=== PATIENT | male | born 1960 | race Two or more races ===

== ENCOUNTER 2024-12-20 07:57 | Inpatient (IN) | payer MEDICAID, OTHER ==
[~2024-12-20] VITALS: Ht 177.8 cm; Wt 95.8 kg
[2024-12-20 05:00] VITALS: BP 124/74; PULSE 102; RESP 18; TEMP 98.8; O2SAT 97
--- NOTE | 2024-12-20 08:45 | ED.PDOC ---
History of Present Illness HPI Comments 64M presents to the ER w/ prior Hx of Liver Cirrhosis which may be associated to the c/c of ABD pain. Pt's reports that the pt is a poor Hx and that he has had his ABD drained 3x in total with the recent drainage of being this Wednesday of 12/16/24. Pt's ABD is swollen and states that he used to drink a lot of alcohol, but is sober now. PMHx of HTN. Denies chills, fever, N/V/D, SOB, CP or no other associated symptom's, modifiers, recent injuries or sick contact at this time. Chief Complaint: Abdominal Pain Time Seen by MD: 08:20 Reviewed Notes: Nurses Notes, Medications, Allergies Allergies: Coded Allergies: NO KNOWN ALLERGIES (Unverified , 12/20/24) Information Source: Patient, Spouse Mode of Arrival: Wheelchair Severity: Moderate Timing: Days Duration: Since onset, Days Prehospital treatment: None Past Medical History PAST MEDICAL HISTORY: HTN Past Medical History (Other): Liver cirrhosis-Drained on Wednesday of 12/16/24 Surgical History: Denies all surgeries Family History Family History: Reviewed,noncontributory to illness, Unknown Social History Smoker: Non-Smoker Alcohol: Denies ETOH Use, Sober Drugs: Denies Drug Use Lives In: Home Constitutional: denies: chills, diaphoresis, fatigue, fever, malaise, sweats, weakness, others EENTM: denies: blurred vision, double vision, ear bleeding, ear discharge, ear drainage, ear pain, ear ringing, eye pain, eye redness, hearing loss, mouth pain, mouth swelling, nasal discharge, nose bleeding, nose congestion, nose pain, photophobia, tearing, throat pain, throat swelling, voice changes, others Respiratory: denies: cough, hemoptysis, orthopnea, SOB at rest, shortness of breath, SOB with excertion, stridor, wheezing, others Cardiovascular: denies: chest pain, dizzy spells, diaphoresis, Dyspnea on exertion, edema, irregular heart beat, left arm pain, lightheadedness, palpitations, PND, syncope, others Gastrointestinal: reports: abdomen distended; denies: abdominal pain, blood streaked bowels, constipated, diarrhea, dysphagia, difficulty swallowing, hematemesis, melena, nausea, poor appetite, poor fluid intake, rectal bleeding, rectal pain, vomiting, others Genitourinary: denies: burning, dysuria, flank pain, frequency, hematuria, incontinence, penile discharge, penile sore, pain, testicle pain, testicle swelling, urgency, others Neurological: denies: dizziness, fainting, headache, left sided numbness, left sided weakness, numbness, paresthesia, pre-existing deficit, right sided numbness, right sided weakness, seizure, speech problems, tingling, tremors, weakness, others Musculoskeletal: denies: back pain, gout, joint pain, joint swelling, muscle pain, muscle stiffness, neck pain, others Integumetry: denies: bruises, change in color, change in hair/nails, dryness, laceration, lesions, lumps, rash, wounds, others Allergic/Immunocompromised: denies: Difficulty Healing, Frequent Infections, Hives, Itching, others Hematologic/Lymphatic: denies: anemia, blood clots, easy bleeding, easy bruising, swollen glands, others Endocrine: denies: excessive hunger, excessive sweating, excessive thirst, excessive urination, flushing, intolerance to cold, intolerance to heat, unexplained weight gain, unexplained weight loss, others Psychiatric: denies: anxiety, bipolar disorder, depression, hopeless, panic disorder, schizophrenia, sleepless, suicidal, others All Other Systems: Reviewed and Negative Physical Exam General Appearance: Moderate Distress, Normal HEENT: Normal ENT Inspection, Pharynx Normal, Scleral Icterus (L), Scleral Icterus (R), TMs Normal Neck: Full Range of Motion, Non-Tender, Normal, Normal Inspection Respiratory: Chest Non-Tender, Lungs Clear, No Accessory Muscle Use, No Respiratory Distress, Normal Breath Sounds Cardiovascular: No Edema, No JVD, No Murmur, No Gallop, Normal Peripheral Pulses, Regular Rate/Rhythm Breast Exam: Deferred Gastrointestinal: Distended, No Organomegaly, Non Tender, No Pulsatile Mass, Normal Bowel Sounds, Soft Genitalia: Deferred Pelvic: Deferred Rectal: Deferred Extremities: No calf tenderness, Normal capillary refill, Normal inspection, Normal range of motion, Non-tender, Pedal edema Musculoskeletal : Apperance: Normal Neurologic: Alert, saw tailer II-XII nml as Tested, No Motor Deficits, Normal Affect, Normal Mood, No Sensory Deficits Cerebellar Function: NOT DONE Reflexes: NOT DONE Skin: Dry, Normal Color, Warm Peripheral Pulses: 3+ Radial (R), 3+ Radial (L) Lymphatic: No Adenopathy Was a procedure done? Was a procedure done?: No Differential Dx Considerations may include: Liver cirrhosis Electrolyte imbalance X-Ray, Labs, Meds, VS Vital Signs Date Time Temp Pulse Resp B/P (MAP) Pulse Ox O2 Delivery O2 Flow Rate FiO2 12/20/24 09:52 100 18 97 Room Air 12/20/24 09:52 97.6 100 18 118/73 (88) 97 97.6 12/20/24 08:07 98.3 102 18 110/75 (87) 98 Lab Test 12/20/24 08:42 12/20/24 08:34 Range/Units White Blood Count 6.1 4.4-10.8 10^3/uL Red Blood Count 3.37 L 4.5-5.90 10^6/uL Hemoglobin 11.6 L 13.5-17.5 g/dL Hematocrit 33.1 L 41.0-53.0 % Mean Corpuscular Volume 98.4 80.0-100.0 fL Mean Corpuscular Hemoglobin 34.4 H 28.0-32.0 pg Mean Corpuscular Hemoglobin Concent 35.0 32.0-36.0 g/dL Red Cell Distribution Width 16.8 H 11.8-14.3 % Platelet Count 230 140-450 10^3/uL Mean Platelet Volume 6.9 6.9-10.8 fL Neutrophils (%) (Auto) 57.5 37.0-80.0 % Lymphocytes (%) (Auto) 19.0 10.0-50.0 % Monocytes (%) (Auto) 17.6 H 0.0-12.0 % Eosinophils (%) (Auto) 3.3 0.0-7.0 % Basophils (%) (Auto) 2.6 H 0.0-2.0 % Neutrophils # (Auto) 3.5 1.6-8.6 10 ^3/uL Lymphocytes # (Auto) 1.2 0.4-5.4 10 ^3/uL Monocytes # (Auto) 1.1 0-1.3 10 ^3/uL Eosinophils # (Auto) 0.2 0-0.8 10 ^3/uL Basophils # (Auto) 0.2 0-0.2 10 ^3/uL Nucleated Red Blood Cells 0.1 % Prothrombin Time 15.1 H 9.3-11.8 sec Prothrombin Time INR 1.48 H 0.9-1.15 Sodium Level 128 L 136-145 mmol/L Potassium Level 5.0 3.5-5.1 mmol/L Chloride Level 95 L 98-107 mmol/L Carbon Dioxide Level 26 20-31 mmol/L Anion Gap 7 5-15 Blood Urea Nitrogen 23 9-23 mg/dL Creatinine 1.48 H 0.700-1.30 mg/dL Glomerular Filtration Rate Calc 53 >90 mL/min BUN/Creatinine Ratio 15.5 10.0-20.0 Serum Glucose 82 74-106 mg/dL Calcium Level 8.7 8.7-10.4 mg/dL Urine Color Dark-yellow Yellow Urine Clarity Turbid H Clear Urine pH 5.5 5.0-9.0 Urine Specific [place] 1.030 1.001-1.035 Urine Protein 1+ H Negative Urine Ketones Trace Negative Urine Blood Negative Negative /uL Urine Nitrite Negative Negative Urine Bilirubin 1+ Negative Urine Urobilinogen 4 H Negative mg/dL Urine Leukocyte Esterase Trace Negative /uL Urine RBC 4 0 - 3 /hpf Urine Microscopic WBC 10 H 0-3 /HPF Urine Squamous Epithelial Cells Few <5 /hpf Urine Bacteria None seen None Seen /hpf Urine Hyaline Casts Many 0 - 2 /lpf Urine Granular Casts Few 0 /lpf Urine Mucus Few None Seen Urine Glucose Normal Normal mg/dL Patient alert. Complaining of abdominal distention. Liver cirrhosis with ascites. Vitals stable. Does not take care himself. Require paracentesis. Urinalysis shows UTI. WBC within normal limits. He is anemic. Reviewed his history. Explained to the patient. Continue monitoring. Time of 1ST Reevaluation: 08:50 Reevaluation 1ST: Unchanged Patient Education/Counseling: Diagnosis, Treatment, Prognosis Family Education/Counseling: No Family Present Departure 1 Departure Time of Disposition: 11:12 Impression: Primary Impression: Cirrhosis of liver with ascites Qualified Codes: K70.31 - Alcoholic cirrhosis of liver with ascites Disposition: ADMITTED INPATIENT Admit to: Med Surg Condition: Guarded Critical Care Note Critical Care Time?: Yes (45 min-critical care time only) Critical care comment: Abdominal distention require paracentesis continue monitoring Stability Stability form required: No Heart Score Heart Score: Heart Score Response (Comments) Value History N/A 0 EKG N/A 0 Age N/A 0 Risk Factors N/A 0 Troponin N/A 0 Total 0 I personally scribed for CHARISSA GRAFF MD ([email or web address]) on 12/20/24 at 08:45. Electronically submitted by Rainer Wilson ([email or web address]). CHARISSA GRAFF MD Dec 20, 2024 08:45
[2024-12-20 08:57] LABS: Eosinophils # (auto) 0.2 10 ^3/uL (0-0.8); Monocytes # (auto) 1.1 10 ^3/uL (0-1.3); Nucleated Red Blood Cells % 0.1 %
[2024-12-20 08:59] LABS: Basophils # (auto) 0.2 10 ^3/uL (0-0.2); Basophils % (auto) 2.6 % (0.0-2.0); Eosinophils % (auto) 3.3 % (0.0-7.0); Hematocrit 33.1 % (41.0-53.0); Hemoglobin 11.6 g/dL (13.5-17.5); Lymphocytes # (auto) 1.2 10 ^3/uL (0.4-5.4); Mean Corpuscular Hemoglobin 34.4 pg (28.0-32.0); Mean Corpuscular Volume 98.4 fL (80.0-100.0); Monocytes % (auto) 17.6 % (0.0-12.0); Neutrophils # (auto) 3.5 10 ^3/uL (1.6-8.6); Neutrophils % (auto) 57.5 % (37.0-80.0); Red Blood Cells 3.37 10^6/uL (4.5-5.90); Red Cell Distribution Width 16.8 % (11.8-14.3); White Blood Cell 6.1 10^3/uL (4.4-10.8)
[2024-12-20 09:06] LABS: Anion Gap 7 (5-15); Carbon Dioxide 26 mmol/L (20-31)
[2024-12-20 09:11] LABS: BUN/Creatinine Ratio 15.5 (10.0-20.0); Blood Urea Nitrogen 23 mg/dL (9-23)
[2024-12-20 09:12] LABS: Calcium 8.7 mg/dL (8.7-10.4); Chloride 95 mmol/L (98-107); Glucose 82 mg/dL (74-106); Sodium 128 mmol/L (136-145)
[2024-12-20 09:13] LABS: INR 1.48 (0.9-1.15); Prothrombin Time 15.1 sec (9.3-11.8)
[2024-12-20 09:22] LABS: Platelet Count (auto) 230 10^3/uL (140-450)
[2024-12-20 10:11] LABS: Urine Bacteria None Seen /hpf (None Seen)
[2024-12-20 10:27] LABS: Urine Blood Negative /uL (Negative); Urine Clarity Turbid (Clear); Urine Color Dark-Yellow (Yellow); Urine Hyaline Cast MANY /lpf (0 - 2); Urine Mucus FEW (None Seen); Urine Protein, UAD 1+ (Negative); Urine Squamous Epithelial Cell FEW /hpf (<5); Urine Urobilinogen 4 mg/dL (Negative); Urine WBC 10 /HPF (0-3); Urine pH 5.5 (5.0-9.0)
[2024-12-20] MEDS: cefTRIAXone 1GM/50ML D5W 50 ML IV ONE (12:14)
[2024-12-20] MEDS ORDERED: ONDANSETRON HCL 4 MG/2 ML VIAL IV PRN (14:00)
[2024-12-20] MEDS ORDERED: DOCUSATE SOD 100 MG CAP PO PRN (14:00)
[2024-12-20] MEDS ORDERED: MORPHINE SULFATE INJ 2 MG/ml SYRG IV PRN ×2 (14:00)
[2024-12-20] MEDS ORDERED: NITROGLYCERIN 0.4 MG SL TAB SL PRN (14:00)
[2024-12-20] MEDS: SODIUM CHLOR 0.9% PF (SALINE LOCK) 10ML VIAL/SYR IV SCH (14:00)
[2024-12-20] MEDS ORDERED: ACETAMINOPHEN 325 MG TAB PO PRN (14:00)
[2024-12-20] MEDS ORDERED: SPIR100T4 PO (14:08)
[2024-12-20] MEDS ORDERED: LISI20TA56 PO (14:08)
[2024-12-20] MEDS ORDERED: FOLI-119 PO (14:08)
[2024-12-20] MEDS ORDERED: FERR325T20 PO (14:08)
[2024-12-20] MEDS ORDERED: THIA100T10 PO (14:08)
[2024-12-20] MEDS ORDERED: FURO40TA4 PO (14:08)
[2024-12-20] MEDS ORDERED: POTA-211 PO (14:08)
[2024-12-20] MEDS ORDERED: MAGN400T40 PO (14:08)
--- NOTE | 2024-12-20 14:19 | DVHHP2 ---
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 Patient states the pain began a couple days ago. He went to see his primary care provider and was sent to the ER due to the abdominal distention. Patient is jaundice, his abdomen is distended, firm, and tender when palpitated. Patient states that he has had to get the fluid taken off his abdomen a few times, last time was 12/09/2024. Cardiovascular: HTN Hepatobiliary: Cirrhosis, Other (ascites) Past Surgical History: None Family History: None Smoke: No ALCOHOL: none (quite 1 year ago) Drugs: None Lives: Alone Domestic Violence: Neg Review of Systems Constitutional: No: Fever, Chills, Sweats, Weakness, Malaise, Other Eyes: No: Pain, Vision change, Conjunctivae inflammation, Eyelid inflammation, Other, Redness ENT: No: Ear pain, Ear discharge, Nose pain, Nose discharge, Nose congestion, Mouth pain, Mouth swelling, Throat pain, Throat swelling, Other Respiratory: No: Cough, Dry, Shortness of breath, SOB with excertion, Wheezing, Hemoptysis, Pleuritic Pain, Sputum, Wheezing, Other Cardiovascular: No: Chest Pain, Palpitations, Orthopnea, Paroxysmal Noc. Dyspnea, Edema, Lt Headedness, Other Gastrointestinal: Abdominal Pain; No: Nausea, Vomiting, Diarrhea, Constipation, Melena, Hematochezia, Other Genitourinary: No Dysuria, No Frequency, No Incontinence, No Hematuria, No Retention, No Other Musculoskeletal: No: other, neck pain, shoulder pain, arm pain, back pain, hand pain, leg pain, foot pain Skin: No: Rash, Lesions, Jaundice, Bruising, Other Neurological: No: Weakness, Numbness, Incoordination, Change in speech, Confusion, Seizures, Other Allergies: Coded Allergies: NO KNOWN ALLERGIES (Unverified , 12/20/24) Exam Vital Signs Vital Signs Date Time Temp Pulse Resp B/P (MAP) Pulse Ox O2 Delivery O2 Flow Rate FiO2 12/20/24 09:52 100 18 97 Room Air 12/20/24 09:52 97.6 118/73 (88) 97.6 General Appearance: Alert, Oriented X3, Cooperative, moderate distress HEENT: Atraumatic, PERRLA Respiratory: Clear to auscultation, Normal air movement Cardiovascular: Normal S1, Normal S2, Other (Tachycardia) Abdominal: Other (Distended and firm, tender when palpitated) Extremities: No clubbing, No cyanosis, Other Skin: No rashes, No breakdown (Jaundice) Neuro: Other (uses a walker at baseline, weak due to pain) Psych/Mental Status: Mood NL Labs/Xrays Labs Test 12/20/24 13:35 12/20/24 08:42 12/20/24 08:34 Range/Units White Blood Count 6.1 4.4-10.8 10^3/uL Red Blood Count 3.37 L 4.5-5.90 10^6/uL Hemoglobin 11.6 L 13.5-17.5 g/dL Hematocrit 33.1 L 41.0-53.0 % Mean Corpuscular Volume 98.4 80.0-100.0 fL Mean Corpuscular Hemoglobin 34.4 H 28.0-32.0 pg Mean Corpuscular Hemoglobin Concent 35.0 32.0-36.0 g/dL Red Cell Distribution Width 16.8 H 11.8-14.3 % Platelet Count 230 140-450 10^3/uL Mean Platelet Volume 6.9 6.9-10.8 fL Neutrophils (%) (Auto) 57.5 37.0-80.0 % Lymphocytes (%) (Auto) 19.0 10.0-50.0 % Monocytes (%) (Auto) 17.6 H 0.0-12.0 % Eosinophils (%) (Auto) 3.3 0.0-7.0 % Basophils (%) (Auto) 2.6 H 0.0-2.0 % Neutrophils # (Auto) 3.5 1.6-8.6 10 ^3/uL Lymphocytes # (Auto) 1.2 0.4-5.4 10 ^3/uL Monocytes # (Auto) 1.1 0-1.3 10 ^3/uL Eosinophils # (Auto) 0.2 0-0.8 10 ^3/uL Basophils # (Auto) 0.2 0-0.2 10 ^3/uL Nucleated Red Blood Cells 0.1 % Prothrombin Time 15.1 H 9.3-11.8 sec Prothrombin Time INR 1.48 H 0.9-1.15 Sodium Level 128 L 136-145 mmol/L Potassium Level 5.0 3.5-5.1 mmol/L Chloride Level 95 L 98-107 mmol/L Carbon Dioxide Level 26 20-31 mmol/L Anion Gap 7 5-15 Blood Urea Nitrogen 23 9-23 mg/dL Creatinine 1.48 H 0.700-1.30 mg/dL Glomerular Filtration Rate Calc 53 >90 mL/min BUN/Creatinine Ratio 15.5 10.0-20.0 Serum Glucose 82 74-106 mg/dL Calcium Level 8.7 8.7-10.4 mg/dL Urine Color Dark-yellow Yellow Urine Clarity Turbid H Clear Urine pH 5.5 5.0-9.0 Urine Specific [place] 1.030 1.001-1.035 Urine Protein 1+ H Negative Urine Ketones Trace Negative Urine Blood Negative Negative /uL Urine Nitrite Negative Negative Urine Bilirubin 1+ Negative Urine Urobilinogen 4 H Negative mg/dL Urine Leukocyte Esterase Trace Negative /uL Urine RBC 4 0 - 3 /hpf Urine Microscopic WBC 10 H 0-3 /HPF Urine Squamous Epithelial Cells Few <5 /hpf Urine Bacteria None seen None Seen /hpf Urine Hyaline Casts Many 0 - 2 /lpf Urine Granular Casts Few 0 /lpf Urine Mucus Few None Seen Urine Glucose Normal Normal mg/dL Assessment/Plan Assessment/Plan Assessment: Cirrhosis of liver with ascites, Hypertension, Plan: Admit to Tele, IR consult for paracentesis, Ammonia level, PT/PTT, CMP, Abdominal ultrasound, Home medications reconciled, Plan discussed with: Patient, Other (friend) My Orders Orders - ROXI CALLE Procedure Category Date Status Time Ammonia LAB 12/20/24 In Process 13:01 * Radiologist Consult CONS 12/20/24 Transmitted 13:45 Date of Service: Dec 20, 2024 Billing Provider: ROXI CALLE Common Visit Codes: [id number] INP/OBS CARE (HIGH) ROXI CALLE Dec 20, 2024 14:19
[2024-12-20 14:27] LABS: Alanine Aminotransferase 34 U/L (7-40); Anion Gap 6 (5-15); BUN/Creatinine Ratio 15.6 (10.0-20.0); Blood Urea Nitrogen 23 mg/dL (9-23); Calcium 8.8 mg/dL (8.7-10.4); Carbon Dioxide 26 mmol/L (20-31); Glucose 102 mg/dL (74-106); Total Protein 6.7 g/dL (5.7-8.2)
[2024-12-20 14:29] LABS: Albumin 2.7 g/dL (3.2-4.8); Alkaline Phosphatase 214 U/L (46-116); Aspartate Aminotransferase 98 U/L (13-40); Bilirubin, Total 5.1 mg/dL (0.2-1.0); Chloride 96 mmol/L (98-107); Sodium 128 mmol/L (136-145)
--- NOTE | 2024-12-20 18:41 | DVH ---
ULTRASOUND ABDOMEN limited, 4 QUADRANTS INDICATION: ascites Evaluate for ascites. TECHNIQUE: The four quadrants of the abdomen were scanned in mccain-scale to assess for the presence of ascites. N o solid organ assessment was performed. ( 9 images) FINDINGS/IMPRESSIONS: Large amount of ascites in all 4 quadrants.
[2024-12-20 19:56] VITALS: PULSE 122; RESP 22; O2SAT 94
[2024-12-20] MEDS: HYDROcodone-ACET 5/325MG TAB PO PRN (20:23)
[2024-12-20] MEDS: FUROSEMIDE 40 MG TAB PO SCH (21:43)
[2024-12-21] VITALS (7 sets, daily range): BP systolic 96–124; BP diastolic 43–89; PULSE 98–116; RESP 16–20; TEMP 98.1–98.7; O2SAT 96–98
[2024-12-21 06:47] LABS: Basophils # (auto) 0.1 10 ^3/uL (0-0.2); Basophils % (auto) 2.1 % (0.0-2.0); Eosinophils # (auto) 0.2 10 ^3/uL (0-0.8); Eosinophils % (auto) 2.9 % (0.0-7.0); Hemoglobin 11.7 g/dL (13.5-17.5); Lymphocytes # (auto) 1.2 10 ^3/uL (0.4-5.4); Lymphocytes % (auto) 21.1 % (10.0-50.0); Mean Corpuscular Hemoglobin 33.7 pg (28.0-32.0); Mean Corpuscular Hgb Conc. 34.4 g/dL (32.0-36.0); Mean Corpuscular Volume 97.9 fL (80.0-100.0); Monocytes # (auto) 0.9 10 ^3/uL (0-1.3); Monocytes % (auto) 16.7 % (0.0-12.0); Neutrophils # (auto) 3.1 10 ^3/uL (1.6-8.6); Neutrophils % (auto) 57.2 % (37.0-80.0); Nucleated Red Blood Cells % 0.1 %; Platelet Count (auto) 222 10^3/uL (140-450); Red Blood Cells 3.48 10^6/uL (4.5-5.90); Red Cell Distribution Width 16.6 % (11.8-14.3); White Blood Cell 5.5 10^3/uL (4.4-10.8)
[2024-12-21 06:58] LABS: Alanine Aminotransferase 33 U/L (7-40); Anion Gap 8 (5-15); BUN/Creatinine Ratio 16.7 (10.0-20.0); Calcium 8.8 mg/dL (8.7-10.4); Carbon Dioxide 25 mmol/L (20-31); Glucose 92 mg/dL (74-106); Potassium 4.5 mmol/L (3.5-5.1); Total Protein 6.5 g/dL (5.7-8.2)
[2024-12-21 07:02] LABS: Albumin 2.6 g/dL (3.2-4.8); Alkaline Phosphatase 151 U/L (46-116); Aspartate Aminotransferase 89 U/L (13-40); Blood Urea Nitrogen 24 mg/dL (9-23); Chloride 95 mmol/L (98-107); Sodium 128 mmol/L (136-145)
[2024-12-21] MEDS: FERROUS SULFATE 325mg EC TAB PO SCH (10:28)
[2024-12-21] MEDS: THIAMINE HCL 100 MG TAB PO SCH (10:28)
[2024-12-21] MEDS: FOLIC ACID 1 MG TAB PO SCH (10:28)
[2024-12-21] MEDS: MAGNESIUM OXIDE 400 MG TAB PO SCH (10:28)
[2024-12-21] MEDS: SPIRONOLACTONE 25 MG TAB PO SCH (10:28)
[2024-12-21] MEDS: LISINOPRIL 20 MG TAB PO SCH (10:30)
--- NOTE | 2024-12-21 10:44 | DVH ---
US PARACENTESIS, HISTORY: ASCITES PROCEDURE: Informed consent was obtained. The patient was placed in supine position. A limited locali zation ultrasound of the abdomen was obtained, and the skin site over the largest pocket of fluid was marked and entry site was prepped with chlorhexidine which was allowed to dry and draped in the usua l sterile fashion. Time out was performed. Following administration of 1% lidocaine local anesthetic, a 5 American centesis needle catheter was percutaneously inserted into the peritoneal collection until fluid was aspirated. The catheter was advanced into the fluid collection and the needle removed. Abo ut 8000 cc of fluid was aspirated and specimen sent for appropriate cultures/cytology/cultures and cy tology. The catheter was then removed and a sterile dressing applied. 12.5 gm of albumin colloid infu joo was given IV. No immediate complication was identified. FINDINGS: Limited ultrasound imaging demonstrates moderate to large ascites. Aspirated fluid was dania r and serous. IMPRESSION: US-guided paracentesis with 8L removed.
[2024-12-21] MEDS: ALBUMIN 25% 50 ML IV ONE (11:27)
--- NOTE | 2024-12-21 12:36 | DVHPN2 ---
Reviewed: Care Plan, H&P, Labs, Medications, Previous Orders, Radiology Changes from previous H/P or p: No Changes Eyes: No Pain, No Vision change, No Conjunctivae inflammation, No Eyelid inflammation, No Other, No Redness ENT: No Ear pain, No Ear discharge, No Nose pain, No Nose discharge, No Nose congestion, No Mouth pain, No Mouth swelling, No Throat pain, No Throat swelling, No Other Cardiovascular: No Chest Pain, No Palpitations, No Orthopnea, No Paroxysmal Noc. Dyspnea, No Edema, No Lt Headedness, No Other Respiratory: No Cough, No Dry, No Shortness of breath, No SOB with excertion, No Wheezing, No Hemoptysis, No Pleuritic Pain, No Sputum, No Other Gastrointestinal: No Nausea, No Vomiting; Abdominal Pain; No Diarrhea, No Constipation, No Melena, No Hematochezia, No Other Genitourinary: No Dysuria, No Frequency, No Incontinence, No Hematuria, No Retention, No Other Musculoskeletal: No other, No neck pain, No shoulder pain, No arm pain, No back pain, No hand pain, No leg pain, No foot pain Skin: No Rash, No Lesions, No Jaundice, No Bruising, No Other Objective Vitals Vital Signs Date Time Temp Pulse Resp B/P (MAP) Pulse Ox O2 Delivery O2 Flow Rate FiO2 12/21/24 10:30 112/64 12/21/24 09:00 98.1 116 16 96 98.1 12/21/24 07:30 Room Air* 0 21 Intake/Output Intake and Output 12/21/24 07:00 Output Total 200 ml Balance -200 ml Output Urine Total 200 ml # Bowel Movements 1 Medications Current Medications Medications Dose Ordered Sig/[place]aston Route Start Time Stop Time Status Last Admin Dose Admin Sodium Chloride 10 ml Q8HR IV 12/20/24 14:00 12/21/24 05:44 10 ML Acetaminophen/ Hydrocodone Bitart 1 tab Q4HP PRN PO 12/20/24 14:00 12/20/24 20:23 1 TAB Ondansetron HCl 4 mg Q4HP PRN IV 12/20/24 14:00 Docusate Sodium 100 mg BIDPRN PRN PO 12/20/24 14:00 Acetaminophen 650 mg Q6HP PRN PO 12/20/24 14:00 Morphine Sulfate 2 mg Q4HPRN PRN IV 12/20/24 14:00 Nitroglycerin 0.4 mg Q5MINP PRN SL 12/20/24 14:00 Morphine Sulfate 2 mg Q30M PRN IV 12/20/24 14:00 Furosemide 40 mg BID PO 12/20/24 22:00 12/21/24 10:29 40 MG Lisinopril 20 mg DAILY PO 12/21/24 10:00 12/21/24 10:30 20 MG Thiamine HCl 100 mg DAILY PO 12/21/24 10:00 12/21/24 10:28 100 MG Ferrous Sulfate 325 mg DAILY PO 12/21/24 10:00 12/21/24 10:28 325 MG Folic Acid 1 mg DAILY PO 12/21/24 10:00 12/21/24 10:28 1 MG Magnesium Oxide 400 mg DAILY PO 12/21/24 10:00 12/21/24 10:28 400 MG Spironolactone 100 mg DAILY PO 12/21/24 10:00 12/21/24 10:28 100 MG Laboratory Results Laboratory Tests 12/21/24 06:11 Chemistry Test 12/21/24 06:11 Albumin 2.6 g/dL (3.2-4.8) L Calcium Level 8.8 mg/dL (8.7-10.4) Total Protein 6.5 g/dL (5.7-8.2) LFT Test 12/21/24 06:11 Alanine Aminotransferase (ALT) 33 U/L (7-40) Alkaline Phosphatase 151 U/L (46-116) H Aspartate Amino Transferase (AST) 89 U/L (13-40) H Total Bilirubin 6.0 mg/dL (0.2-1.0) H Urinalysis Test 12/20/24 08:34 Urine Color Dark-yellow (Yellow) Urine Clarity Turbid (Clear) H Urine pH 5.5 (5.0-9.0) Urine Specific [place] 1.030 (1.001-1.035) Urine Protein 1+ (Negative) H Urine Ketones Trace (Negative) Urine Blood Negative /uL (Negative) Urine Nitrite Negative (Negative) Urine Bilirubin 1+ (Negative) Urine Urobilinogen 4 mg/dL (Negative) H Urine Leukocyte Esterase Trace /uL (Negative) Urine RBC 4 /hpf (0 - 3) Urine Microscopic WBC 10 /HPF (0-3) H Urine Squamous Epithelial Cells Few /hpf (<5) Urine Bacteria None seen /hpf (None Seen) Urine Hyaline Casts Many /lpf (0 - 2) Urine Granular Casts Few /lpf (0) Urine Mucus Few (None Seen) Urine Glucose Normal mg/dL (Normal) Labs and/or images reviewed: Labs reviewed by me, Image(s) reviewed by me Assessment/Plan Assessment/Plan Abdominal pain Ascites: Status post removal of 8 L of fluid by radiologist, Lasix spironolactone, consult for GI Dr. Emily Villafana Cirrhosis of liver Chronic current alcohol abuse: Counseling thiamine folic acid Hyperammonemia with ammonia 46: Lactulose Severe hypo Albuminemia with albumin 2.7: Albumin transfusion Chronic malnutrition Jaundice bilirubin 5.1 Hypertension: Lisinopril Time spent 45 minutes Plan discussed with: Patient My Orders Orders - SAMAN SONI MD Procedure Category Date Status Time * Gi D[facility] [employer]ingo Manager CONS 12/21/24 Transmitted 12:30 Date of Service: Dec 21, 2024 Billing Provider: SAMAN SONI MD Common Visit Codes: [id number] INP/OBS CARE(HIGH) SAMAN SONI MD Dec 21, 2024 12:36
[2024-12-21 13:02] LABS: Body Fluid Polymorphonuclear 20 % (0-25); Body Fluid Red Blood Cells 70 CUMM (0-2000); Body Fluid White Blood Cells 230 CUMM (0-200)
[2024-12-21] MEDS: ALBUMIN 25% 100 ML IV SCH (13:31)
--- NOTE | 2024-12-21 13:36 | ECG ---
[facility] Test Date: 2024-12-20 Test Time: 08:15:41 Pat Name: PASTOR MCNEILL Department: ER Room: [facility]6T B Gender: M Sports Editor: ADELINE : 1960 Requested By: CHARISSA GRAFF Order Number: [id number] Reading MD: Ghanshyam Addison Measurements Intervals [place] Rate: 105 P: 8 [place]: 131 QRS: -24 QRSD: 94 T: -11 QT: 348 QTc: 461 Interpretive Statements Sinus tachycardia Borderline left axis deviation Consider anterior infarct Borderline T abnormalities, inferior leads Electronically Signed On 12-23-2024 17:51:17 PST by Ghanshyam Addison Please click the below link to view image of tracing.
--- NOTE | 2024-12-21 13:55 | DVHINCON2 ---
GI Consult Consult Note GI consult note Date of Consultation: 12/21/2024 Chief Complaint: Jaundice and ascites Referring Physician: Dr. Gurmeet Soni H&P: 64-year-old male PMH liver cirrhosis, ascites, and hypertension, Presented to ER with abdominal pain Patient is SP paracentesis with 8 L removed No abdominal pain at this time. No nausea or vomiting. No hematemesis. No melena or red blood in stool Patient sees Dr. Javed on outpatient basis Unsure if he has had EGD in the past Patient admits to being sober for one year now Past Medical History: HTN, cirrhosis, ascites Past Surgical History: Denies Social History: NO smoking, drinking ETOH and use of illegal drugs. Family History: Noncontributory Review of Systems: Constitutional: no fever, chill, weight loss HEENT:+ scleral icterus Heart: no chest pain, no chest pressure Lung: no cough, no dyspnea with exertion Abdomen: see HPI Physical exam: General: NAD, AAOX3 Chest: lung shepherd clear to auscultation Heart: RRR, no murmur Abdomen: Mild-distended, no tenderness to palpation, +BS Skin: + jaundice Labs: Labs Test 12/21/24 10:10 12/21/24 06:11 12/20/24 13:35 12/20/24 08:42 Range/Units Body Fluid Source Peritoneal fluid Body Fluid pH 8.0 Body Fluid WBC (Manual) 230 H 0-200 CUMM Body Fluid RBC (Manual) 70 0-2000 CUMM Body Fluid Mononuclear Cells 80 % Body Fluid Polymorphonuclear Cells 20 0-25 % White Blood Count 5.5 4.4-10.8 10^3/uL Red Blood Count 3.48 L 4.5-5.90 10^6/uL Hemoglobin 11.7 L 13.5-17.5 g/dL Hematocrit 34.0 L 41.0-53.0 % Mean Corpuscular Volume 97.9 80.0-100.0 fL Mean Corpuscular Hemoglobin 33.7 H 28.0-32.0 pg Mean Corpuscular Hemoglobin Concent 34.4 32.0-36.0 g/dL Red Cell Distribution Width 16.6 H 11.8-14.3 % Platelet Count 222 140-450 10^3/uL Mean Platelet Volume 7.1 6.9-10.8 fL Neutrophils (%) (Auto) 57.2 37.0-80.0 % Lymphocytes (%) (Auto) 21.1 10.0-50.0 % Monocytes (%) (Auto) 16.7 H 0.0-12.0 % Eosinophils (%) (Auto) 2.9 0.0-7.0 % Basophils (%) (Auto) 2.1 H 0.0-2.0 % Neutrophils # (Auto) 3.1 1.6-8.6 10 ^3/uL Lymphocytes # (Auto) 1.2 0.4-5.4 10 ^3/uL Monocytes # (Auto) 0.9 0-1.3 10 ^3/uL Eosinophils # (Auto) 0.2 0-0.8 10 ^3/uL Basophils # (Auto) 0.1 0-0.2 10 ^3/uL Nucleated Red Blood Cells 0.1 % Sodium Level 128 L 136-145 mmol/L Potassium Level 4.5 3.5-5.1 mmol/L Chloride Level 95 L 98-107 mmol/L Carbon Dioxide Level 25 20-31 mmol/L Anion Gap 8 5-15 Blood Urea Nitrogen 24 H 9-23 mg/dL Creatinine 1.44 H 0.700-1.30 mg/dL Glomerular Filtration Rate Calc 55 >90 mL/min BUN/Creatinine Ratio 16.7 10.0-20.0 Serum Glucose 92 74-106 mg/dL Calcium Level 8.8 8.7-10.4 mg/dL Total Bilirubin 6.0 H 0.2-1.0 mg/dL Aspartate Amino Transferase (AST) 89 H 13-40 U/L Alanine Aminotransferase (ALT) 33 7-40 U/L Alkaline Phosphatase 151 H 46-116 U/L Total Protein 6.5 5.7-8.2 g/dL Albumin 2.6 L 3.2-4.8 g/dL Ammonia 46 H 11-32 umol/L Prothrombin Time 15.1 H 9.3-11.8 sec Prothrombin Time INR 1.48 H 0.9-1.15 Test 12/20/24 08:34 Range/Units Urine Color Dark-yellow Yellow Urine Clarity Turbid H Clear Urine pH 5.5 5.0-9.0 Urine Specific [place] 1.030 1.001-1.035 Urine Protein 1+ H Negative Urine Ketones Trace Negative Urine Blood Negative Negative /uL Urine Nitrite Negative Negative Urine Bilirubin 1+ Negative Urine Urobilinogen 4 H Negative mg/dL Urine Leukocyte Esterase Trace Negative /uL Urine RBC 4 0 - 3 /hpf Urine Microscopic WBC 10 H 0-3 /HPF Urine Squamous Epithelial Cells Few <5 /hpf Urine Bacteria None seen None Seen /hpf Urine Hyaline Casts Many 0 - 2 /lpf Urine Granular Casts Few 0 /lpf Urine Mucus Few None Seen Urine Glucose Normal Normal mg/dL Imaging: Abdominal ultrasound FINDINGS/IMPRESSIONS: Large amount of ascites in all 4 quadrants. Assessment: Abdominal pain improving Ascites improving Liver cirrhosis History of alcohol abuse Elevated ammonia Plan: Discussed with Dr. Villafana Monitor labs Lactulose Outpatient GI follow-up with Dr. Javed recommended Thank you for this consult Date of Service: Dec 21, 2024 Billing Provider: SHAY SONI Common Visit Codes: CONSULT ONLY Consultation Codes: [id number] CONSULT <45MIN SHAY SONI Dec 21, 2024 13:55
[2024-12-21] MEDS: LACTULOSE 20Gm/30ML SOLN PO SCH (17:19)
[2024-12-22] VITALS (7 sets, daily range): BP systolic 92–114; BP diastolic 57–69; PULSE 96–107; RESP 16–20; TEMP 97.5–98.6; O2SAT 96–99
--- NOTE | 2024-12-22 11:03 | DVHPN2 ---
Reviewed: Care Plan, H&P, Labs, Medications, Previous Orders, Radiology Changes from previous H/P or p: No Changes Eyes: No Pain, No Vision change, No Conjunctivae inflammation, No Eyelid inflammation, No Other, No Redness ENT: No Ear pain, No Ear discharge, No Nose pain, No Nose discharge, No Nose congestion, No Mouth pain, No Mouth swelling, No Throat pain, No Throat swelling, No Other Cardiovascular: No Chest Pain, No Palpitations, No Orthopnea, No Paroxysmal Noc. Dyspnea, No Edema, No Lt Headedness, No Other Respiratory: No Cough, No Dry, No Shortness of breath, No SOB with excertion, No Wheezing, No Hemoptysis, No Pleuritic Pain, No Sputum, No Other Gastrointestinal: No Nausea, No Vomiting; Abdominal Pain; No Diarrhea, No Constipation, No Melena, No Hematochezia, No Other Genitourinary: No Dysuria, No Frequency, No Incontinence, No Hematuria, No Retention, No Other Musculoskeletal: No other, No neck pain, No shoulder pain, No arm pain, No back pain, No hand pain, No leg pain, No foot pain Skin: No Rash, No Lesions, No Jaundice, No Bruising, No Other Objective Vitals Vital Signs Date Time Temp Pulse Resp B/P (MAP) Pulse Ox O2 Delivery O2 Flow Rate FiO2 12/22/24 10:16 106/62 12/22/24 09:00 98.1 100 20 97 98.1 12/22/24 08:00 Room Air* 0 21 Intake/Output Intake and Output 12/22/24 07:00 Intake Total 2200 ml Balance 2200 ml Intake Oral 2050 ml IV Total 150 ml # Voids 4 # Bowel Movements 2 Medications Current Medications Medications Dose Ordered Sig/[place] Route Start Time Stop Time Status Last Admin Dose Admin Sodium Chloride 10 ml Q8HR IV 12/20/24 14:00 12/22/24 05:53 10 ML Acetaminophen/ Hydrocodone Bitart 1 tab Q4HP PRN PO 12/20/24 14:00 12/21/24 21:56 1 TAB Ondansetron HCl 4 mg Q4HP PRN IV 12/20/24 14:00 Docusate Sodium 100 mg BIDPRN PRN PO 12/20/24 14:00 Acetaminophen 650 mg Q6HP PRN PO 12/20/24 14:00 Morphine Sulfate 2 mg Q4HPRN PRN IV 12/20/24 14:00 Nitroglycerin 0.4 mg Q5MINP PRN SL 12/20/24 14:00 Morphine Sulfate 2 mg Q30M PRN IV 12/20/24 14:00 Furosemide 40 mg BID PO 12/20/24 22:00 12/22/24 10:16 40 MG Lisinopril 20 mg DAILY PO 12/21/24 10:00 12/22/24 10:15 20 MG Thiamine HCl 100 mg DAILY PO 12/21/24 10:00 12/22/24 10:16 100 MG Ferrous Sulfate 325 mg DAILY PO 12/21/24 10:00 12/22/24 10:16 325 MG Folic Acid 1 mg DAILY PO 12/21/24 10:00 12/22/24 10:16 1 MG Magnesium Oxide 400 mg DAILY PO 12/21/24 10:00 12/22/24 10:15 400 MG Spironolactone 100 mg DAILY PO 12/21/24 10:00 12/22/24 10:15 100 MG Lactulose 30 ml Q6HR PO 12/21/24 18:00 12/22/24 05:53 30 ML Laboratory Results Laboratory Tests 12/21/24 06:11 Urinalysis Test 12/20/24 08:34 Urine Color Dark-yellow (Yellow) Urine Clarity Turbid (Clear) H Urine pH 5.5 (5.0-9.0) Urine Specific [place] 1.030 (1.001-1.035) Urine Protein 1+ (Negative) H Urine Ketones Trace (Negative) Urine Blood Negative /uL (Negative) Urine Nitrite Negative (Negative) Urine Bilirubin 1+ (Negative) Urine Urobilinogen 4 mg/dL (Negative) H Urine Leukocyte Esterase Trace /uL (Negative) Urine RBC 4 /hpf (0 - 3) Urine Microscopic WBC 10 /HPF (0-3) H Urine Squamous Epithelial Cells Few /hpf (<5) Urine Bacteria None seen /hpf (None Seen) Urine Hyaline Casts Many /lpf (0 - 2) Urine Granular Casts Few /lpf (0) Urine Mucus Few (None Seen) Urine Glucose Normal mg/dL (Normal) Microbiology Microbiology Date/Time Source Procedure Growth Status 12/21/24 10:10 Ascities Fluid Gram Stain - Final Resulted 12/21/24 10:10 Ascities Fluid Body Fluid Culture - Preliminary Resulted Labs and/or images reviewed: Labs reviewed by me, Image(s) reviewed by me Assessment/Plan Assessment/Plan Acute Abdominal pain Ascites: Status post removal of 8 L of fluid by radiologist, Elijah spironolactone, consult for GI Dr. Emily Villafana Cirrhosis of liver Chronic current alcohol abuse: Counseling thiamine folic acid Hyperammonemia with ammonia 46: Lactulose Severe hypo Albuminemia with albumin 2.7: Albumin transfusion Chronic malnutrition Jaundice bilirubin 5.1 Hypertension: Lisinopril Time spent 45 minutes Plan discussed with: Patient My Orders Orders - SAMAN SONI MD Procedure Category Date Status Time * [facility] [employer] CONS 12/21/24 Transmitted 12:30 Lactulose Oral PHA 12/21/24 In Process 18:00 SAMAN SONI MD Dec 22, 2024 11:03
--- NOTE | 2024-12-22 11:08 | DVHPN2 ---
Reviewed: Care Plan, H&P, Labs, Medications, Previous Orders, Radiology Changes from previous H/P or p: No Changes Eyes: No Pain, No Vision change, No Conjunctivae inflammation, No Eyelid inflammation, No Other, No Redness ENT: No Ear pain, No Ear discharge, No Nose pain, No Nose discharge, No Nose congestion, No Mouth pain, No Mouth swelling, No Throat pain, No Throat swelling, No Other Cardiovascular: No Chest Pain, No Palpitations, No Orthopnea, No Paroxysmal Noc. Dyspnea, No Edema, No Lt Headedness, No Other Respiratory: No Cough, No Dry, No Shortness of breath, No SOB with excertion, No Wheezing, No Hemoptysis, No Pleuritic Pain, No Sputum, No Other Gastrointestinal: No Nausea, No Vomiting; Abdominal Pain; No Diarrhea, No Constipation, No Melena, No Hematochezia, No Other Genitourinary: No Dysuria, No Frequency, No Incontinence, No Hematuria, No Retention, No Other Musculoskeletal: No other, No neck pain, No shoulder pain, No arm pain, No back pain, No hand pain, No leg pain, No foot pain Skin: No Rash, No Lesions, No Jaundice, No Bruising, No Other Objective Vitals Vital Signs Date Time Temp Pulse Resp B/P (MAP) Pulse Ox O2 Delivery O2 Flow Rate FiO2 12/22/24 10:16 106/62 12/22/24 09:00 98.1 100 20 97 98.1 12/22/24 08:00 Room Air* 0 21 Intake/Output Intake and Output 12/22/24 07:00 Intake Total 2200 ml Balance 2200 ml Intake Oral 2050 ml IV Total 150 ml # Voids 4 # Bowel Movements 2 Medications Current Medications Medications Dose Ordered Sig/[place] Route Start Time Stop Time Status Last Admin Dose Admin Sodium Chloride 10 ml Q8HR IV 12/20/24 14:00 12/22/24 05:53 10 ML Acetaminophen/ Hydrocodone Bitart 1 tab Q4HP PRN PO 12/20/24 14:00 12/21/24 21:56 1 TAB Ondansetron HCl 4 mg Q4HP PRN IV 12/20/24 14:00 Docusate Sodium 100 mg BIDPRN PRN PO 12/20/24 14:00 Acetaminophen 650 mg Q6HP PRN PO 12/20/24 14:00 Morphine Sulfate 2 mg Q4HPRN PRN IV 12/20/24 14:00 Nitroglycerin 0.4 mg Q5MINP PRN SL 12/20/24 14:00 Morphine Sulfate 2 mg Q30M PRN IV 12/20/24 14:00 Furosemide 40 mg BID PO 12/20/24 22:00 12/22/24 10:16 40 MG Lisinopril 20 mg DAILY PO 12/21/24 10:00 12/22/24 10:15 20 MG Thiamine HCl 100 mg DAILY PO 12/21/24 10:00 12/22/24 10:16 100 MG Ferrous Sulfate 325 mg DAILY PO 12/21/24 10:00 12/22/24 10:16 325 MG Folic Acid 1 mg DAILY PO 12/21/24 10:00 12/22/24 10:16 1 MG Magnesium Oxide 400 mg DAILY PO 12/21/24 10:00 12/22/24 10:15 400 MG Spironolactone 100 mg DAILY PO 12/21/24 10:00 12/22/24 10:15 100 MG Lactulose 30 ml Q6HR PO 12/21/24 18:00 12/22/24 05:53 30 ML Laboratory Results Laboratory Tests 12/21/24 06:11 Urinalysis Test 12/20/24 08:34 Urine Color Dark-yellow (Yellow) Urine Clarity Turbid (Clear) H Urine pH 5.5 (5.0-9.0) Urine Specific [place] 1.030 (1.001-1.035) Urine Protein 1+ (Negative) H Urine Ketones Trace (Negative) Urine Blood Negative /uL (Negative) Urine Nitrite Negative (Negative) Urine Bilirubin 1+ (Negative) Urine Urobilinogen 4 mg/dL (Negative) H Urine Leukocyte Esterase Trace /uL (Negative) Urine RBC 4 /hpf (0 - 3) Urine Microscopic WBC 10 /HPF (0-3) H Urine Squamous Epithelial Cells Few /hpf (<5) Urine Bacteria None seen /hpf (None Seen) Urine Hyaline Casts Many /lpf (0 - 2) Urine Granular Casts Few /lpf (0) Urine Mucus Few (None Seen) Urine Glucose Normal mg/dL (Normal) Microbiology Microbiology Date/Time Source Procedure Growth Status 12/21/24 10:10 Ascities Fluid Gram Stain - Final Resulted 12/21/24 10:10 Ascities Fluid Body Fluid Culture - Preliminary Resulted Labs and/or images reviewed: Labs reviewed by me, Image(s) reviewed by me Assessment/Plan Assessment/Plan Acute Abdominal pain Ascites: Status post removal of 8 L of fluid by radiologist, Elijah spironolactone, consult for GI Dr. 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
[2024-12-23 04:56] VITALS: BP 96/60; PULSE 108; RESP 18; TEMP 97.8; O2SAT 94
[2024-12-23 05:43] LABS: Hemoglobin 10.6 g/dL (13.5-17.5)
[2024-12-23 05:47] LABS: Hematocrit 30.3 % (41.0-53.0); Mean Corpuscular Hemoglobin 34.3 pg (28.0-32.0); Mean Corpuscular Hgb Conc. 34.9 g/dL (32.0-36.0); Mean Corpuscular Volume 98.3 fL (80.0-100.0); Platelet Count (auto) 189 10^3/uL (140-450); Red Blood Cells 3.09 10^6/uL (4.5-5.90); White Blood Cell 6.6 10^3/uL (4.4-10.8)
[2024-12-23 05:52] LABS: Basophils % (manual) 0 (0.0-2.0); Blast Cells 0; Metamyelocytes % 0; Myelocytes % 0; Promyelocytes % 0; Reactive Lymphocytes 0
[2024-12-23 06:33] LABS: Alanine Aminotransferase 25 U/L (7-40)
[2024-12-23 06:34] LABS: Albumin 2.5 g/dL (3.2-4.8); Alkaline Phosphatase 121 U/L (46-116); Anion Gap 7 (5-15); Aspartate Aminotransferase 73 U/L (13-40); BUN/Creatinine Ratio 17.6 (10.0-20.0); Bilirubin, Total 4.7 mg/dL (0.2-1.0); Blood Urea Nitrogen 16 mg/dL (9-23); Carbon Dioxide 23 mmol/L (20-31); Chloride 100 mmol/L (98-107); Glucose 102 mg/dL (74-106); Potassium 3.8 mmol/L (3.5-5.1); Sodium 130 mmol/L (136-145); Total Protein 5.6 g/dL (5.7-8.2)
[2024-12-23 06:49] LABS: Band Neutrophils % (manual) 1; Eosinophils % (manual) 3 (0-7); Lymphocytes % (manual) 16 (10.0-50.0); Monocytes % (manual) 8 (0-12)
[2024-12-23 06:50] LABS: Platelet Estimate Adequate
[2024-12-23 08:10] VITALS: PULSE 113; RESP 22; O2SAT 95
[2024-12-23 09:00] VITALS: BP 108/66; PULSE 113; RESP 22; TEMP 98.4; O2SAT 95
[2024-12-23] MEDS ORDERED: LACT10PA2 PO (11:03)
--- NOTE | 2024-12-23 11:09 | DVHDS2 ---
Discharge Summary Date of Admission Dec 20, 2024 at 13:46 Date of Discharge: Dec 23, 2024 Admitting Diagnosis Abdominal pain and distention Wounds: Paracentesis Labs/Diagnostic Data: Laboratory Results Test 12/23/24 05:03 12/21/24 10:10 12/21/24 06:11 12/20/24 08:42 White Blood Count 6.6 10^3/uL (4.4-10.8) Red Blood Count 3.09 10^6/uL (4.5-5.90) Hemoglobin 10.6 g/dL (13.5-17.5) Hematocrit 30.3 % (41.0-53.0) Mean Corpuscular Volume 98.3 fL (80.0-100.0) Mean Corpuscular Hemoglobin 34.3 pg (28.0-32.0) Mean Corpuscular Hemoglobin Concent 34.9 g/dL (32.0-36.0) Red Cell Distribution Width 16.0 % (11.8-14.3) Platelet Count 189 10^3/uL (140-450) Mean Platelet Volume 7.0 fL (6.9-10.8) Neutrophils (%) (Auto) % (37.0-80.0) Lymphocytes (%) (Auto) % (10.0-50.0) Monocytes (%) (Auto) % (0.0-12.0) Basophils (%) (Auto) % (0.0-2.0) Neutrophils # (Auto) 10 ^3/uL (1.6-8.6) Lymphocytes # (Auto) 10 ^3/uL (0.4-5.4) Monocytes # (Auto) 10 ^3/uL (0-1.3) Differential Total Cells Counted 100.0 (100) Neutrophils % (Manual) 72 (37.0-80.0) Band Neutrophils % (Manual) 1 Lymphocytes % (Manual) 16 (10.0-50.0) Monocytes % (Manual) 8 (0-12) Eosinophils % (Manual) 3 (0-7) Basophils % (Manual) 0 (0.0-2.0) Metamyelocytes % (manual) 0 Myelocytes % (Manual) 0 Promyelocytes % (Manual) 0 Blast Cells % (Manual) 0 Reactive Lymphocytes 0 Platelet Estimate Adequate Sodium Level 130 mmol/L (136-145) Potassium Level 3.8 mmol/L (3.5-5.1) Chloride Level 100 mmol/L (98-107) Carbon Dioxide Level 23 mmol/L (20-31) Anion Gap 7 (5-15) Blood Urea Nitrogen 16 mg/dL (9-23) Creatinine 0.91 mg/dL (0.700-1.30) Glomerular Filtration Rate Calc 95 mL/min (>90) BUN/Creatinine Ratio 17.6 (10.0-20.0) Serum Glucose 102 mg/dL (74-106) Calcium Level 8.0 mg/dL (8.7-10.4) Total Bilirubin 4.7 mg/dL (0.2-1.0) Aspartate Amino Transferase (AST) 73 U/L (13-40) Alanine Aminotransferase (ALT) 25 U/L (7-40) Alkaline Phosphatase 121 U/L (46-116) Ammonia 10 umol/L (11-32) Total Protein 5.6 g/dL (5.7-8.2) Albumin 2.5 g/dL (3.2-4.8) Body Fluid Source Peritoneal fluid Body Fluid pH 8.0 Body Fluid WBC (Manual) 230 CUMM (0-200) Body Fluid RBC (Manual) 70 CUMM (0-2000) Body Fluid Mononuclear Cells 80 % Body Fluid Polymorphonuclear Cells 20 % (0-25) Body Fluid Glucose 107 mg/dL (.) Body Fluid Total Protein 1.0 g/dL (.) Body Fluid Lactate Dehydrogenase 79 IU/L (.) Eosinophils (%) (Auto) 2.9 % (0.0-7.0) Eosinophils # (Auto) 0.2 10 ^3/uL (0-0.8) Basophils # (Auto) 0.1 10 ^3/uL (0-0.2) Nucleated Red Blood Cells 0.1 % Prothrombin Time 15.1 sec (9.3-11.8) Prothrombin Time INR 1.48 (0.9-1.15) Test 12/20/24 08:34 Urine Color Dark-yellow (Yellow) Urine Clarity Turbid (Clear) Urine pH 5.5 (5.0-9.0) Urine Specific [place] 1.030 (1.001-1.035) Urine Protein 1+ (Negative) Urine Ketones Trace (Negative) Urine Blood Negative /uL (Negative) Urine Nitrite Negative (Negative) Urine Bilirubin 1+ (Negative) Urine Urobilinogen 4 mg/dL (Negative) Urine Leukocyte Esterase Trace /uL (Negative) Urine RBC 4 /hpf (0 - 3) Urine Microscopic WBC 10 /HPF (0-3) Urine Squamous Epithelial Cells Few /hpf (<5) Urine Bacteria None seen /hpf (None Seen) Urine Hyaline Casts Many /lpf (0 - 2) Urine Granular Casts Few /lpf (0) Urine Mucus Few (None Seen) Urine Glucose Normal mg/dL (Normal) Other Laboratory Tests 12/23/24 05:03 Brief Hx & Hospital Course: 64-year-old male with a alcoholic cirrhosis and ascites came in from [place] admitted for abdominal pain and distention removed 8 L of fluid by radiologist started on Lasix spironolactone consult by GI Dr. Emily Vlilafana. Given lactulose for hyperammonemia. Jaundice bilirubin 5.1 Follow [place] low 2.7 given albumin transfusion being discharged home. Transmitted prescription for lactulose reviewed all other home medications. General condition very poor but stable.He will Follow up with his primary Dr Dr. Dean in [place] Consults/Reason for consult GI Radiologist Operations or Procedures Paracentesis Condition at Discharge: Fair Final Diagnosis/Problems List Acute Abdominal pain Ascites: Status post removal of 8 L of fluid by radiologist, Lasix spironolactone, consult for GI Dr. Emily Villafana Cirrhosis of liver Chronic current alcohol abuse: Counseling thiamine folic acid Hyperammonemia with ammonia 46: Lactulose Severe hypo Albuminemia with albumin 2.7: Albumin transfusion Chronic malnutrition Jaundice bilirubin 5.1 Hypertension: Lisinopril Discharge Disposition: Home Discharge Instruct/Medications Diet: Cardiac 2g Na,low cholest Activity: Light activity Follow Up/Referral: Resume all previous home medications Follow up with your primary Dr Dr. Dean in [place] Medications: Lactulose transmitted to pharmacy Reviewed all previous home meds 39 (Time Taken for discharge summary 39 minutes) Discharge Statement: "Patient was advised to return to the ER or call 911 if any headaches, dizziness, shortness of breath, chest pain, abdominal pain, bleeding, fevers, or worsening of medical condition. Patient was counseled about treatment plan, medications, possible side effects, patientverbalized understanding. All questions were answered to the best of my ability. This discharge took greater then 30 minutes in planning, reviewing documentation, counseling the patient, and discussing with other team members." ASSESSMENT ASSESSMENT Hospital Course Improved Assessment Acute Abdominal pain Ascites: Status post removal of 8 L of fluid by radiologist, Elijah spironolactone, consult for GI Dr. Emily Villafana Cirrhosis of liver Chronic current alcohol abuse: Counseling thiamine folic acid Hyperammonemia with ammonia 46: Lactulose Severe hypo Albuminemia with albumin 2.7: Albumin transfusion Chronic malnutrition Jaundice bilirubin 5.1 Hypertension: Lisinopril Date of Service: Dec 23, 2024 Billing Provider: SAMAN SONI MD Common Visit Codes: [id number] DISCH DAY >30min SAMAN SONI MD Dec 23, 2024 11:09
[2024-12-23 11:25] VITALS: BP 108/66; PULSE 113; RESP 22; TEMP 98.4; O2SAT 95
== END 2024-12-23 12:02 | disposition home or self-care (01) ==
LOC: ER 07:57 → OVERFLOW 13:46 → TELE-WESTW 12-21 04:15
PROVIDERS: ADMIT Family Medicine; ATTEND Family Medicine
PROC: 0W9G3ZX Drainage of Peritoneal Cavity, Percutaneous Approach, Diagnostic (ICD-10-PCS; principal; 2024-12-21)
DX: K74.60 Unspecified cirrhosis of liver (principal); E43 Unspecified severe protein-calorie malnutrition; N17.9 Acute kidney failure, unspecified; R18.8 Other ascites; E88.09 Other disorders of plasma-protein metabolism, not elsewhere classified; I10 Essential (primary) hypertension; F10.10 Alcohol abuse, uncomplicated; Z68.32 Body mass index [BMI] 32.0-32.9, adult; Z79.899 Other long term (current) drug therapy; Y90.9 Presence of alcohol in blood, level not specified
CPT/HCPCS: 36415; 49083; 76705; 76942; 80048; 80053; 81001; 82140; 83986; 85007; 85025; 85027; 85610; 87205; 89051; 93005; 96365; 99291; G0378; P9047

== ENCOUNTER → 2024-12-29 | Outpatient (CLI) | payer MEDICAID ==
[~2024-12-29] MED LIST: FERR325T20 PO; FOLI-119 PO; FURO40TA4 PO; LACT10PA2 PO; LISI20TA56 PO; MAGN400T40 PO; POTA-211 PO; SPIR100T4 PO; THIA100T10 PO
[2024-12-29] MEDS: ALBUMIN 25% 100 ML IV ONE (12:52)
--- NOTE | 2024-12-29 14:00 | DVH ---
US PARACENTESIS, HISTORY: ASCITES PROCEDURE: Informed consent was obtained. The patient was placed in supine position. A limited locali zation ultrasound of the abdomen was obtained, and the skin site over the largest pocket of fluid was marked and entry site was prepped with chlorhexidine which was allowed to dry and draped in the usua l sterile fashion. Time out was performed. Following administration of 1% lidocaine local anesthetic, a 5 [place] centesis needle catheter was percutaneously inserted into the peritoneal collection until fluid was aspirated. The catheter was advanced into the fluid collection and the needle removed. Abo ut 9800 cc of fluid was aspirated and specimen sent for appropriate cultures/cytology/cultures and cy tology. The catheter was then removed and a sterile dressing applied. 25 gm of albumin colloid infusi on was given IV. No immediate complication was identified. FINDINGS: Limited ultrasound imaging demonstrates moderate ascites. Aspirated fluid was clear and ser ous. IMPRESSION: US-guided paracentesis with 9.8L removed.
[2024-12-29 21:11] LABS: Body Fluid Red Blood Cells 40 CUMM (0-2000); Body Fluid White Blood Cells 110 CUMM (0-200)
[2024-12-29 21:12] LABS: Body Fluid Polymorphonuclear 9 % (0-25)
== END | disposition home or self-care (01) ==
LOC: XYW 12:35
PROVIDERS: ATTEND Internal Medicine Gastroenterology
DX: R18.8 Other ascites (principal); K74.60 Unspecified cirrhosis of liver; I10 Essential (primary) hypertension; Z79.899 Other long term (current) drug therapy; Z98.890 Other specified postprocedural states
CPT/HCPCS: 49083; 76705; 83986; 87205; 89051; C1729; P9047; 76942

== ENCOUNTER 2025-01-05 08:03 | Emergency (ER) | payer MEDICAID ==
[~2025-01-05] VITALS: Ht 177.8 cm; Wt 96.6 kg
--- NOTE | 2025-01-05 08:22 | ED.PDOC ---
GI ASSESSMENT HPI Comments 64Y M with PMHx HTN, liver cirrhosis, and ascites presents to ED for chief complaint abd distension. Pt was discharged from [facility] on 12/23/2024 for dx liver cirrhosis and had 8L of fluid removed from abdomen. Pt states he is compliant with meds that were prescribed after the discharge. Pt states he was formerly a heavy drinker and quit drinking approximately one year ago. No other symptoms reported. Time Seen by MD: 08:10 Primary Care Provider: JERSEY Reviewed Notes: Nurses Notes, Medications, Allergies Allergies: Coded Allergies: NO KNOWN ALLERGIES (Unverified , 12/20/24) Home Meds Active Scripts Lactulose (Lactulose) 10 Gm Julian, 10 GM PO BID, #120 PACK Prov:SAMAN SONI MD 12/23/24 Reported Medications Thiamine Hcl (VITAMIN B-1) 100 Mg Tb, 1 TAB PO DAILY 12/20/24 Folic Acid (Folic Acid) 1 Mg Tab, 1 TAB PO DAILY 12/20/24 Magnesium Oxide (MAGNESIUM OXIDE) 400 Mg Tab, 1 TAB PO DAILY 12/20/24 Potassium Chloride (Klor-Con 10) 10 Meq Tab, 1 TAB PO BID 12/20/24 Lisinopril (Lisinopril) 20 Mg Tab, 1 TAB PO DAILY 12/20/24 Spironolactone (Spironolactone) 100 Mg Tab, 1 TAB PO DAILY 12/20/24 Ferrous Sulfate (Ferosul) 325 Mg Tab, 1 TAB PO DAILY 12/20/24 Furosemide (Furosemide) 40 Mg Tab, 1 TAB PO BID 12/20/24 Information Source: Patient Mode of Arrival: Wheelchair Timing: Days Duration: Since onset Prehospital treatment: None Quality: None Vomitus: None Stool: Normal Severity: Moderate Recent: None Recent Hx of: Liver Disease Pain Location: None Modifying Factors: Nothing Associated sign and symptoms: Other Past Medical History PAST MEDICAL HISTORY: HTN, Liver Surgical History: Denies all surgeries Family History Family History: Reviewed,noncontributory to illness, Unknown Social History Smoker: Non-Smoker Alcohol: Denies ETOH Use, Sober Drugs: Denies Drug Use Lives In: Home Constitutional: denies: chills, diaphoresis, fatigue, fever, malaise, sweats, weakness, others EENTM: denies: blurred vision, double vision, ear bleeding, ear discharge, ear drainage, ear pain, ear ringing, eye pain, eye redness, hearing loss, mouth pain, mouth swelling, nasal discharge, nose bleeding, nose congestion, nose pain, photophobia, tearing, throat pain, throat swelling, voice changes, others Respiratory: denies: cough, hemoptysis, orthopnea, SOB at rest, shortness of breath, SOB with excertion, stridor, wheezing, others Cardiovascular: denies: chest pain, dizzy spells, diaphoresis, Dyspnea on exertion, edema, irregular heart beat, left arm pain, lightheadedness, palpitations, PND, syncope, others Gastrointestinal: reports: abdomen distended; denies: abdominal pain, blood streaked bowels, constipated, diarrhea, dysphagia, difficulty swallowing, hematemesis, melena, nausea, poor appetite, poor fluid intake, rectal bleeding, rectal pain, vomiting, others Genitourinary: denies: burning, dysuria, flank pain, frequency, hematuria, incontinence, penile discharge, penile sore, pain, testicle pain, testicle swelling, urgency, others Neurological: denies: dizziness, fainting, headache, left sided numbness, left sided weakness, numbness, paresthesia, pre-existing deficit, right sided numbness, right sided weakness, seizure, speech problems, tingling, tremors, weakness, others Musculoskeletal: denies: back pain, gout, joint pain, joint swelling, muscle pain, muscle stiffness, neck pain, others Integumetry: reports: change in color; denies: bruises, change in hair/nails, dryness, laceration, lesions, lumps, rash, wounds, others Allergic/Immunocompromised: denies: Difficulty Healing, Frequent Infections, Hives, Itching, others Hematologic/Lymphatic: denies: anemia, blood clots, easy bleeding, easy bruising, swollen glands, others Endocrine: denies: excessive hunger, excessive sweating, excessive thirst, excessive urination, flushing, intolerance to cold, intolerance to heat, unexplained weight gain, unexplained weight loss, others Psychiatric: denies: anxiety, bipolar disorder, depression, hopeless, panic disorder, schizophrenia, sleepless, suicidal, others All Other Systems: Reviewed and Negative Physical Exam General Appearance: No Apparent Distress, Normal HEENT: Normal ENT Inspection, Pharynx Normal, TMs Normal, Other (no scleral icterus) Neck: Full Range of Motion, Non-Tender, Normal, Normal Inspection Respiratory: Chest Non-Tender, Lungs Clear, No Accessory Muscle Use, No Respiratory Distress, Normal Breath Sounds Cardiovascular: No Edema, No JVD, No Murmur, No Gallop, Normal Peripheral Pulses, Regular Rate/Rhythm Breast Exam: Deferred Gastrointestinal: Distended, Non Tender, No Pulsatile Mass Genitalia: Deferred Pelvic: Deferred Rectal: Deferred Extremities: No calf tenderness, Normal capillary refill, Normal inspection, Normal range of motion, Non-tender, No pedal edema, Other (no asterixis) Musculoskeletal : Apperance: Normal Neurologic: Alert, spot facer II-XII nml as Tested, No Motor Deficits, Normal Affect, Normal Mood, No Sensory Deficits Cerebellar Function: Normal Reflexes: Normal Skin: Dry, Warm, Other (ashen color) Lymphatic: No Adenopathy Was a procedure done? Was a procedure done?: No GI differential Dx Differential Diagnosis: Other (liver cirrhosis, ascites, peritonitis) X-Ray, Labs, Meds, VS Vital Signs Date Time Temp Pulse Resp B/P (MAP) Pulse Ox O2 Delivery O2 Flow Rate FiO2 01/05/25 13:00 101 18 113/74 (87) 99 01/05/25 12:00 97.6 92 20 115/71 (86) 98 97.6 01/05/25 11:00 94 19 117/77 (90) 98 01/05/25 10:00 87 18 116/76 (89) 98 01/05/25 09:00 92 19 114/77 (89) 97 01/05/25 08:30 89 22 98 Room Air* 0 21 01/05/25 08:30 97.8 89 22 122/73 (89) 98 97.8 01/05/25 08:15 97.6 102 16 107/68 (81) 99 97.6 Lab Test 01/05/25 08:21 Range/Units White Blood Count 7.3 4.4-10.8 10^3/uL Red Blood Count 3.71 L 4.5-5.90 10^6/uL Hemoglobin 12.1 L 13.5-17.5 g/dL Hematocrit 35.7 L 41.0-53.0 % Mean Corpuscular Volume 96.1 80.0-100.0 fL Mean Corpuscular Hemoglobin 32.6 H 28.0-32.0 pg Mean Corpuscular Hemoglobin Concent 33.9 32.0-36.0 g/dL Red Cell Distribution Width 15.1 H 11.8-14.3 % Platelet Count 267 140-450 10^3/uL Mean Platelet Volume 6.9 6.9-10.8 fL Neutrophils (%) (Auto) 62.0 37.0-80.0 % Lymphocytes (%) (Auto) 18.4 10.0-50.0 % Monocytes (%) (Auto) 16.9 H 0.0-12.0 % Eosinophils (%) (Auto) 1.7 0.0-7.0 % Basophils (%) (Auto) 1.0 0.0-2.0 % Neutrophils # (Auto) 4.5 1.6-8.6 10 ^3/uL Lymphocytes # (Auto) 1.3 0.4-5.4 10 ^3/uL Monocytes # (Auto) 1.2 0-1.3 10 ^3/uL Eosinophils # (Auto) 0.1 0-0.8 10 ^3/uL Basophils # (Auto) 0.1 0-0.2 10 ^3/uL Nucleated Red Blood Cells 0.2 % Prothrombin Time 13.9 H 9.3-11.8 sec Prothrombin Time INR 1.35 H 0.9-1.15 Activated Partial Thromboplast Time 33.1 24.5-34.5 SEC Sodium Level 125 L 136-145 mmol/L Potassium Level 5.5 H 3.5-5.1 mmol/L Chloride Level 98 98-107 mmol/L Carbon Dioxide Level 21 20-31 mmol/L Anion Gap 6 5-15 Blood Urea Nitrogen 34 H 9-23 mg/dL Creatinine 1.54 H 0.700-1.30 mg/dL Glomerular Filtration Rate Calc 50 >90 mL/min BUN/Creatinine Ratio 22.1 H 10.0-20.0 Serum Glucose 95 74-106 mg/dL Calcium Level 8.4 L 8.7-10.4 mg/dL Total Bilirubin 4.1 H 0.2-1.0 mg/dL Aspartate Amino Transferase (AST) 77 H 13-40 U/L Alanine Aminotransferase (ALT) 31 7-40 U/L Alkaline Phosphatase 123 H 46-116 U/L Ammonia 11 11-32 umol/L Total Protein 6.7 5.7-8.2 g/dL Albumin 2.6 L 3.2-4.8 g/dL [place] [id number] Ph: [phone] DIAGNOSTIC IMAGING Diagnostic Imaging Report : [id number] Signed PATIENT: PASTOR Teja MCNEILL ACCT: [id number] UNIT: [id number] : 1960 LOC: ER ROOM / BED: / AGE / SEX: 64 / M ADM STATUS: REG ER SERVICE 0000 ORDERING PHYSICIAN: JESSICA PUTNAM MD PROCEDURE(s): ABDL - ABDOMEN LIMITED REASON: FLUID CHECK ORDER NUMBER(s): [id number], ACCESSION NUMBER(s): [id number] ULTRASOUND ABDOMEN limited, 4 QUADRANTS INDICATION: FLUID CHECK Evaluate for ascites. TECHNIQUE: The four quadrants of the abdomen were scanned in mccain-scale to assess for the presence of ascites. No solid organ assessment was performed. FINDINGS/IMPRESSIONS: Moderate ascites noted in all 4 quadrants of the abdomen. HS:Y ATED BY: NATIVIDAD ALFORD MD DICTATED DATE/TIME: 01/05/251122 SIGNED BY: NATIVIDAD ALFORD MD SIGNED DATE/TIME: 01/05/25 112 CC: Time of 1ST Reevaluation: 08:40 Reevaluation 1ST: Unchanged Time of 2ND Reevaluation: 14:26 Reevaluation 2ND: Improved Patient Education/Counseling: Diagnosis, Treatment Family Education/Counseling: No Family Present Additional Information Previous visit documents reviewed: [facility] discharge 12/23/2024 The following tests were ordered, and results were reviewed by me: CBC, CMP, Ammonia, PTPTT, abd limited u/s Additional Information was gathered from interviewing the following independent historians: None I reviewed and agreed with the following test results read by other providers: abd limited u/s I discussed treatment and results with medical personnel and: Patient pt is still waiting for paracentesis. i checked with US. he is next. pt was just admitted and worked up. he does not have any new symptoms and just needs paracentesis. once this is done, he will be stable for discharge IR RN knows pt well and reports that pt usually gets 9+ L removed. this time he removed 10L without problems. pt's BP tolerated the volume removal. pt feels much better and wants to go home Departure 1 Departure Time of Disposition: 14:27 Impression: Primary Impression: Cirrhosis of liver with ascites Qualified Codes: K70.31 - Alcoholic cirrhosis of liver with ascites Disposition: 01 HOME / SELF CARE / HOMELESS Condition: Good Discharged With: Self Critical Care Note Critical Care Time?: No Stability Stability form required: No Heart Score Heart Score: Heart Score Response (Comments) Value History N/A 0 EKG N/A 0 Age N/A 0 Risk Factors N/A 0 Troponin N/A 0 Total 0 I personally scribed for JESSICA PUTNAM MD ([employer]) on 01/05/25 at 08:21. Electronically submitted by Elin Kimble ([email or web address]). I personally scribed for JESSICA PUTNAM MD ([email or web address]) on 01/05/25 at 11:49. Electronically submitted by Elin Kimble ([email or web address]). JESSICA PUTNAM MD Jan 05, 2025 08:21
[2025-01-05 08:30] VITALS: PULSE 89; RESP 22; O2SAT 98
[2025-01-05 08:36] LABS: Basophils # (auto) 0.1 10 ^3/uL (0-0.2); Eosinophils # (auto) 0.1 10 ^3/uL (0-0.8); Eosinophils % (auto) 1.7 % (0.0-7.0); Hematocrit 35.7 % (41.0-53.0); Hemoglobin 12.1 g/dL (13.5-17.5); Lymphocytes # (auto) 1.3 10 ^3/uL (0.4-5.4); Lymphocytes % (auto) 18.4 % (10.0-50.0); Mean Corpuscular Hemoglobin 32.6 pg (28.0-32.0); Mean Corpuscular Hgb Conc. 33.9 g/dL (32.0-36.0); Mean Corpuscular Volume 96.1 fL (80.0-100.0); Monocytes # (auto) 1.2 10 ^3/uL (0-1.3); Monocytes % (auto) 16.9 % (0.0-12.0); Neutrophils # (auto) 4.5 10 ^3/uL (1.6-8.6); Nucleated Red Blood Cells % 0.2 %; Platelet Count (auto) 267 10^3/uL (140-450); Red Blood Cells 3.71 10^6/uL (4.5-5.90); Red Cell Distribution Width 15.1 % (11.8-14.3); White Blood Cell 7.3 10^3/uL (4.4-10.8)
[2025-01-05 08:50] LABS: INR 1.35 (0.9-1.15); Partial Thromboplastin Time 33.1 SEC (24.5-34.5); Prothrombin Time 13.9 sec (9.3-11.8)
[2025-01-05 08:53] LABS: Alanine Aminotransferase 31 U/L (7-40); Anion Gap 6 (5-15); BUN/Creatinine Ratio 22.1 (10.0-20.0); Carbon Dioxide 21 mmol/L (20-31); Glucose 95 mg/dL (74-106); Sodium 125 mmol/L (136-145); Total Protein 6.7 g/dL (5.7-8.2)
[2025-01-05 08:54] LABS: Albumin 2.6 g/dL (3.2-4.8); Alkaline Phosphatase 123 U/L (46-116); Aspartate Aminotransferase 77 U/L (13-40); Bilirubin, Total 4.1 mg/dL (0.2-1.0); Blood Urea Nitrogen 34 mg/dL (9-23); Calcium 8.4 mg/dL (8.7-10.4); Chloride 98 mmol/L (98-107); Potassium 5.5 mmol/L (3.5-5.1)
--- NOTE | 2025-01-05 11:25 | DVH ---
ULTRASOUND ABDOMEN limited, 4 QUADRANTS INDICATION: FLUID CHECK Evaluate for ascites. TECHNIQUE: The four quadrants of the abdomen were scanned in mccain-scale to assess for the presence of ascites. N o solid organ assessment was performed. FINDINGS/IMPRESSIONS: Moderate ascites noted in all 4 quadrants of the abdomen. HS:Y
[2025-01-05 12:00] VITALS: TEMP 97.6
[2025-01-05 15:00] VITALS: BP 109/58; PULSE 94; RESP 17; O2SAT 98
--- NOTE | 2025-01-05 15:03 | DVH ---
US PARACENTESIS, HISTORY: ASCITES PROCEDURE: Informed consent was obtained. The patient was placed in supine position. A limited locali zation ultrasound of the abdomen was obtained, and the skin site over the largest pocket of fluid was marked and entry site was prepped with chlorhexidine which was allowed to dry and draped in the usua l sterile fashion. Time out was performed. Following administration of 1% lidocaine local anesthetic, a 5 Trinidadian centesis needle catheter was percutaneously inserted into the peritoneal collection until fluid was aspirated. The catheter was advanced into the fluid collection [place] [address] cc of fluid was aspirated . The catheter was then removed and a sterile dressing applied. N o immediate complication was identified. FINDINGS: Limited ultrasound imaging demonstrates moderate to large ascites. Aspirated fluid was dania r and serous. IMPRESSION: US-guided paracentesis with 10L removed.
== END 2025-01-05 15:18 | disposition home or self-care (01) ==
LOC: ER 08:03
DX: K74.60 Unspecified cirrhosis of liver (principal); R18.8 Other ascites; I10 Essential (primary) hypertension; Z79.899 Other long term (current) drug therapy
CPT/HCPCS: 36415; 49083; 76705; 76942; 80053; 82140; 85025; 85610; 85730

== ENCOUNTER 2025-01-11 08:08 | Inpatient (IN) | payer MEDICAID ==
[~2025-01-11] VITALS: Ht 177.8 cm; Wt 98.0 kg
--- NOTE | 2025-01-11 08:30 | ECG ---
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
--- NOTE | 2025-01-11 08:32 | ED.PDOC ---
GI ASSESSMENT HPI Comments 64 y/o M, with PMHX of HTN and liver disease presents to the ED for CC of abdominal pain. Patient states, that he has been experiencing chronic abdominal pain and distension x days. Patient was last seen, at [facility] on 01/05/25 for cirrhosis of liver, with ascites. Patient denies nausea, vomiting, diarrhea, constipation, faintness, or weakness. No other symptoms or modifying factors at this time. Chief Complaint: Abdominal Pain Time Seen by MD: 08:28 Primary Care Provider: unknown Reviewed Notes: Nurses Notes, Medications, Allergies Allergies: Coded Allergies: NO KNOWN ALLERGIES (Unverified , 12/20/24) Home Meds Active Scripts Lactulose (Lactulose) 10 Gm Julian, 10 GM PO BID, #120 PACK Prov:SAMAN SONI MD 12/23/24 Reported Medications Nifedipine (Nifedipine Er) 30 Mg Tab, 1 TAB PO DAILY 01/11/25 Thiamine Hcl (VITAMIN B-1) 100 Mg Tb, 1 TAB PO DAILY 12/20/24 Folic Acid (Folic Acid) 1 Mg Tab, 1 TAB PO DAILY 12/20/24 Magnesium Oxide (MAGNESIUM OXIDE) 400 Mg Tab, 1 TAB PO DAILY 12/20/24 Potassium Chloride (Klor-Con 10) 10 Meq Tab, 1 TAB PO BID 12/20/24 Lisinopril (Lisinopril) 20 Mg Tab, 1 TAB PO DAILY 12/20/24 Spironolactone (Spironolactone) 100 Mg Tab, 1 TAB PO DAILY 12/20/24 Ferrous Sulfate (Ferosul) 325 Mg Tab, 1 TAB PO DAILY 12/20/24 Furosemide (Furosemide) 40 Mg Tab, 1 TAB PO BID 12/20/24 Information Source: Patient, Relative Mode of Arrival: Wheelchair Timing: Days Duration: Since onset Prehospital treatment: None Quality: None Vomitus: None Stool: Normal Severity: Moderate Recent: None Recent Hx of: None Pain Location: Diffuse Modifying Factors: Nothing Associated sign and symptoms: Abdominal Pain Past Medical History PAST MEDICAL HISTORY: HTN, Liver Surgical History: Denies all surgeries Family History Family History: Reviewed,noncontributory to illness, Unknown Social History Smoker: Non-Smoker Alcohol: Denies ETOH Use, Sober Drugs: Denies Drug Use Lives In: Home Constitutional: denies: chills, diaphoresis, fatigue, fever, malaise, sweats, weakness, others EENTM: denies: blurred vision, double vision, ear bleeding, ear discharge, ear drainage, ear pain, ear ringing, eye pain, eye redness, hearing loss, mouth pain, mouth swelling, nasal discharge, nose bleeding, nose congestion, nose pain, photophobia, tearing, throat pain, throat swelling, voice changes, others Respiratory: denies: cough, hemoptysis, orthopnea, SOB at rest, shortness of breath, SOB with excertion, stridor, wheezing, others Cardiovascular: denies: chest pain, dizzy spells, diaphoresis, Dyspnea on exert ion, edema, irregular heart beat, left arm pain, lightheadedness, palpitations, PND, syncope, others Gastrointestinal: reports: abdomen distended, abdominal pain; denies: blood streaked bowels, constipated, diarrhea, dysphagia, difficulty swallowing, hematemesis, melena, nausea, poor appetite, poor fluid intake, rectal bleeding, rectal pain, vomiting, others Genitourinary: denies: burning, dysuria, flank pain, frequency, hematuria, incontinence, penile discharge, penile sore, pain, testicle pain, testicle swelling, urgency, others Neurological: denies: dizziness, fainting, headache, left sided numbness, left sided weakness, numbness, paresthesia, pre-existing deficit, right sided numbness, right sided weakness, seizure, speech problems, tingling, tremors, weakness, others Musculoskeletal: denies: back pain, gout, joint pain, joint swelling, muscle pain, muscle stiffness, neck pain, others Integumetry: denies: bruises, change in color, change in hair/nails, dryness, laceration, lesions, lumps, rash, wounds, others Allergic/Immunocompromised: denies: Difficulty Healing, Frequent Infections, Hives, Itching, others Hematologic/Lymphatic: denies: anemia, blood clots, easy bleeding, easy bruising, swollen glands, others Endocrine: denies: excessive hunger, excessive sweating, excessive thirst, excessive urination, flushing, intolerance to cold, intolerance to heat, unexplained weight gain, unexplained weight loss, others Psychiatric: denies: anxiety, bipolar disorder, depression, hopeless, panic disorder, schizophrenia, sleepless, suicidal, others All Other Systems: Reviewed and Negative Physical Exam General Appearance: No Apparent Distress, Normal HEENT: Normal ENT Inspection, Pharynx Normal Neck: Full Range of Motion, Non-Tender, Normal, Normal Inspection Respiratory: Chest Non-Tender, Lungs Clear, No Accessory Muscle Use, No Respiratory Distress, Normal Breath Sounds Cardiovascular: No Edema, No Murmur, No Gallop, Normal Peripheral Pulses, Regular Rate/Rhythm Breast Exam: Deferred Gastrointestinal: Distended, No Organomegaly, No Pulsatile Mass, Normal Bowel Sounds, Soft, Tenderness (MILD) Genitalia: Deferred Pelvic: Deferred Rectal: Deferred Musculoskeletal : Apperance: Normal Neurologic: Alert, No Motor Deficits, Normal Affect, Normal Mood, No Sensory Deficits Cerebellar Function: Normal Skin: Dry, Normal Color, Warm Lymphatic: No Adenopathy EKG EKG : Pulse Rate (adult): 95 [place]: Normal Cardiac Rhythm: NSR Block: None Hypertrophy: None ST: Normal Was a procedure done? Was a procedure done?: No GI differential Dx Differential Diagnosis: Gastritis/PUD, Gastroenteritis, Urinary Obstruction, Electrolyte Imbalance, Food Poisoning, Bacterial, Viral X-Ray, Labs, Meds, VS Vital Signs Date Time Temp Pulse Resp B/P (MAP) Pulse Ox O2 Delivery O2 Flow Rate FiO2 01/11/25 12:00 97.7 92 16 117/52 (73) 98 97.7 01/11/25 10:00 96 16 117/68 (84) 98 01/11/25 08:40 96 20 95 Room Air* 0 21 01/11/25 08:40 97.6 96 20 108/64 (79) 95 97.6 01/11/25 08:32 95 01/11/25 08:23 95 01/11/25 08:12 98.4 97 18 114/70 (85) 100 98.4 Lab Test 01/11/25 09:06 Range/Units White Blood Count 5.1 # 4.4-10.8 10^3/uL Red Blood Count 3.51 L 4.5-5.90 10^6/uL Hemoglobin 11.6 L 13.5-17.5 g/dL Hematocrit 33.1 L 41.0-53.0 % Mean Corpuscular Volume 94.2 80.0-100.0 fL Mean Corpuscular Hemoglobin 33.2 H 28.0-32.0 pg Mean Corpuscular Hemoglobin Concent 35.2 32.0-36.0 g/dL Red Cell Distribution Width 15.0 H 11.8-14.3 % Platelet Count 259 140-450 10^3/uL Mean Platelet Volume 7.1 6.9-10.8 fL Neutrophils (%) (Auto) 62.5 37.0-80.0 % Lymphocytes (%) (Auto) 21.9 10.0-50.0 % Monocytes (%) (Auto) 13.8 H 0.0-12.0 % Eosinophils (%) (Auto) 1.3 0.0-7.0 % Basophils (%) (Auto) 0.5 0.0-2.0 % Neutrophils # (Auto) 3.2 1.6-8.6 10 ^3/uL Lymphocytes # (Auto) 1.1 0.4-5.4 10 ^3/uL Monocytes # (Auto) 0.7 0-1.3 10 ^3/uL Eosinophils # (Auto) 0.1 0-0.8 10 ^3/uL Basophils # (Auto) 0 0-0.2 10 ^3/uL Nucleated Red Blood Cells 0.1 % Prothrombin Time 14.3 H 9.3-11.8 sec Prothrombin Time INR 1.39 H 0.9-1.15 Activated Partial Thromboplast Time 35.9 H 24.5-34.5 SEC Sodium Level 119 #*L 136-145 mmol/L Potassium Level 4.7 3.5-5.1 mmol/L Chloride Level 89 L 98-107 mmol/L Carbon Dioxide Level 23 20-31 mmol/L Anion Gap 7 5-15 Blood Urea Nitrogen 34 H 9-23 mg/dL Creatinine 1.82 H 0.700-1.30 mg/dL Glomerular Filtration Rate Calc 41 >90 mL/min BUN/Creatinine Ratio 18.7 10.0-20.0 Serum Glucose 102 74-106 mg/dL Calcium Level 7.8 L 8.7-10.4 mg/dL Total Bilirubin 2.8 H 0.2-1.0 mg/dL Aspartate Amino Transferase (AST) 105 H 13-40 U/L Alanine Aminotransferase (ALT) 46 H 7-40 U/L Alkaline Phosphatase 216 H 46-116 U/L Total Protein 6.1 5.7-8.2 g/dL Albumin 2.4 L 3.2-4.8 g/dL [place] [address] Ph: [phone] DIAGNOSTIC IMAGING Diagnostic Imaging Report : [id number] Signed PATIENT: PASTOR Teja MCNEILL ACCT: [id number] UNIT: [id number] : 1960 LOC: ER ROOM / BED: / AGE / SEX: 64 / M ADM STATUS: REG ER SERVICE 0845 ORDERING PHYSICIAN: NANCY ROCHA MD PROCEDURE(s): ABDL - ABDOMEN LIMITED REASON: fing site for para ORDER NUMBER(s): [id number], ACCESSION NUMBER(s): [id number] ULTRASOUND ABDOMEN LIMITED INDICATION: [facility] site for para TECHNIQUE: Ultrasound of the 4 quadrants of the abdominal cavity. COMPARISON: US ABDOMEN LIMITED on DOS: 01/05/25, US ABDOMEN LIMITED on DOS: 12/20/24 FINDINGS: There is moderate amount of ascites seen in all 4 quadrants of the abdomen. IMPRESSION: 1. Moderate amount of ascites. 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 DICTATED BY: DON PEÑA MD DICTATED DATE/TIME: 01/11/25 1137 SIGNED BY: DON PEÑA MD SIGNED DATE/TIME: 01/11/25 1112 CC: [place] [address] Ph: [phone] DIAGNOSTIC IMAGING Diagnostic Imaging Report : [id number] Signed PATIENT: PASTOR Teja MCNEILL ACCT: [id number] UNIT: [id number] : 1960 LOC: ER ROOM / BED: / AGE / SEX: 64 / M ADM STATUS: REG ER SERVICE 0912 ORDERING PHYSICIAN: NANCY ROCHA MD PROCEDURE(s): PARAC - PARACENTESIS REASON: ASCITES ORDER NUMBER(s): [id number], ACCESSION NUMBER(s): [id number] PROCEDURE: ULTRASOUND GUIDED PARACENTESIS HISTORY: 64 Male requiring paracentesis. PERFORMING DOCTOR: DR. ROCHA TECHNIQUE: Ultrasound images were obtained for paracentesis performed by Dr. Rocha. Approximately [address] of straw-colored fluid was removed from the right lower quadrant. ATED BY: JENNIFER ACKERMAN MD DICTATED DATE/TIME: 01/11/25 1138 SIGNED BY: JENNIFER ACKERMAN MD SIGNED DATE/TIME: 01/11/25 1138 CC: Time of 1ST Reevaluation: 08:58 Reevaluation 1ST: Unchanged Patient Education/Counseling: Diagnosis, Treatment Family Education/Counseling: Diagnosis, Treatment Critical Care Note Critical Care Time?: No Stability Stability form required: No Heart Score Heart Score: Heart Score Response (Comments) Value History N/A 0 EKG N/A 0 Age N/A 0 Risk Factors N/A 0 Troponin N/A 0 Total 0 I personally scribed for NANCY ROCHA MD ([email or web address]) on 01/11/25 at 08:32. Electronically submitted by Lindsey Bhatia ([email or web address]). I personally scribed for NANCY ROCHA MD ([email or web address]) on 01/11/25 at 08:35. Electronically submitted by Lindsey Bhatia ([email or web address]). I personally scribed for NANCY ROCHA MD ([email or web address]) on 01/11/25 at 08:42. Electronically submitted by Lindsey Bhatia ([email or web address]). I personally scribed for NANCY ROCHA MD ([email or web address]) on 01/11/25 at 08:46. Electronically submitted by Lindsey Bhatia ([email or web address]). I personally scribed for NANCY ROCHA MD ([email or web address]) on 01/11/25 at 12:36. Electronically submitted by Lindsey Bhatia ([email or web address]). I personally scribed for NANCY ROCHA MD ([email or web address]) on 01/11/25 at 12:37. Electronically submitted by Lidnsey Bhatia ([email or web address]). NANCY ROCHA MD Jan 11, 2025 08:32
[2025-01-11 08:40] VITALS: PULSE 96; RESP 20; O2SAT 95
[2025-01-11 09:34] LABS: Basophils # (auto) 0 10 ^3/uL (0-0.2); Basophils % (auto) 0.5 % (0.0-2.0); Eosinophils # (auto) 0.1 10 ^3/uL (0-0.8); Eosinophils % (auto) 1.3 % (0.0-7.0); Hematocrit 33.1 % (41.0-53.0); Hemoglobin 11.6 g/dL (13.5-17.5); Lymphocytes # (auto) 1.1 10 ^3/uL (0.4-5.4); Lymphocytes % (auto) 21.9 % (10.0-50.0); Mean Corpuscular Hemoglobin 33.2 pg (28.0-32.0); Mean Corpuscular Hgb Conc. 35.2 g/dL (32.0-36.0); Mean Corpuscular Volume 94.2 fL (80.0-100.0); Monocytes # (auto) 0.7 10 ^3/uL (0-1.3); Monocytes % (auto) 13.8 % (0.0-12.0); Neutrophils # (auto) 3.2 10 ^3/uL (1.6-8.6); Neutrophils % (auto) 62.5 % (37.0-80.0); Nucleated Red Blood Cells % 0.1 %; Platelet Count (auto) 259 10^3/uL (140-450); Red Blood Cells 3.51 10^6/uL (4.5-5.90); White Blood Cell 5.1 10^3/uL (4.4-10.8)
[2025-01-11 09:43] LABS: Anion Gap 7 (5-15); BUN/Creatinine Ratio 18.7 (10.0-20.0); Carbon Dioxide 23 mmol/L (20-31); Glucose 102 mg/dL (74-106); Potassium 4.7 mmol/L (3.5-5.1); Total Protein 6.1 g/dL (5.7-8.2)
[2025-01-11 10:10] LABS: Alanine Aminotransferase 46 U/L (7-40); Albumin 2.4 g/dL (3.2-4.8); Alkaline Phosphatase 216 U/L (46-116); Aspartate Aminotransferase 105 U/L (13-40); Bilirubin, Total 2.8 mg/dL (0.2-1.0); Blood Urea Nitrogen 34 mg/dL (9-23); Calcium 7.8 mg/dL (8.7-10.4); Chloride 89 mmol/L (98-107); Sodium 119 mmol/L (136-145)
[2025-01-11 10:19] LABS: INR 1.39 (0.9-1.15); Partial Thromboplastin Time 35.9 SEC (24.5-34.5); Prothrombin Time 14.3 sec (9.3-11.8)
--- NOTE | 2025-01-11 11:12 | DVH ---
ULTRASOUND ABDOMEN LIMITED INDICATION: fing site for para TECHNIQUE: Ultrasound of the 4 quadrants of the abdominal cavity. COMPARISON: US ABDOMEN LIMITED on DOS: 01/05/25, US ABDOMEN LIMITED on DOS: 12/20/24 FINDINGS: There is moderate amount of ascites seen in all 4 quadrants of the abdomen. IMPRESSION: 1. Moderate amount of ascites. HS:Y L ALLEN
--- NOTE | 2025-01-11 11:40 | DVH ---
PROCEDURE: ULTRASOUND GUIDED PARACENTESIS HISTORY: 64 Male requiring paracentesis. PERFORMING DOCTOR: DR. ROCHA TECHNIQUE: Ultrasound images were obtained for paracentesis performed by Dr. Rocha. Approximately [address] of str aw-colored fluid was removed from the right lower quadrant.
[2025-01-11] MEDS ORDERED: NIFE1TAB31 PO (12:26)
[2025-01-11] MEDS ORDERED: ONDANSETRON HCL 4 MG/2 ML VIAL IV PRN (12:30)
[2025-01-11] MEDS ORDERED: ACETAMINOPHEN 325 MG TAB PO PRN (12:30)
--- NOTE | 2025-01-11 12:37 | DVHHP2 ---
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 Patient was here last week on January 05 and had about 10 L drained. Patient reports that he quit drinking, does not smoke, and does not use illicit drugs. Patient denies chest pain, shortness of breath, fever, chills, recent trauma or injury, nausea, tingling, numbness, paresthesia, vomiting, or diarrhea. Cardiovascular: HTN Hepatobiliary: Cirrhosis, Other (Ascites) Past Surgical History: Other (Paracentesis) Smoke: No ALCOHOL: none Drugs: None (i) Lives: Alone Domestic Violence: Neg Review of Systems Gastrointestinal: Abdominal Pain, Other (Distention) Allergies: Coded Allergies: NO KNOWN ALLERGIES (Unverified , 12/20/24) Medications Current Medications Medications Dose Ordered Sig/Gaston Route Start Time Stop Time Status Last Admin Dose Admin Acetaminophen/ Hydrocodone Bitart 1 tab Q4HP PRN PO 01/11/25 12:30 UNV Ondansetron HCl 4 mg Q4HP PRN IV 01/11/25 12:30 UNV Acetaminophen 650 mg Q6HP PRN PO 01/11/25 12:30 UNV Furosemide 40 mg BIDD IV 01/11/25 18:00 UNV Exam Vital Signs Vital Signs Date Time Temp Pulse Resp B/P (MAP) Pulse Ox O2 Delivery O2 Flow Rate FiO2 01/11/25 12:00 97.7 92 16 117/52 (73) 98 97.7 01/11/25 08:40 Room Air* 0 21 General Appearance: Alert, Oriented X3, Cooperative, No acute distress HEENT: Atraumatic, PERRLA, EOMI, Mucous membr. moist/pink Respiratory: Clear to auscultation, Normal air movement Cardiovascular: Normal S1, Normal S2, No murmurs Abdominal: Other (Distended) Extremities: No tenderness/swelling Skin: No significant lesion Neuro: Normal speech, Normal tone, Sensation intact Psych/Mental Status: Mental status NL, Mood NL Labs/Xrays Labs Test 01/11/25 09:06 Range/Units White Blood Count 5.1 # 4.4-10.8 10^3/uL Red Blood Count 3.51 L 4.5-5.90 10^6/uL Hemoglobin 11.6 L 13.5-17.5 g/dL Hematocrit 33.1 L 41.0-53.0 % Mean Corpuscular Volume 94.2 80.0-100.0 fL Mean Corpuscular Hemoglobin 33.2 H 28.0-32.0 pg Mean Corpuscular Hemoglobin Concent 35.2 32.0-36.0 g/dL Red Cell Distribution Width 15.0 H 11.8-14.3 % Platelet Count 259 140-450 10^3/uL Mean Platelet Volume 7.1 6.9-10.8 fL Neutrophils (%) (Auto) 62.5 37.0-80.0 % Lymphocytes (%) (Auto) 21.9 10.0-50.0 % Monocytes (%) (Auto) 13.8 H 0.0-12.0 % Eosinophils (%) (Auto) 1.3 0.0-7.0 % Basophils (%) (Auto) 0.5 0.0-2.0 % Neutrophils # (Auto) 3.2 1.6-8.6 10 ^3/uL Lymphocytes # (Auto) 1.1 0.4-5.4 10 ^3/uL Monocytes # (Auto) 0.7 0-1.3 10 ^3/uL Eosinophils # (Auto) 0.1 0-0.8 10 ^3/uL Basophils # (Auto) 0 0-0.2 10 ^3/uL Nucleated Red Blood Cells 0.1 % Prothrombin Time 14.3 H 9.3-11.8 sec Prothrombin Time INR 1.39 H 0.9-1.15 Activated Partial Thromboplast Time 35.9 H 24.5-34.5 SEC Sodium Level 119 #*L 136-145 mmol/L Potassium Level 4.7 3.5-5.1 mmol/L Chloride Level 89 L 98-107 mmol/L Carbon Dioxide Level 23 20-31 mmol/L Anion Gap 7 5-15 Blood Urea Nitrogen 34 H 9-23 mg/dL Creatinine 1.82 H 0.700-1.30 mg/dL Glomerular Filtration Rate Calc 41 >90 mL/min BUN/Creatinine Ratio 18.7 10.0-20.0 Serum Glucose 102 74-106 mg/dL Calcium Level 7.8 L 8.7-10.4 mg/dL Total Bilirubin 2.8 H 0.2-1.0 mg/dL Aspartate Amino Transferase (AST) 105 H 13-40 U/L Alanine Aminotransferase (ALT) 46 H 7-40 U/L Alkaline Phosphatase 216 H 46-116 U/L Total Protein 6.1 5.7-8.2 g/dL Albumin 2.4 L 3.2-4.8 g/dL PROCEDURE: ULTRASOUND GUIDED PARACENTESIS HISTORY: 64 Male requiring paracentesis. PERFORMING DOCTOR: DR. ROCHA TECHNIQUE: Ultrasound images were obtained for paracentesis performed by Dr. Rocha. Approximately [address] of straw-colored fluid was removed from the right lower quadrant. ULTRASOUND ABDOMEN LIMITED INDICATION: fing site for para TECHNIQUE: Ultrasound of the 4 quadrants of the abdominal cavity. COMPARISON: US ABDOMEN LIMITED on DOS: 01/05/25, US ABDOMEN LIMITED on DOS: 12/20/24 FINDINGS: There is moderate amount of ascites seen in all 4 quadrants of the abdomen. IMPRESSION: 1. Moderate amount of ascites. Assessment/Plan Assessment/Plan Assessment Abdominal distention secondary to ascites Azotemia Hyperbilirubinemia Transaminitis Mild anemia Severe Hyponatremia History of hypertension History of liver cirrhosis Plan Admit to med surge Antiemetics Pain Management Paracentesis Empiric IV antibiotics-ceftriaxone Diuretics Home medications reconciled Discussed plan of care with patient and nurse DVT prophylaxis-SCDs PUD prophylaxis-Protonix Plan discussed with: Patient My Orders Orders - MAURICIO TEJEDA [employer] DIRECT[employer] Procedure Category Date Status Time Admit ADMIT 01/11/25 Transmitted 12:20 Allergies SUKHDEV 01/11/25 In Process 12:20 Code Status CODE 01/11/25 Transmitted 12:20 Hydrocodone-Acet PHA 01/11/25 Logged 5/325mg Tab (Fonda 12:30 Ondansetron Hcl PHA 01/11/25 Logged (Zofran) 12:30 Complete Blood Count LAB 01/12/25 Verified 04:00 Comprehensive LAB 01/12/25 Verified Metabolic Panel 04:00 Cardiac DIET 01/11/25 Transmitted Diet-2gna,Lofat,Lochol Lunch Acetaminophen Tablet PHA 01/11/25 Logged (Tylenol Tablet) 12:30 Sequential SUKHDEV 01/11/25 In Process Compression Device Furosemide Injection PHA 01/11/25 Logged (Lasix Injection) 18:00 Potassium Er Tablet PHA 01/11/25 Verified (Klor-Con Tablet) 22:00 Thiamine Tab PHA 01/12/25 Verified 10:00 (Nf) Ferrous Sulfate PHA 01/12/25 Verified (Ferosul) 10:00 (Nf) Folic Acid PHA 01/12/25 Verified 10:00 (Nf) Magnesium Oxide PHA 01/12/25 Verified 10:00 (Nf) Spironolactone PHA 01/12/25 Verified 10:00 Date of Service: Jan 11, 2025 Billing Provider: MAURICIO TEJEDA Common Visit Codes: [id number] INP/OBS CARE (HIGH) MAURICIO TEJEDA Jan 11, 2025 12:37
[2025-01-11] MEDS: ALBUMIN 25% 50 ML IV ONE (12:59)
[2025-01-11] MEDS: cefTRIAXone 1GM/50ML D5W 50 ML IV SCH (13:30)
[2025-01-11 16:06] VITALS: BP 104/60; PULSE 103; RESP 17; TEMP 97.8; O2SAT 97
[2025-01-11] MEDS: FUROSEMIDE 40 MG/4 ML VIAL IV SCH (17:21)
[2025-01-11 21:00] VITALS: BP 104/61; PULSE 102; RESP 17; TEMP 97.9; O2SAT 98
[2025-01-11] MEDS: POTASSIUM CHL 10 Meq TABLET PO SCH (21:33)
[2025-01-12] VITALS (7 sets, daily range): BP systolic 103–119; BP diastolic 54–73; PULSE 82–101; RESP 16–17; TEMP 97.5–98; O2SAT 93–99
[2025-01-12] MEDS: HYDROcodone-ACET 5/325MG TAB PO PRN (03:09)
[2025-01-12 06:28] LABS: Basophils # (auto) 0 10 ^3/uL (0-0.2); Basophils % (auto) 0.7 % (0.0-2.0); Eosinophils # (auto) 0.1 10 ^3/uL (0-0.8); Eosinophils % (auto) 1.7 % (0.0-7.0); Hematocrit 29.3 % (41.0-53.0); Hemoglobin 10.4 g/dL (13.5-17.5); Lymphocytes # (auto) 1.4 10 ^3/uL (0.4-5.4); Lymphocytes % (auto) 20.5 % (10.0-50.0); Mean Corpuscular Hemoglobin 33.1 pg (28.0-32.0); Mean Corpuscular Hgb Conc. 35.4 g/dL (32.0-36.0); Mean Corpuscular Volume 93.3 fL (80.0-100.0); Monocytes # (auto) 1.1 10 ^3/uL (0-1.3); Monocytes % (auto) 16.7 % (0.0-12.0); Neutrophils % (auto) 60.4 % (37.0-80.0); Nucleated Red Blood Cells % 0.1 %; Platelet Count (auto) 191 10^3/uL (140-450); Red Blood Cells 3.14 10^6/uL (4.5-5.90); Red Cell Distribution Width 14.6 % (11.8-14.3); White Blood Cell 6.6 10^3/uL (4.4-10.8)
[2025-01-12 06:41] LABS: Anion Gap 7 (5-15); BUN/Creatinine Ratio 24.2 (10.0-20.0); Carbon Dioxide 25 mmol/L (20-31); Potassium 4.4 mmol/L (3.5-5.1)
[2025-01-12 06:46] LABS: Alanine Aminotransferase 44 U/L (7-40); Albumin 2.2 g/dL (3.2-4.8); Alkaline Phosphatase 178 U/L (46-116); Aspartate Aminotransferase 87 U/L (13-40); Bilirubin, Total 2.2 mg/dL (0.2-1.0); Blood Urea Nitrogen 40 mg/dL (9-23); Calcium 7.8 mg/dL (8.7-10.4); Chloride 91 mmol/L (98-107); Glucose 117 mg/dL (74-106); Sodium 123 mmol/L (136-145); Total Protein 5.5 g/dL (5.7-8.2)
[2025-01-12] MEDS: FERROUS SULFATE 325mg EC TAB PO SCH (08:48)
[2025-01-12] MEDS: THIAMINE HCL 100 MG TAB PO SCH (08:48)
[2025-01-12] MEDS: FOLIC ACID 1 MG TAB PO SCH (08:48)
[2025-01-12] MEDS: MAGNESIUM OXIDE 400 MG TAB PO SCH (08:48)
[2025-01-12] MEDS: PANTOPRAZOLE 40 MG/10 ML VIAL INJ IV SCH (08:48)
[2025-01-12] MEDS ORDERED: PATIENTS OWN MEDICATION (Magnesium Oxide 1 TAB) PO SCH (10:00)
[2025-01-12] MEDS ORDERED: PATIENTS OWN MEDICATION (Spironolactone 1 TAB) PO SCH (10:00)
[2025-01-12] MEDS ORDERED: SPIRONOLACTONE 25 MG TAB PO SCH (10:00)
[2025-01-12] MEDS ORDERED: PATIENTS OWN MEDICATION (Folic Acid 1 TAB) PO SCH (10:00)
[2025-01-12] MEDS ORDERED: PATIENTS OWN MEDICATION (Ferrous Sulfate (Ferosul) 1 TAB) PO SCH (10:00)
--- NOTE | 2025-01-12 10:04 | DVHPN2 ---
Subjective 01/12-patient admitted for symptomatic ascites. Paracentesis done yesterday 01/11. Albumin was given has 9 L was removed. Patient feels significantly improved after procedure. This a.m. labs concerning for worsening RODOLFO. Concern for HR S we will have to evaluate further. Reviewed: H&P Changes from previous H/P or p: No Changes General: Per HPI Gastrointestinal: Abdominal Pain, Other (Distention) Objective Vitals Vital Signs Date Time Temp Pulse Resp B/P (MAP) Pulse Ox O2 Delivery O2 Flow Rate FiO2 01/12/25 09:00 97.8 96 17 113/60 (77) 96 97.8 01/11/25 20:00 Room Air* 0 21 Intake/Output Intake and Output 01/12/25 07:00 Intake Total 850 ml Balance 850 ml Intake Oral 750 ml IV Total 100 ml # Voids 3 Exam GEN: Healthy appearing, well-developed, NAD. HEENT: NC/AT; MMM. CV: RRR, no m/r/g. LUNGS: CTAB, no w/r/c. ABD: Abdomen distended with fluid thrill positive, bowel sounds distant hypoactive. EXT: Trace to +1 bilateral pitting edema., skin is jaundiced. NEURO: Ambulating with no limitations. No focal deficits. Medications Current Medications Medications Dose Ordered Sig/Gaston Route Start Time Stop Time Status Last Admin Dose Admin Acetaminophen/ Hydrocodone Bitart 1 tab Q4HP PRN PO 01/11/25 12:30 01/12/25 03:09 1 TAB Ondansetron HCl 4 mg Q4HP PRN IV 01/11/25 12:30 Acetaminophen 650 mg Q6HP PRN PO 01/11/25 12:30 Potassium Chloride 10 meq BID PO 01/11/25 22:00 01/12/25 08:47 10 MEQ Thiamine HCl 100 mg DAILY PO 01/12/25 10:00 01/12/25 08:48 100 MG Patient Own Medication 1 tab DAILY PO 01/12/25 10:00 UNV Patient Own Medication 1 tab DAILY PO 01/12/25 10:00 UNV Patient Own Medication 1 tab DAILY PO 01/12/25 10:00 UNV Ceftriaxone Sodium 50 ml @ 100 mls/hr DAILY@09 IV 01/11/25 12:30 01/12/25 08:47 100 MLS/HR Pantoprazole Sodium 40 mg DAILY IV 01/12/25 10:00 01/12/25 08:48 40 MG Folic Acid 1 mg DAILY PO 01/12/25 10:00 01/12/25 08:48 1 MG Ferrous Sulfate 325 mg DAILY PO 01/12/25 10:00 01/12/25 08:48 325 MG Magnesium Oxide 400 mg DAILY PO 01/12/25 10:00 01/12/25 08:48 400 MG Spironolactone 100 mg DAILY PO 01/12/25 10:00 Hold Albumin Human 100 ml @ 100 mls/hr DAILY IV 01/12/25 10:00 01/13/25 12:00 UNV Laboratory Results Laboratory Tests 01/12/25 05:56 Chemistry Test 01/12/25 05:56 Albumin 2.2 g/dL (3.2-4.8) L Calcium Level 7.8 mg/dL (8.7-10.4) L Total Protein 5.5 g/dL (5.7-8.2) L LFT Test 01/12/25 05:56 Alanine Aminotransferase (ALT) 44 U/L (7-40) H Alkaline Phosphatase 178 U/L (46-116) H Aspartate Amino Transferase (AST) 87 U/L (13-40) H Total Bilirubin 2.2 mg/dL (0.2-1.0) H Labs and/or images reviewed: Labs reviewed by me, Image(s) reviewed by me Assessment/Plan Assessment/Plan 01/12-patient admitted for symptomatic ascites. Paracentesis done yesterday 01/11. Albumin was given has 9 L was removed. Patient feels significantly improved after procedure. This a.m. labs concerning for worsening RODOLFO. Concern for HR S we will have to evaluate further. paracentesis sone ~9.8L removed, this am still looks distended but asymptomatic. however Cr worsening from prior known baseline. need to ruleout HRS and likely VMN will give albumin w/o fluids (po fluids <2L, Na<2g), hold diuretics aldactone and lasix. hyponatremia is acute on chronic, likely cirrhosis volume overload state. - stable currently. low salt diet dvt ppx - lovenox gi ppx - pepcid medsurg full code Plan discussed with: Patient My Orders Orders - CHRISTINE BUTTERFIELD MD Procedure Category Date Status Time Albumin 25% (Albutein) PHA 01/12/25 Logged 10:00 Date of Service: Jan 12, 2025 Billing Provider: CHRISTINE BUTTERFIELD MD Common Visit Codes: [id number] INP/OBS CARE(HIGH) CHRISTINE BUTTERFIELD MD Jan 12, 2025 10:04
[2025-01-12] MEDS: ALBUMIN 25% 100 ML IV SCH (10:47)
[2025-01-13 01:00] VITALS: BP 107/62; PULSE 97; RESP 15; TEMP 98; O2SAT 96
[2025-01-13 04:59] VITALS: BP 117/63; PULSE 81; RESP 15; TEMP 98.2; O2SAT 97
[2025-01-13 07:59] LABS: Hematocrit 28.5 % (41.0-53.0); Mean Corpuscular Hemoglobin 32.9 pg (28.0-32.0); Mean Corpuscular Hgb Conc. 35.1 g/dL (32.0-36.0); Mean Corpuscular Volume 93.7 fL (80.0-100.0); Platelet Count (auto) 159 10^3/uL (140-450); Red Blood Cells 3.04 10^6/uL (4.5-5.90); Red Cell Distribution Width 14.6 % (11.8-14.3)
[2025-01-13 08:10] VITALS: PULSE 91; RESP 16; O2SAT 99
[2025-01-13 08:21] LABS: Band Neutrophils % (manual) 0; Basophils % (manual) 0 (0.0-2.0); Blast Cells 0; Metamyelocytes % 0; Myelocytes % 0; Promyelocytes % 0; Reactive Lymphocytes 0
[2025-01-13 08:23] LABS: Potassium 4.4 mmol/L (3.5-5.1)
[2025-01-13 08:24] LABS: Anion Gap 7 (5-15); Carbon Dioxide 23 mmol/L (20-31)
[2025-01-13 08:25] LABS: Calcium 7.9 mg/dL (8.7-10.4); Chloride 91 mmol/L (98-107); Sodium 121 mmol/L (136-145)
[2025-01-13 08:29] LABS: Glucose 96 mg/dL (74-106)
[2025-01-13 08:34] LABS: Blood Urea Nitrogen 38 mg/dL (9-23)
[2025-01-13 09:00] VITALS: BP 105/57; PULSE 91; RESP 16; TEMP 98.1; O2SAT 99
[2025-01-13] MEDS ORDERED: FURO40TA4 PO (09:13)
[2025-01-13] MEDS ORDERED: FERR325T20 PO (09:13)
[2025-01-13 09:14] LABS: Eosinophils % (manual) 2 (0-7); Lymphocytes % (manual) 36 (10.0-50.0); Monocytes % (manual) 14 (0-12); Platelet Estimate Adequate
--- NOTE | 2025-01-13 09:22 | DVHDS2 ---
Discharge Summary Date of Admission Jan 11, 2025 at 12:20 Date of Discharge: Jan 13, 2025 Labs/Diagnostic Data: Laboratory Results Test 01/13/25 07:07 01/12/25 05:56 01/11/25 09:06 White Blood Count 5.0 10^3/uL (4.4-10.8) Red Blood Count 3.04 10^6/uL (4.5-5.90) Hemoglobin 10.0 g/dL (13.5-17.5) Hematocrit 28.5 % (41.0-53.0) Mean Corpuscular Volume 93.7 fL (80.0-100.0) Mean Corpuscular Hemoglobin 32.9 pg (28.0-32.0) Mean Corpuscular Hemoglobin Concent 35.1 g/dL (32.0-36.0) Red Cell Distribution Width 14.6 % (11.8-14.3) Platelet Count 159 10^3/uL (140-450) Mean Platelet Volume 7.2 fL (6.9-10.8) Neutrophils (%) (Auto) % (37.0-80.0) Lymphocytes (%) (Auto) % (10.0-50.0) Monocytes (%) (Auto) % (0.0-12.0) Basophils (%) (Auto) % (0.0-2.0) Neutrophils # (Auto) 10 ^3/uL (1.6-8.6) Lymphocytes # (Auto) 10 ^3/uL (0.4-5.4) Monocytes # (Auto) 10 ^3/uL (0-1.3) Differential Total Cells Counted 100.0 (100) Neutrophils % (Manual) 48 (37.0-80.0) Band Neutrophils % (Manual) 0 Lymphocytes % (Manual) 36 (10.0-50.0) Monocytes % (Manual) 14 (0-12) Eosinophils % (Manual) 2 (0-7) Basophils % (Manual) 0 (0.0-2.0) Metamyelocytes % (manual) 0 Myelocytes % (Manual) 0 Promyelocytes % (Manual) 0 Blast Cells % (Manual) 0 Reactive Lymphocytes 0 Platelet Estimate Adequate Sodium Level 121 mmol/L (136-145) Potassium Level 4.4 mmol/L (3.5-5.1) Chloride Level 91 mmol/L (98-107) Carbon Dioxide Level 23 mmol/L (20-31) Anion Gap 7 (5-15) Blood Urea Nitrogen 38 mg/dL (9-23) Creatinine 1.46 mg/dL (0.700-1.30) Glomerular Filtration Rate Calc 54 mL/min (>90) BUN/Creatinine Ratio 26.0 (10.0-20.0) Serum Glucose 96 mg/dL (74-106) Calcium Level 7.9 mg/dL (8.7-10.4) Eosinophils (%) (Auto) 1.7 % (0.0-7.0) Eosinophils # (Auto) 0.1 10 ^3/uL (0-0.8) Basophils # (Auto) 0 10 ^3/uL (0-0.2) Nucleated Red Blood Cells 0.1 % Total Bilirubin 2.2 mg/dL (0.2-1.0) Aspartate Amino Transferase (AST) 87 U/L (13-40) Alanine Aminotransferase (ALT) 44 U/L (7-40) Alkaline Phosphatase 178 U/L (46-116) Total Protein 5.5 g/dL (5.7-8.2) Albumin 2.2 g/dL (3.2-4.8) Prothrombin Time 14.3 sec (9.3-11.8) Prothrombin Time INR 1.39 (0.9-1.15) Activated Partial Thromboplast Time 35.9 SEC (24.5-34.5) Other Laboratory Tests 01/13/25 07:07 Brief Hx & Hospital Course: HPI:64-year-old male with past medical history of hypertension, liver cirrhosis, ascites, frequent paracentesis who presents to the ED with abdominal pain and distention. Patient was here last week on January 05 and had about 10 L drained. Patient reports that he quit drinking, does not smoke, and does not use illicit drugs. Patient denies chest pain, shortness of breath, fever, chills, recent trauma or injury, nausea, tingling, numbness, paresthesia, vomiting, or diarrhea. Summary: Patient presented with long distention, on physical exam noted to have significant abdominal distention due to recurrent ascites. Abdominal ultrasound done showing moderate amount of ascites. Patient admitted for symptomatic ascites, paracentesis done 01/11. Removed approximately 9 L during paracentesis and albumin is given. Patient was admitted thereafter for close observation but later noted to have RODOLFO. Given patient had history health alcohol cirrhosis and rising creatinine concern is 4 HR OS. Patient was given further albumin which improves renal function and HR is ruled out. Patient's other home medicine continued, patient remains stable thereafter and diuresis resumed. Patient vital signs stable, abdominal distention and pain resolved, creatinine improving, patient is stable for discharge as per plan below. Diagnosis: Intractable abdominal pain due to symptomatic ascites, Resolved status post paracentesis Large amount ascites removal requiring albumin infusion RODOLFO due to VMN, on CKD of unknown etiology HRS is ruled out Chronic hyponatremia due to cirrhosis volume overload state Alcohol cirrhosis Chronic alcohol abuse Hyperammonemia Hypoalbuminemia due to cirrhosis Chronic malnutrition Jaundice chronic Hypertension resolving Discharge plan: Lasix decreased to 40 mg once daily only continue Spironolactone 100 mg daily Stop lisinopril and stop nifedipine/Procardia Change iron to 1 pill every other day ( not daily) Continue other medications as prescribed Condition at Discharge: Fair Final Diagnosis/Problems List Intractable abdominal pain due to symptomatic ascites, Resolved status post paracentesis Large amount ascites removal requiring albumin infusion RODOLFO due to VMN, on CKD of unknown etiology HRS is ruled out Chronic hyponatremia due to cirrhosis volume overload state Alcohol cirrhosis Chronic alcohol abuse Hyperammonemia Hypoalbuminemia due to cirrhosis Chronic malnutrition Jaundice chronic Hypertension resolving Discharge Disposition: Home Discharge Instruct/Medications Diet: See Comment Diet comment: low salt Activity: No Restrictions, As Tolerated Follow Up/Referral: pcp Medications: below Discharge Statement: "Patient was advised to return to the ER or call 911 if any headaches, dizziness, shortness of breath, chest pain, abdominal pain, bleeding, fevers, or worsening of medical condition. Patient was counseled about treatment plan, medications, possible side effects, patientverbalized understanding. All questions were answered to the best of my ability. This discharge took greater then 30 minutes in planning, reviewing documentation, counseling the patient, and discussing with other team members." Date of Service: Jan 13, 2025 Billing Provider: CHRISTINE BUTTERFIELD MD Common Visit Codes: [id number] DISCH DAY >30min CHRISTINE BUTTERFIELD MD Jan 13, 2025 09:21
[2025-01-13] MEDS: SPIRONOLACTONE 25 MG TAB PO SCH (10:28)
[2025-01-13] MEDS: FUROSEMIDE 20 MG TAB PO SCH (10:28)
[2025-01-13 11:36] VITALS: BP 115/70; PULSE 91; RESP 16; TEMP 98.1; O2SAT 99
[2025-01-13 12:07] VITALS: BP 103/70; PULSE 91; RESP 18; TEMP 98.8; O2SAT 97
== END 2025-01-13 14:10 | disposition home or self-care (01) | DRG 280 ==
LOC: ER 08:08 → OVERFLOW 12:20 → CENTRAL 15:40
PROVIDERS: ADMIT Student in an Organized Health Care Education/Training Program; ATTEND Student in an Organized Health Care Education/Training Program
PROC: 0W9G3ZZ Drainage of Peritoneal Cavity, Percutaneous Approach (ICD-10-PCS; principal; 2025-01-11)
DX: K70.31 Alcoholic cirrhosis of liver with ascites (principal); N17.0 Acute kidney failure with tubular necrosis; E46 Unspecified protein-calorie malnutrition; E87.1 Hypo-osmolality and hyponatremia; D64.9 Anemia, unspecified; E88.09 Other disorders of plasma-protein metabolism, not elsewhere classified; F10.10 Alcohol abuse, uncomplicated; E87.70 Fluid overload, unspecified; N18.9 Chronic kidney disease, unspecified; I12.9 Hypertensive chronic kidney disease with stage 1 through stage 4 chronic kidney disease, or unspecified chronic kidney disease; Z79.899 Other long term (current) drug therapy; Z68.27 Body mass index [BMI] 27.0-27.9, adult; Y90.9 Presence of alcohol in blood, level not specified
CPT/HCPCS: 36415; 49083; 76705; 76942; 80048; 80053; 85007; 85025; 85027; 85610; 85730; 87081; 93005; 96365; 96367; G0378; J2470; P9047

== ENCOUNTER 2025-01-15 23:50 | Inpatient (IN) | payer MEDICAID ==
[~2025-01-15] VITALS: Ht 177.8 cm; Wt 88.5 kg
[~2025-01-15 23:50] MED LIST changes: -LISI20TA56 PO
[2025-01-16] VITALS (33 sets, daily range): BP systolic 92–127; BP diastolic 35–60; PULSE 53–109; RESP 12–23; TEMP 98.5–98.6; O2SAT 92–100
[2025-01-16 01:16] LABS: Basophils # (auto) 0.1 10 ^3/uL (0-0.2); Basophils % (auto) 1.3 % (0.0-2.0); Eosinophils # (auto) 0.1 10 ^3/uL (0-0.8); Hematocrit 26.5 % (41.0-53.0); Hemoglobin 9.3 g/dL (13.5-17.5); Lymphocytes % (auto) 16.2 % (10.0-50.0); Mean Corpuscular Hemoglobin 33.1 pg (28.0-32.0); Mean Corpuscular Hgb Conc. 35.2 g/dL (32.0-36.0); Mean Corpuscular Volume 94.1 fL (80.0-100.0); Monocytes # (auto) 1.1 10 ^3/uL (0-1.3); Monocytes % (auto) 18.6 % (0.0-12.0); Neutrophils # (auto) 3.7 10 ^3/uL (1.6-8.6); Neutrophils % (auto) 61.9 % (37.0-80.0); Nucleated Red Blood Cells % 0.1 %; Platelet Count (auto) 201 10^3/uL (140-450); Red Blood Cells 2.82 10^6/uL (4.5-5.90); Red Cell Distribution Width 14.6 % (11.8-14.3)
[2025-01-16 01:35] LABS: Carbon Dioxide 23 mmol/L (20-31); Chloride 100 mmol/L (98-107)
[2025-01-16 01:36] LABS: Anion Gap 3 (5-15); BUN/Creatinine Ratio 17.5 (10.0-20.0); INR 1.52 (0.9-1.15); Partial Thromboplastin Time 36.2 SEC (24.5-34.5); Prothrombin Time 15.5 sec (9.3-11.8)
[2025-01-16 01:37] LABS: Alanine Aminotransferase 52 U/L (7-40); Albumin 2.4 g/dL (3.2-4.8); Alkaline Phosphatase 147 U/L (46-116); Aspartate Aminotransferase 112 U/L (13-40); Bilirubin, Total 1.8 mg/dL (0.2-1.0); Blood Urea Nitrogen 33 mg/dL (9-23); Calcium 8.3 mg/dL (8.7-10.4); Glucose 111 mg/dL (74-106); Potassium 5.5 mmol/L (3.5-5.1); Sodium 126 mmol/L (136-145); Total Protein 5.5 g/dL (5.7-8.2)
--- NOTE | 2025-01-16 02:14 | ED.PDOC ---
History of Present Illness HPI Comments 64 y/o M, with a Hx of RODOLFO, HTN, alcohol-induced liver cirrhosis, freqent paracentesis, and former alcohol abuse (quite ~1 year), is BIB spouse for c/o non-radiating, diffused abdominal pain and distension for the past 2x days, today. Per spouse, patient receives paracentesis at [facility] for ascites secondary to liver cirrhosis weekly and is brought, today, due to worsening symptoms following gradual onset. He has no reported nausea, vomiting, diarrhea, fever, chills, or other associated symptoms or modifiers at this time. Chief Complaint: Abdominal Pain Time Seen by MD: 00:40 Primary Care Provider: GABRIEL Alfaro Notes: Nurses Notes, Medications, Allergies Allergies: Coded Allergies: NO KNOWN ALLERGIES (Unverified , 12/20/24) Home Meds Active Scripts Ferrous Sulfate (Ferosul) 325 Mg Tab, 1 TAB PO EOD for 30 Days, #30 TAB 0 Refills Prov:CHRISTINE BUTTERFIELD MD 01/13/25 Furosemide (Furosemide) 40 Mg Tab, 1 TAB PO DAILY for 30 Days, #30 TAB 0 Refills Prov:CHRISTINE BUTTERFIELD MD 01/13/25 Lactulose (Lactulose) 10 Gm Julian, 10 GM PO BID, #120 PACK Prov:SAMAN SONI MD 12/23/24 Reported Medications Thiamine Hcl (VITAMIN B-1) 100 Mg Tb, 1 TAB PO DAILY 12/20/24 Folic Acid (Folic Acid) 1 Mg Tab, 1 TAB PO DAILY 12/20/24 Magnesium Oxide (MAGNESIUM OXIDE) 400 Mg Tab, 1 TAB PO DAILY 12/20/24 Potassium Chloride (Klor-Con 10) 10 Meq Tab, 1 TAB PO BID 12/20/24 Spironolactone (Spironolactone) 100 Mg Tab, 1 TAB PO DAILY 12/20/24 Discontinued Reported Medications Nifedipine (Nifedipine Er) 30 Mg Tab, 1 TAB PO DAILY 01/11/25 Lisinopril (Lisinopril) 20 Mg Tab, 1 TAB PO DAILY 12/20/24 Information Source: Spouse Mode of Arrival: Wheelchair Past Medical History PAST MEDICAL HISTORY: HTN, Liver (liver cirrhosis, alcohol ) Past Medical History (Other): frequent paracentesis RODOLFO Surgical History: Denies all surgeries Family History Family History: Reviewed,noncontributory to illness, Unknown Social History Smoker: Non-Smoker Alcohol: Sober (quite a year ago ) Drugs: Denies Drug Use Lives In: Home All Other Systems: Reviewed and Negative (Comprehensive systems review obtained and negative except for what is stated in the HPI.) Physical Exam General Appearance: No Apparent Distress, Normal, Other (slow to respond) HEENT: Pharynx Normal, TMs Normal, Other (scleral icterus, otherwise normal HEENT exam) Neck: Full Range of Motion, Non-Tender, Normal, Normal Inspection Respiratory: Chest Non-Tender, Lungs Clear, No Accessory Muscle Use, No Respiratory Distress, Normal Breath Sounds Cardiovascular: No Edema, No JVD, No Murmur, No Gallop, Normal Peripheral Pulses, Regular Rate/Rhythm Breast Exam: Deferred Gastrointestinal: Distended, No Organomegaly, Non Tender, No Pulsatile Mass, Normal Bowel Sounds, Soft, Other (tense ascites) Genitalia: Deferred Pelvic: Deferred Rectal: Deferred Extremities: No calf tenderness, Normal capillary refill, Normal inspection, Normal range of motion, Non-tender, No pedal edema Musculoskeletal : Apperance: Normal Neurologic: Alert, client experience specialist II-XII nml as Tested, No Motor Deficits, Normal Affect, Normal Mood, No Sensory Deficits Cerebellar Function: Normal Reflexes: Normal Skin: Dry, Jaundice, Warm Lymphatic: No Adenopathy Was a procedure done? Was a procedure done?: No Differential Dx Considerations may include: ascites, liver cirrhosis, liver failure, peritonitis, hepatic encephalopathy X-Ray, Labs, Meds, VS Vital Signs Date Time Temp Pulse Resp B/P (MAP) Pulse Ox O2 Delivery O2 Flow Rate FiO2 01/16/25 00:10 97.5 74 12 115/91 (99) 99 97.5 Lab Test 01/16/25 01:04 Range/Units White Blood Count 6.0 4.4-10.8 10^3/uL Red Blood Count 2.82 L 4.5-5.90 10^6/uL Hemoglobin 9.3 L 13.5-17.5 g/dL Hematocrit 26.5 L 41.0-53.0 % Mean Corpuscular Volume 94.1 80.0-100.0 fL Mean Corpuscular Hemoglobin 33.1 H 28.0-32.0 pg Mean Corpuscular Hemoglobin Concent 35.2 32.0-36.0 g/dL Red Cell Distribution Width 14.6 H 11.8-14.3 % Platelet Count 201 140-450 10^3/uL Mean Platelet Volume 7.0 6.9-10.8 fL Neutrophils (%) (Auto) 61.9 37.0-80.0 % Lymphocytes (%) (Auto) 16.2 10.0-50.0 % Monocytes (%) (Auto) 18.6 H 0.0-12.0 % Eosinophils (%) (Auto) 2.0 0.0-7.0 % Basophils (%) (Auto) 1.3 0.0-2.0 % Neutrophils # (Auto) 3.7 1.6-8.6 10 ^3/uL Lymphocytes # (Auto) 1.0 0.4-5.4 10 ^3/uL Monocytes # (Auto) 1.1 0-1.3 10 ^3/uL Eosinophils # (Auto) 0.1 0-0.8 10 ^3/uL Basophils # (Auto) 0.1 0-0.2 10 ^3/uL Nucleated Red Blood Cells 0.1 % Prothrombin Time 15.5 H 9.3-11.8 sec Prothrombin Time INR 1.52 H 0.9-1.15 Activated Partial Thromboplast Time 36.2 H 24.5-34.5 SEC Sodium Level 126 #L 136-145 mmol/L Potassium Level 5.5 H 3.5-5.1 mmol/L Chloride Level 100 98-107 mmol/L Carbon Dioxide Level 23 20-31 mmol/L Anion Gap 3 L 5-15 Blood Urea Nitrogen 33 H 9-23 mg/dL Creatinine 1.89 H 0.700-1.30 mg/dL Glomerular Filtration Rate Calc 39 >90 mL/min BUN/Creatinine Ratio 17.5 10.0-20.0 Serum Glucose 111 H 74-106 mg/dL Calcium Level 8.3 L 8.7-10.4 mg/dL Total Bilirubin 1.8 H 0.2-1.0 mg/dL Aspartate Amino Transferase (AST) 112 H 13-40 U/L Alanine Aminotransferase (ALT) 52 H 7-40 U/L Alkaline Phosphatase 147 H 46-116 U/L Ammonia 19 11-32 umol/L Total Protein 5.5 L 5.7-8.2 g/dL Albumin 2.4 L 3.2-4.8 g/dL Time of 1ST Reevaluation: 01:20 Reevaluation 1ST: Unchanged Time of 2ND Reevaluation: 02:30 Reevaluation 2ND: Unchanged Patient Education/Counseling: Diagnosis, Treatment, Prognosis, Need For Follow Up Family Education/Counseling: Diagnosis, Treatment, Prognosis, Need For Follow Up Additional Information Previous medical encounters reviewed: January 11, 2025 encounter for abdominal distention due to ascites The following tests were ordered, and results were reviewed by me: US paracentesis, ammonia, PTPTT, CMP, CBC Additional Information was gathered from interviewing the following independent historians: spouse I reviewed and agreed with the following test results read by other providers: n/a I discussed treatment and results with medical personnel and: Patient, pt is stable, he has no abdominal tenderness and is not confused. he has recurrent ascites. he will need US guided paracentesis in AM, then he would be stable for discharge from ER. i will sign out to Dr Lainez at shift change Departure 1 Departure Time of Disposition: 06:00 Impression: Primary Impression: Cirrhosis of liver with ascites Qualified Codes: K70.31 - Alcoholic cirrhosis of liver with ascites Disposition: 01 HOME / SELF CARE / HOMELESS Condition: Good Discharged With: Self, Spouse Critical Care Note Critical Care Time?: No Stability Stability form required: No Heart Score Heart Score: Heart Score Response (Comments) Value History N/A 0 EKG N/A 0 Age N/A 0 Risk Factors N/A 0 Troponin N/A 0 Total 0 I personally scribed for JESSICA PUTNAM MD ([email or web address]) on 01/16/25 at 02:14. Electron ically submitted by Jose Huertas ([email or web address]). JESSICA PUTNAM MD Jan 16, 2025 02:14
[2025-01-16] MEDS: NOREPINEPHRINE 8 MG/250ML KIT 250 ML IV SCH (06:17)
[2025-01-16] MEDS: ALBUMIN 25% 100 ML IV ONE (06:29)
[2025-01-16] MEDS: VANCOMYCIN 1GM/200ML PM 200 ML IV ONE (06:30)
--- NOTE | 2025-01-16 07:00 | ECG ---
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
[2025-01-16 07:48] LABS: Chloride 99 mmol/L (98-107)
[2025-01-16 07:49] LABS: Anion Gap 8 (5-15); Calcium 8.7 mg/dL (8.7-10.4)
[2025-01-16 07:54] LABS: BUN/Creatinine Ratio 14.3 (10.0-20.0); Blood Urea Nitrogen 30 mg/dL (9-23); Carbon Dioxide 17 mmol/L (20-31); Glucose 106 mg/dL (74-106); Sodium 124 mmol/L (136-145)
[2025-01-16 07:58] LABS: Potassium 6.2 mmol/L (3.5-5.1)
--- NOTE | 2025-01-16 08:17 | DVH ---
US PARACENTESIS, HISTORY: ASCITES TECHNICAL DATA: Transverse and longitudinal sonographic images were obtained of the abdomen. COMPARISON: US PARACENTESIS on DOS: 01/11/25, US PARACENTESIS on DOS: 01/05/25, US PARACENTESIS on DOS: 12/29/24 FINDINGS: IMPRESSION: Ultrasound guidance was used to perform a paracentesis by the physician. Please see procedure report for additional details by Dr. Lainez.
[2025-01-16] MEDS: PIPERACILLIN-TAZOB 3.375GM 100 ML IV ONE (09:17)
[2025-01-16] MEDS: KETAMINE 50mg/ML 10ml Vial (500mg/10ml) IV ONE (11:33)
[2025-01-16] MEDS ORDERED: ACETAMINOPHEN 325 MG TAB PO PRN (14:30)
[2025-01-16] MEDS ORDERED: ONDANSETRON HCL 4 MG/2 ML VIAL IV PRN (14:30)
[2025-01-16] MEDS ORDERED: MORPHINE SULFATE INJ 2 MG/ml SYRG IV PRN (14:30)
[2025-01-16] MEDS ORDERED: NITROGLYCERIN 0.4 MG SL TAB SL PRN (14:30)
[2025-01-16] MEDS: HYDROcodone-ACET 5/325MG TAB PO PRN (14:42)
[2025-01-16] MEDS: PHENYLEPHRINE IV 250 ML IV SCH (14:43)
--- NOTE | 2025-01-16 15:08 | DVHHP2 ---
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 Patient states that he has had to have a paracentesis about every week. He has been working with his primary care provider and his liver specialist to try and get the paracentesis scheduled as an outpatient. Cardiovascular: HTN Hepatobiliary: Cirrhosis Review of Systems Constitutional: No: Fever, Chills, Sweats, Weakness, Malaise, Other Eyes: No: Pain, Vision change, Conjunctivae inflammation, Eyelid inflammation, Other, Redness ENT: No: Ear pain, Ear discharge, Nose pain, Nose discharge, Nose congestion, Mouth pain, Mouth swelling, Throat pain, Throat swelling, Other Respiratory: Shortness of breath; No: Cough, Dry, SOB with excertion, Wheezing, Hemoptysis, Pleuritic Pain, Sputum, Wheezing, Other Cardiovascular: No: Chest Pain, Palpitations, Orthopnea, Paroxysmal Noc. Dyspnea, Edema, Lt Headedness, Other Gastrointestinal: Abdominal Pain; No: Nausea, Vomiting, Diarrhea, Constipation, Melena, Hematochezia, Other Genitourinary: No Dysuria, No Frequency, No Incontinence, No Hematuria, No Retention, No Other Musculoskeletal: No: other, neck pain, shoulder pain, arm pain, back pain, hand pain, leg pain, foot pain Skin: No: Rash, Lesions, Jaundice, Bruising, Other Neurological: No: Weakness, Numbness, Incoordination, Change in speech, Confusion, Seizures, Other Allergies: Coded Allergies: NO KNOWN ALLERGIES (Unverified , 12/20/24) Medications Current Medications Medications Dose Ordered Sig/Gaston Route Start Time Stop Time Status Last Admin Dose Admin Norepinephrine Bitartrate 250 ml @ 3.75 mls/hr Q24H IV 01/16/25 06:15 01/16/25 13:23 56.25 MLS/HR Acetaminophen/ Hydrocodone Bitart 1 tab Q4HP PRN PO 01/16/25 14:30 Ondansetron HCl 4 mg Q4HP PRN IV 01/16/25 14:30 Docusate Sodium 100 mg BIDPRN PRN PO 01/16/25 14:30 Acetaminophen 650 mg Q6HP PRN PO 01/16/25 14:30 Nitroglycerin 0.4 mg Q5MINP PRN SL 01/16/25 14:30 Morphine Sulfate 2 mg Q30M PRN IV 01/16/25 14:30 Phenylephrine HCl 250 ml @ 30 mls/hr Q8H20M IV 01/16/25 14:30 Furosemide 20 mg BIDD IV 01/17/25 06:00 Exam Vital Signs Vital Signs Date Time Temp Pulse Resp B/P (MAP) Pulse Ox O2 Delivery O2 Flow Rate FiO2 01/16/25 13:23 61/24 01/16/25 10:45 62 13 100 01/16/25 10:00 97.9 97.9 01/16/25 07:30 Non-Rebreather 15 N/A General Appearance: Alert, Oriented X3, Cooperative, mild distress HEENT: Atraumatic, PERRLA, EOMI Respiratory: Clear to auscultation, Normal air movement Cardiovascular: Regular rate, Normal S1, Normal S2, No murmurs, Other (Hypotensive, on vasopressors) Abdominal: Normal bowel sounds, Soft, No tenderness, No hepatospenomegaly Extremities: No clubbing, No cyanosis, No edema, Normal pulses, No te nderness/swelling Skin: No rashes, No breakdown, No significant lesion Neuro: Normal gait, Normal speech, Strength at 5/5 X4 ext, Normal tone Psych/Mental Status: Mental status NL, Mood NL Labs/Xrays Labs Test 01/16/25 09:35 01/16/25 08:30 01/16/25 06:37 01/16/25 01:04 Range/Units Troponin I High Sensitivity 22 </=54 ng/L Lactic Acid Level 3.3 *H 0.4-2.0 mmol/L Sodium Level 124 L 136-145 mmol/L Potassium Level 6.2 *H 3.5-5.1 mmol/L Chloride Level 99 98-107 mmol/L Carbon Dioxide Level 17 L 20-31 mmol/L Anion Gap 8 5-15 Blood Urea Nitrogen 30 H 9-23 mg/dL Creatinine 2.10 H 0.700-1.30 mg/dL Glomerular Filtration Rate Calc 35 >90 mL/min BUN/Creatinine Ratio 14.3 10.0-20.0 Serum Glucose 106 74-106 mg/dL Calcium Level 8.7 8.7-10.4 mg/dL White Blood Count 6.0 4.4-10.8 10^3/uL Red Blood Count 2.82 L 4.5-5.90 10^6/uL Hemoglobin 9.3 L 13.5-17.5 g/dL Hematocrit 26.5 L 41.0-53.0 % Mean Corpuscular Volume 94.1 80.0-100.0 fL Mean Corpuscular Hemoglobin 33.1 H 28.0-32.0 pg Mean Corpuscular Hemoglobin Concent 35.2 32.0-36.0 g/dL Red Cell Distribution Width 14.6 H 11.8-14.3 % Platelet Count 201 140-450 10^3/uL Mean Platelet Volume 7.0 6.9-10.8 fL Neutrophils (%) (Auto) 61.9 37.0-80.0 % Lymphocytes (%) (Auto) 16.2 10.0-50.0 % Monocytes (%) (Auto) 18.6 H 0.0-12.0 % Eosinophils (%) (Auto) 2.0 0.0-7.0 % Basophils (%) (Auto) 1.3 0.0-2.0 % Neutrophils # (Auto) 3.7 1.6-8.6 10 ^3/uL Lymphocytes # (Auto) 1.0 0.4-5.4 10 ^3/uL Monocytes # (Auto) 1.1 0-1.3 10 ^3/uL Eosinophils # (Auto) 0.1 0-0.8 10 ^3/uL Basophils # (Auto) 0.1 0-0.2 10 ^3/uL Nucleated Red Blood Cells 0.1 % Prothrombin Time 15.5 H 9.3-11.8 sec Prothrombin Time INR 1.52 H 0.9-1.15 Activated Partial Thromboplast Time 36.2 H 24.5-34.5 SEC Total Bilirubin 1.8 H 0.2-1.0 mg/dL Aspartate Amino Transferase (AST) 112 H 13-40 U/L Alanine Aminotransferase (ALT) 52 H 7-40 U/L Alkaline Phosphatase 147 H 46-116 U/L Ammonia 19 11-32 umol/L Total Protein 5.5 L 5.7-8.2 g/dL Albumin 2.4 L 3.2-4.8 g/dL US PARACENTESIS, FINDINGS: IMPRESSION: Ultrasound guidance was used to perform a paracentesis by the physician. Please see procedure report for additional details by Dr. Lainez. Assessment/Plan Assessment/Plan Assessment: Cirrhosis of liver with ascites, Hypotension, Hyperkalemia, Lactic acidosis, Hyperbilirubinemia, Transaminitis, Anemia, Hyponatremia, Plan Admit to ICU, Paracentesis completed with 8.6L off, Vasopressors as needed to maintain blood pressure, Antiemetics, Pain Management, Empiric IV antibiotics-ceftriaxone, Diuretics, Ammonia, Home medications reconciled, Plan discussed with: Patient My Orders Orders - ROXI CALLE HEART SURGEON Procedure Category Date Status Time Admit ADMIT 01/16/25 Transmitted 14:26 Code Status CODE 01/16/25 Transmitted 14:26 2 Gm Sodium Diet DIET 01/16/25 Transmitted Dinner Hydrocodone-Acet PHA 01/16/25 In Process 5/325mg Tab (Meade 14:30 Ondansetron Hcl PHA 01/16/25 In Process (Zofran) 14:30 Docusate Sodium PHA 01/16/25 In Process Capsule (Colace 14:30 Complete Blood Count LAB 01/17/25 Verified 04:00 Comprehensive LAB 01/17/25 Verified Metabolic Panel 04:00 Condition: Critical SUKHDEV 01/16/25 In Process 14:26 Acetaminophen Tablet PHA 01/16/25 In Process (Tylenol Tablet) 14:30 Nitroglycerin PHA 01/16/25 In Process Sublingual (Ntrostat 14:30 Morphine Sulfate PHA 01/16/25 In Process Injection 14:30 Stat Ekg For Chest SUKHDEV 01/16/25 In Process Pain 14:26 Notify Md Of Changes SUKHDEV 01/16/25 In Process From Base 14:26 Retouching Operator For SUKHDEV 01/16/25 In Process 24 Hours 14:26 Emergency Dysrhythmia SUKHDEV 01/16/25 In Process Protocol 14:26 Rhythm Strips Once SUKHDEV 01/16/25 In Process Every Shift 14:26 Oxygen By Nasal RT 01/16/25 Transmitted Cannula 14:26 Phenylephrine Iv PHA 01/16/25 In Process (Phenylephrine/Ns) 14:30 Albumin 5% (Albutein) PHA 01/16/25 In Process 14:30 Furosemide Injection PHA 01/16/25 In Process (Lasix Injection) 14:45 Furosemide Injection PHA 01/17/25 In Process (Lasix Injection) 06:00 Date of Service: Jan 16, 2025 Billing Provider: ROXI CALLE Common Visit Codes: [id number] INP/OBS CARE (HIGH) ROXI CALLE Jan 16, 2025 15:08
[2025-01-16] MEDS: ALBUMIN 5% 250 ML IV ONE (15:14)
--- NOTE | 2025-01-16 15:24 | ED.PDOC ---
Was a procedure done? 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: Attending Physician Indication: Hypotension Room prepared for procedure: Yes Mineral Resources Inspector performed hand hygien: Yes Maximal sterile barrier precau: Mask/Eye shield, Sterlie gloves, Large sterlie drape Skin Preparation: Chlorhexidine gluconate Skin preparation completely dr: Yes Insertion site: Right, Femoral Central line catheter type: [id number] dialysis Number of lumens: 3 Central line exchanged over a: Yes Antiseptic ointment applied to: Yes Post Assessment: Proper placement Informed consent obtained: Yes Risks/benefits/alt described: Yes Other Procedure Procedure Paracentesis Indication ascites Anesthetic 1% lidocaine Prep Chlorhexadine Success Yes Informed consent obtained: Yes Risks, benefits, and alternati: Yes RACHEL RODRIGUEZ MD Jan 16, 2025 15:24
[2025-01-16] MEDS: FUROSEMIDE 40 MG/4 ML VIAL IV ONE (16:16)
[2025-01-16 19:35] LABS: Lactic Acid w/Reflex 4.3 mmol/L (0.4-2.0); Potassium 6.7 mmol/L (3.5-5.1)
[2025-01-16] MEDS: ALBUTEROL SULF 2.5 MG/0.5ML(0.5%) NEB SOLN NEB ONE (20:00)
[2025-01-16] MEDS: ALBUTEROL SULF 2.5 MG/0.5ML(0.5%) NEB SOLN ONE (20:27)
[2025-01-16] MEDS: CALCIUM GLUC 1,000mg/50ml-NS 50 ML IV ONE (20:50)
[2025-01-16] MEDS: DEXTROSE (50%) 50ML SYRG IV ONE (20:52)
[2025-01-16] MEDS: InsuLIN REG 1unit/0.01ml Soln (100units/ml) IV ONE (20:52)
[2025-01-16] MEDS ORDERED: SODIUM BICARB 8.4% 50Meq/50ml SYR Vial IV ONE (21:15)
[2025-01-16] MEDS: SODIUM BICARB 8.4% 50Meq/50ml SYR INJ IV ONE (21:34)
[2025-01-16] MEDS: SODIUM BICARB 50mEq/50ml Vial 150 ML in D5W 5% 1,000 ML IV ONE (21:40)
[2025-01-17] VITALS (94 sets, daily range): BP systolic 84–127; BP diastolic 35–68; PULSE 69–110; RESP 12–25; TEMP 98–98.9; O2SAT 92–99
[2025-01-17 00:42] LABS: Potassium 5.1 mmol/L (3.5-5.1)
[2025-01-17 00:49] LABS: Magnesium 1.7 mg/dL (1.6-2.6)
[2025-01-17 04:30] LABS: Basophils # (auto) 0.1 10 ^3/uL (0-0.2); Basophils % (auto) 0.6 % (0.0-2.0); Eosinophils # (auto) 0.1 10 ^3/uL (0-0.8); Eosinophils % (auto) 0.9 % (0.0-7.0); Hematocrit 28.1 % (41.0-53.0); Lymphocytes # (auto) 1.2 10 ^3/uL (0.4-5.4); Lymphocytes % (auto) 8.8 % (10.0-50.0); Mean Corpuscular Hemoglobin 33.2 pg (28.0-32.0); Mean Corpuscular Hgb Conc. 35.6 g/dL (32.0-36.0); Mean Corpuscular Volume 93.2 fL (80.0-100.0); Monocytes # (auto) 2.5 10 ^3/uL (0-1.3); Neutrophils % (auto) 71.7 % (37.0-80.0); Nucleated Red Blood Cells % 0.1 %; Platelet Count (auto) 175 10^3/uL (140-450); Red Blood Cells 3.01 10^6/uL (4.5-5.90); Red Cell Distribution Width 14.9 % (11.8-14.3); White Blood Cell 13.9 10^3/uL (4.4-10.8)
[2025-01-17 04:45] LABS: Anion Gap 6 (5-15); BUN/Creatinine Ratio 21.9 (10.0-20.0); Carbon Dioxide 25 mmol/L (20-31)
[2025-01-17 04:47] LABS: Alanine Aminotransferase 47 U/L (7-40); Albumin 2.5 g/dL (3.2-4.8); Alkaline Phosphatase 123 U/L (46-116); Aspartate Aminotransferase 111 U/L (13-40); Bilirubin, Total 2.4 mg/dL (0.2-1.0); Blood Urea Nitrogen 33 mg/dL (9-23); Calcium 8.5 mg/dL (8.7-10.4); Chloride 98 mmol/L (98-107); Glucose 151 mg/dL (74-106); Potassium 5.1 mmol/L (3.5-5.1); Sodium 129 mmol/L (136-145); Total Protein 5.3 g/dL (5.7-8.2)
[2025-01-17 05:34] LABS: Platelet Estimate Adequate
[2025-01-17] MEDS: FUROSEMIDE 20 MG/2 ML VIAL IV SCH (05:43)
[2025-01-17] MEDS: DOCUSATE SOD 100 MG CAP PO PRN (08:00)
[2025-01-17] MEDS: cefTRIAXone 1GM/50ML D5W 50 ML IV ONE (09:51)
[2025-01-17] MEDS: THIAMINE HCL 100 MG TAB PO SCH (09:51)
[2025-01-17] MEDS: PHENYLEPHRINE INJ 80 MG in SODIUM CHL 0.9% 242 ML IV SCH (14:30)
--- NOTE | 2025-01-17 15:09 | DVHPN2 ---
Reviewed: Care Plan, H&P, Labs, Medications, Previous Orders, Radiology Changes from previous H/P or p: No Changes General: Per HPI Eyes: No Pain, No Vision change, No Conjunctivae inflammation, No Eyelid inflammation, No Other, No Redness ENT: No Ear pain, No Ear discharge, No Nose pain, No Nose discharge, No Nose congestion, No Mouth pain, No Mouth swelling, No Throat pain, No Throat swelling, No Other Cardiovascular: No Chest Pain, No Palpitations, No Orthopnea, No Paroxysmal Noc. Dyspnea, No Edema, No Lt Headedness, No Other Respiratory: No Cough, No Dry; Shortness of breath; No SOB with excertion, No Wheezing, No Hemoptysis, No Pleuritic Pain, No Sputum, No Other Gastrointestinal: No Nausea, No Vomiting; Abdominal Pain; No Diarrhea, No Constipation, No Melena, No Hematochezia, No Other Genitourinary: No Dysuria, No Frequency, No Incontinence, No Hematuria, No Retention, No Other Musculoskeletal: No other, No neck pain, No shoulder pain, No arm pain, No back pain, No hand pain, No leg pain, No foot pain Skin: No Rash, No Lesions, No Jaundice, No Bruising, No Other Objective Vitals Vital Signs Date Time Temp Pulse Resp B/P (MAP) Pulse Ox O2 Delivery O2 Flow Rate FiO2 01/17/25 13:30 95 24 93/60 (71) 98 01/17/25 12:00 98.1 98.1 01/17/25 12:00 Nasal Cannula* 2 28 Intake/Output Intake and Output 01/17/25 07:00 Intake Total 3255.310 ml Output Total 53967 ml Balance -6894.690 ml Intake Oral 400 ml IV Total 2855.310 ml Output Urine Total 1550 ml Drainage Total 8600 ml General Appearance: Alert, Oriented X3, Cooperative HEENT: Atraumatic Cardiovascular: Regular rate, Normal S1, Normal S2 Abdomen: Normal bowel sounds, Soft Medications Current Medications Medications Dose Ordered Sig/Gaston Route Start Time Stop Time Status Last Admin Dose Admin Acetaminophen/ Hydrocodone Bitart 1 tab Q4HP PRN PO 01/16/25 14:30 01/17/25 05:44 1 TAB Ondansetron HCl 4 mg Q4HP PRN IV 01/16/25 14:30 Docusate Sodium 100 mg BIDPRN PRN PO 01/16/25 14:30 01/17/25 08:00 100 MG Acetaminophen 650 mg Q6HP PRN PO 01/16/25 14:30 Nitroglycerin 0.4 mg Q5MINP PRN SL 01/16/25 14:30 Morphine Sulfate 2 mg Q30M PRN IV 01/16/25 14:30 Furosemide 20 mg BIDD IV 01/17/25 06:00 01/17/25 05:43 20 MG Thiamine HCl 100 mg DAILY PO 01/17/25 10:00 01/17/25 09:51 100 MG Ceftriaxone Sodium 50 ml @ 100 mls/hr DAILY@09 IV 01/18/25 09:00 Magnesium Oxide 400 mg DAILY PO 01/17/25 13:45 Phenylephrine HCl 80 mg/Sodium Chloride 250 ml @ 7.5 mls/hr Q24H IV 01/17/25 14:30 Norepinephrine Bitartrate 32 mg/ Sodium Chloride 250 ml @ 0.938 mls/ hr Q24H IV 01/17/25 14:30 Laboratory Results Laboratory Tests 01/17/25 03:27 Chemistry Test 01/16/25 18:29 01/17/25 00:19 01/17/25 03:27 Magnesium Level 2.0 mg/dL (1.6-2.6) 1.7 mg/dL (1.6-2.6) Albumin 2.5 g/dL (3.2-4.8) L Calcium Level 8.5 mg/dL (8.7-10.4) L Total Protein 5.3 g/dL (5.7-8.2) L LFT Test 01/17/25 03:27 Alanine Aminotransferase (ALT) 47 U/L (7-40) H Alkaline Phosphatase 123 U/L (46-116) H Aspartate Amino Transferase (AST) 111 U/L (13-40) H Total Bilirubin 2.4 mg/dL (0.2-1.0) H Urinalysis Test 01/17/25 01:25 Urine Sodium 26 mmol/L (40-220) L Microbiology Microbiology Date/Time Source Procedure Growth Status 01/16/25 17:00 Nose MRSA Screen - Final Complete 01/16/25 06:36 Blood Blood Culture - Preliminary NO GROWTH AFTER 24 HOURS OF INCUBATION. Resulted Labs and/or images reviewed: Labs reviewed by me, Image(s) reviewed by me Assessment/Plan Assessment/Plan Cirrhosis of liver with ascites, Hypotension, Hyperkalemia, Lactic acidosis, Hyperbilirubinemia, Transaminitis, Anemia, Hyponatremia ascites, s/p paracentesis in ER (about 7 liters) suspected colitis ammonemia 12/17/2024: pt complains of some abd tenderness. CT indicates colitis, moderate to large ascites, which may need paracentesis again. however, pt is hypotensive and on vasopressors at this time started on Protonix 40mg BID started on Lactulose for hyperammonemia nephrology on board Plan discussed with: Patient, Spouse My Orders Orders - EVGENY ROBIN DO Procedure Category Date Status Time Ct Ab Pel Wo Con-No CT 01/17/25 Verified Oral Or Iv 15:07 Lactulose Oral PHA 01/17/25 Verified 18:00 Urinalysis LAB 01/17/25 Verified 15:07 Midodrine Tablet PHA 01/17/25 Verified (Proamatine Tablet) 18:00 Date of Service: Jan 17, 2025 Billing Provider: EVGENY ROBIN DO Common Visit Codes: [id number] INP/OBS CARE(HIGH) EVGENY ROBIN DO Jan 17, 2025 15:09
[2025-01-17] MEDS ORDERED: PANTOPRAZOLE 40mg/50ML NS AE 50 ML IV SCH (15:15)
[2025-01-17] MEDS: MAGNESIUM OXIDE 400 MG TAB PO SCH (15:23)
[2025-01-17] MEDS: NOREPINEPHRINE BITARTRATE 32 MG in SODIUM CHL 0.9% 218 ML IV SCH (15:51)
[2025-01-17] MEDS: FUROSEMIDE 40 MG/4 ML VIAL IV SCH (16:02)
[2025-01-17 16:25] LABS: Urine Bacteria FEW /hpf (None Seen); Urine Blood Negative /uL (Negative); Urine Clarity Clear (Clear); Urine Color Yellow (Yellow); Urine Hyaline Cast FEW /lpf (0 - 2); Urine Protein, UAD Negative (Negative); Urine Specific Gravity 1.012 (1.001-1.035); Urine Squamous Epithelial Cell FEW /hpf (<5); Urine Urobilinogen Normal (Negative); Urine WBC 1 /HPF (0-3)
--- NOTE | 2025-01-17 17:45 | DVHINCON2 ---
Date of service: Jan 17, 2025 Reason for Consultation ag History of Present Illness 64 years old male with past medical history of liver cirrhosis pulmonary alcoholism, ascites, hypertension, Chronic kidney disease who presents with chief complaints of abdominal pain,, nephrology consulted for Acute kidney injury /hyperkalemia his friend is bedside Patient received overnight bicarb IV and potassium has improved since then Past Medical History per hpi Past Surgical History per hpi Allergies: Coded Allergies: NO KNOWN ALLERGIES (Unverified , 12/20/24) Home Meds Active Scripts Ferrous Sulfate (Ferosul) 325 Mg Tab, 1 TAB PO EOD for 30 Days, #30 TAB 0 Refills Prov:CHRISTINE BUTTERFIELD MD 01/13/25 Furosemide (Furosemide) 40 Mg Tab, 1 TAB PO DAILY for 30 Days, #30 TAB 0 Refills Prov:CHRISTINE BUTTERFIELD MD 01/13/25 Lactulose (Lactulose) 10 Gm Julian, 10 GM PO BID, #120 PACK Prov:SAMAN SONI MD 12/23/24 Reported Medications Thiamine Hcl (VITAMIN B-1) 100 Mg Tb, 1 TAB PO DAILY 12/20/24 Folic Acid (Folic Acid) 1 Mg Tab, 1 TAB PO DAILY 12/20/24 Magnesium Oxide (MAGNESIUM OXIDE) 400 Mg Tab, 1 TAB PO DAILY 12/20/24 Potassium Chloride (Klor-Con 10) 10 Meq Tab, 1 TAB PO BID 12/20/24 Spironolactone (Spironolactone) 100 Mg Tab, 1 TAB PO DAILY 12/20/24 Discontinued Reported Medications Nifedipine (Nifedipine Er) 30 Mg Tab, 1 TAB PO DAILY 01/11/25 Lisinopril (Lisinopril) 20 Mg Tab, 1 TAB PO DAILY 12/20/24 Current Medications Current Medications Medications (Trade) Dose Ordered Sig/Gaston Route PRN Reason Start Time Stop Time Status Last Admin Furosemide (Lasix Injection) 20 mg BIDD IV 01/17/25 06:00 01/17/25 15:10 DC 01/17/25 05:43 Thiamine HCl 100 mg DAILY PO 01/17/25 10:00 01/17/25 09:51 Ceftriaxone Sodium 50 ml @ 100 mls/hr DAILY@09 IV 01/18/25 09:00 Magnesium Oxide (Mag-Ox Tablet) 400 mg DAILY PO 01/17/25 13:45 01/17/25 15:23 Phenylephrine HCl 80 mg/Sodium Chloride 250 ml @ 7.5 mls/hr Q24H IV 01/17/25 14:30 Norepinephrine Bitartrate 32 mg/ Sodium Chloride 250 ml @ 0.938 mls/ hr Q24H IV 01/17/25 14:30 01/17/25 15:51 Lactulose 30 ml Q6HR PO 01/17/25 18:00 Midodrine (Proamatine Tablet) 5 mg TID@0600,1200,1800 PO 01/17/25 18:00 Furosemide (Lasix Injection) 40 mg BIDD IV 01/17/25 15:16 01/17/25 16:02 Pantoprazole Sodium 50 ml @ 10 mls/hr Q5H IV 01/17/25 15:15 01/17/25 15:26 DC Pantoprazole Sodium (Protonix) 40 mg BID IV 01/17/25 22:00 Zirconium Oxide (Lokelma) 5 gm DAILY PO 01/17/25 22:00 Family History: Patient reports no known family medical history. Review of Systems per hpi H&P Exam Vital Signs/I&O Vital Sign Date Time Temp Pulse Resp B/P (MAP) Pulse Ox O2 Delivery O2 Flow Rate FiO2 01/17/25 16:30 92 19 110/62 (78) 96 01/17/25 16:00 Room Air* 0 21 01/17/25 16:00 98.0 98.0 Intake and Output 01/16/25 01/17/25 19:00 07:00 Intake Total 838.310 ml 2417.00 ml Output Total 9000 ml 1150 ml Balance -8161.690 ml 1267.00 ml Intake Oral 0 ml 400 ml IV Total 838.310 ml 2017.00 ml Output Urine Total 400 ml 1150 ml Drainage Total 8600 ml Physical Exam General-not in any distress HEENT-normocephalic, Respiratory-fair air entry bilateral, [id number] heard, no murmurs appreciated Abdominal-distended + Musculoskeletal-+ pedal edema, no calf tenderness Genitourinary-deferred Neuro-awake alert oriented x3, Psychiatric-not agitated, cooperative, Labs/Diagnostic Data Labs/Diagnostic Data Laboratory Tests Test 01/17/25 03:27 01/17/25 01:25 01/17/25 00:19 01/16/25 18:29 Range/Units White Blood Count 13.9 #H 4.4-10.8 10^3/uL Red Blood Count 3.01 L 4.5-5.90 10^6/uL Hemoglobin 10.0 L 13.5-17.5 g/dL Hematocrit 28.1 L 41.0-53.0 % Mean Corpuscular Volume 93.2 80.0-100.0 fL Mean Corpuscular Hemoglobin 33.2 H 28.0-32.0 pg Mean Corpuscular Hemoglobin Concent 35.6 32.0-36.0 g/dL Red Cell Distribution Width 14.9 H 11.8-14.3 % Platelet Count 175 140-450 10^3/uL Mean Platelet Volume 7.3 6.9-10.8 fL Neutrophils (%) (Auto) 71.7 37.0-80.0 % Lymphocytes (%) (Auto) 8.8 L 10.0-50.0 % Monocytes (%) (Auto) 18.0 H 0.0-12.0 % Eosinophils (%) (Auto) 0.9 0.0-7.0 % Basophils (%) (Auto) 0.6 0.0-2.0 % Neutrophils # (Auto) 10.0 H 1.6-8.6 10 ^3/uL Lymphocytes # (Auto) 1.2 0.4-5.4 10 ^3/uL Monocytes # (Auto) 2.5 H 0-1.3 10 ^3/uL Eosinophils # (Auto) 0.1 0-0.8 10 ^3/uL Basophils # (Auto) 0.1 0-0.2 10 ^3/uL Nucleated Red Blood Cells 0.1 % Platelet Estimate Adequate Sodium Level 129 #L 136-145 mmol/L Potassium Level 5.1 5.1 6.7 *H 3.5-5.1 mmol/L Chloride Level 98 98-107 mmol/L Carbon Dioxide Level 25 20-31 mmol/L Anion Gap 6 5-15 Blood Urea Nitrogen 33 H 9-23 mg/dL Creatinine 1.51 H 0.700-1.30 mg/dL Glomerular Filtration Rate Calc 52 >90 mL/min BUN/Creatinine Ratio 21.9 H 10.0-20.0 Serum Glucose 151 H 74-106 mg/dL Calcium Level 8.5 L 8.7-10.4 mg/dL Total Bilirubin 2.4 H 0.2-1.0 mg/dL Aspartate Amino Transferase (AST) 111 H 13-40 U/L Alanine Aminotransferase (ALT) 47 H 7-40 U/L Alkaline Phosphatase 123 H 46-116 U/L Total Protein 5.3 L 5.7-8.2 g/dL Albumin 2.5 L 3.2-4.8 g/dL Urine Color Yellow Yellow Urine Clarity Clear Clear Urine pH 5.0 5.0-9.0 Urine Specific [place] 1.012 1.001-1.035 Urine Protein Negative Negative Urine Ketones Negative Negative Urine Blood Negative Negative /uL Urine Nitrite Negative Negative Urine Bilirubin Negative Negative Urine Urobilinogen Normal Negative mg/dL Urine Leukocyte Esterase Negative Negative /uL Urine RBC 1 0 - 3 /hpf Urine Microscopic WBC 1 0-3 /HPF Urine Squamous Epithelial Cells Few <5 /hpf Urine Bacteria Few H None Seen /hpf Urine Hyaline Casts Few 0 - 2 /lpf Urine Sodium 26 L 40-220 mmol/L Urine Glucose Normal Normal mg/dL Magnesium Level 1.7 2.0 1.6-2.6 mg/dL Lactic Acid Level 4.3 *H 0.4-2.0 mmol/L Ammonia 56 H 11-32 umol/L Test 01/16/25 09:35 01/16/25 08:30 01/16/25 07:55 01/16/25 06:37 Range/Units Troponin I High Sensitivity 22 21 23 </=54 ng/L Lactic Acid Level 3.3 *H 3.0 *H 0.4-2.0 mmol/L Sodium Level 124 L 136-145 mmol/L Potassium Level 6.2 *H 3.5-5.1 mmol/L Chloride Level 99 98-107 mmol/L Carbon Dioxide Level 17 L 20-31 mmol/L Anion Gap 8 5-15 Blood Urea Nitrogen 30 H 9-23 mg/dL Creatinine 2.10 H 0.700-1.30 mg/dL Glomerular Filtration Rate Calc 35 >90 mL/min BUN/Creatinine Ratio 14.3 10.0-20.0 Serum Glucose 106 74-106 mg/dL Calcium Level 8.7 8.7-10.4 mg/dL Test 01/16/25 01:04 Range/Units White Blood Count 6.0 4.4-10.8 10^3/uL Red Blood Count 2.82 L 4.5-5.90 10^6/uL Hemoglobin 9.3 L 13.5-17.5 g/dL Hematocrit 26.5 L 41.0-53.0 % Mean Corpuscular Volume 94.1 80.0-100.0 fL Mean Corpuscular Hemoglobin 33.1 H 28.0-32.0 pg Mean Corpuscular Hemoglobin Concent 35.2 32.0-36.0 g/dL Red Cell Distribution Width 14.6 H 11.8-14.3 % Platelet Count 201 140-450 10^3/uL Mean Platelet Volume 7.0 6.9-10.8 fL Neutrophils (%) (Auto) 61.9 37.0-80.0 % Lymphocytes (%) (Auto) 16.2 10.0-50.0 % Monocytes (%) (Auto) 18.6 H 0.0-12.0 % Eosinophils (%) (Auto) 2.0 0.0-7.0 % Basophils (%) (Auto) 1.3 0.0-2.0 % Neutrophils # (Auto) 3.7 1.6-8.6 10 ^3/uL Lymphocytes # (Auto) 1.0 0.4-5.4 10 ^3/uL Monocytes # (Auto) 1.1 0-1.3 10 ^3/uL Eosinophils # (Auto) 0.1 0-0.8 10 ^3/uL Basophils # (Auto) 0.1 0-0.2 10 ^3/uL Nucleated Red Blood Cells 0.1 % Prothrombin Time 15.5 H 9.3-11.8 sec Prothrombin Time INR 1.52 H 0.9-1.15 Activated Partial Thromboplast Time 36.2 H 24.5-34.5 SEC Sodium Level 126 #L 136-145 mmol/L Potassium Level 5.5 H 3.5-5.1 mmol/L Chloride Level 100 98-107 mmol/L Carbon Dioxide Level 23 20-31 mmol/L Anion Gap 3 L 5-15 Blood Urea Nitrogen 33 H 9-23 mg/dL Creatinine 1.89 H 0.700-1.30 mg/dL Glomerular Filtration Rate Calc 39 >90 mL/min BUN/Creatinine Ratio 17.5 10.0-20.0 Serum Glucose 111 H 74-106 mg/dL Calcium Level 8.3 L 8.7-10.4 mg/dL Total Bilirubin 1.8 H 0.2-1.0 mg/dL Aspartate Amino Transferase (AST) 112 H 13-40 U/L Alanine Aminotransferase (ALT) 52 H 7-40 U/L Alkaline Phosphatase 147 H 46-116 U/L Ammonia 19 11-32 umol/L Total Protein 5.5 L 5.7-8.2 g/dL Albumin 2.4 L 3.2-4.8 g/dL Microbiology Date/Time Source Procedure Growth Status 01/16/25 17:00 Nose MRSA Screen - Final Complete Assessment Acute kidney injury secondary to hypotension Hyperkalemia slightly secondary to spironolactone and Acute kidney injury Decompensated liver cirrhosis Anemia Recommendations Medical management of hyperkalemia Potassium better Continue diuretics Renal function better Avoid hypotension If patient goes back to taking spironolactone as outpatient he should be on potassium binder Plan discussed with: Patient VAL BENÍTEZ MD Jan 17, 2025 17:44
--- NOTE | 2025-01-17 18:04 | DVH ---
Exam: CT CT AB PEL WO CON-NO ORAL OR IV History: abd pain Comparison Study: 11/28/2024 TECHNIQUE: Multidetector CT of the abdomen and pelvis without IV contrast. Axial, coronal and sagitta l multiplanar reformats were obtained from the axial data set by the technologist. Radiation Dose Information: CT Dose: CTDI volume is 20.28 mGy. Dose-length product is 1410.5 mGy*cm FINDINGS: Trace bilateral pleural effusions with bibasilar atelectasis and right basilar patchy consolidation. Mild cardiomegaly with trace pericardial effusion. Moderate to large volume ascites. No evidence of intraperitoneal free air. Cirrhotic appearing liver. Recanalization of the umbilical vein with upper abdominal varices. Spleen, and adrenal glands unremarkable. Limited evaluation for pancreas acute pancreatitis ascites. No evid ence of cholelithiasis. Limited evaluation for acute cholecystitis given ascites. Kidneys, ureters and urinary bladder unremarkable. Prostate is unremarkable. Mild gastric wall thickening. Mild wall thickening of proximal small bowel loops which may be due to inadequate distention. The remainder of the small bowel loops unremarkable. Appendix is not well-vis ualized. Wall thickening of the ascending colon and proximal transverse colon. Moderate amount of fec al material within the colon total wall thickening. No evidence of aortic aneurysm. [id number] atherosclerotic calcification of the aorta and bila teral iliacs. No significant lymphadenopathy. Tiny fat containing umbilical hernia. Mild body wall edema. Small right with moderate left-sided ingu inal hernias with large amount of free fluid within the left inguinal hernia no destructive osseous l esions noted. Right femoral approach central venous catheter terminating over the right external homar c artery. IMPRESSION: Trace bilateral pleural effusion with bibasilar atelectasis right basilar pneumonia. Moderate to large volume ascites. Liver cirrhosis. Wall thickening of the ascending colon, proximal transverse colon and rectum which may be due to coli tis versus portal hypertensive colopathy or may be from the surrounding ascites. Moderate amount of fecal material within the colon. Mild wall thickening of the stomach and proximal small bowel loops which may be due to inadequate dis tention with gastroenteritis not excluded. Body wall edema. Additional findings as above.
[2025-01-17] MEDS: LACTULOSE 20Gm/30ML SOLN PO SCH (18:30)
[2025-01-17] MEDS: MIDODRINE HCL 10 MG TAB PO SCH (18:31)
[2025-01-17] MEDS: SODIUM ZIRCONIUM CYCL 10 GM PAK PO SCH (22:38)
[2025-01-17] MEDS: metroNIDAZOLE 500MG/100ML 100 ML IV SCH (22:38)
[2025-01-17] MEDS: PANTOPRAZOLE 40 MG/10 ML VIAL INJ IV SCH (22:42)
[2025-01-18] VITALS (99 sets, daily range): BP systolic 75–126; BP diastolic 43–76; PULSE 65–122; RESP 11–42; TEMP 97.6–98.9; O2SAT 92–98
[2025-01-18 03:57] LABS: Basophils # (auto) 0.2 10 ^3/uL (0-0.2); Basophils % (auto) 1.5 % (0.0-2.0); Eosinophils # (auto) 0.2 10 ^3/uL (0-0.8); Eosinophils % (auto) 1.8 % (0.0-7.0); Hematocrit 29.1 % (41.0-53.0); Hemoglobin 10.1 g/dL (13.5-17.5); Lymphocytes # (auto) 1.1 10 ^3/uL (0.4-5.4); Lymphocytes % (auto) 11.2 % (10.0-50.0); Mean Corpuscular Hemoglobin 32.4 pg (28.0-32.0); Mean Corpuscular Hgb Conc. 34.8 g/dL (32.0-36.0); Mean Corpuscular Volume 93.2 fL (80.0-100.0); Monocytes # (auto) 1.4 10 ^3/uL (0-1.3); Neutrophils % (auto) 71.5 % (37.0-80.0); Platelet Count (auto) 166 10^3/uL (140-450); Red Blood Cells 3.12 10^6/uL (4.5-5.90); Red Cell Distribution Width 15.1 % (11.8-14.3); White Blood Cell 9.7 10^3/uL (4.4-10.8)
[2025-01-18 04:51] LABS: Anion Gap 4 (5-15); BUN/Creatinine Ratio 26.4 (10.0-20.0); Carbon Dioxide 26 mmol/L (20-31); Potassium 4.1 mmol/L (3.5-5.1)
[2025-01-18 04:54] LABS: Chloride 98 mmol/L (98-107); Sodium 128 mmol/L (136-145)
[2025-01-18 04:55] LABS: Alanine Aminotransferase 46 U/L (7-40); Albumin 2.4 g/dL (3.2-4.8); Alkaline Phosphatase 129 U/L (46-116); Aspartate Aminotransferase 104 U/L (13-40); Bilirubin, Total 2.7 mg/dL (0.2-1.0); Blood Urea Nitrogen 29 mg/dL (9-23); Calcium 8.1 mg/dL (8.7-10.4); Glucose 171 mg/dL (74-106); Total Protein 5.2 g/dL (5.7-8.2)
[2025-01-18] MEDS: cefTRIAXone 1GM/50ML D5W 50 ML IV SCH (08:54)
[2025-01-18] MEDS ORDERED: SODIUM ZIRCONIUM CYCL 10 GM PAK PO ONE (10:00)
--- NOTE | 2025-01-18 11:03 | DVHPN2 ---
Progress Note Date Seen: Jan 18, 2025 Medical Necessity Reason Pt with a Central, PICC or Fol: Yes Subjective Patient reports: No new complaints Review of Systems: Deferred Objective vital signs Vital Sign Date Time Temp Pulse Resp B/P (MAP) Pulse Ox O2 Delivery O2 Flow Rate FiO2 01/18/25 08:00 13 96 Room Air* 0 21 01/18/25 06:45 90 114/71 (85) 01/18/25 04:00 98.9 98.9 Total Intake and Output 01/17/25 01/17/25 01/18/25 15:00 23:00 07:00 Intake Total 808.75 ml 597.504 ml 653.127 ml Output Total 1000 ml 800 ml Balance 808.75 ml -402.496 ml -146.873 ml medications Current Medications Medications Dose Ordered Sig/Gaston Route Start Time Stop Time Status Last Admin Dose Admin Acetaminophen/ Hydrocodone Bitart 1 tab Q4HP PRN PO 01/16/25 14:30 01/17/25 20:31 1 TAB Ondansetron HCl 4 mg Q4HP PRN IV 01/16/25 14:30 Docusate Sodium 100 mg BIDPRN PRN PO 01/16/25 14:30 01/17/25 08:00 100 MG Acetaminophen 650 mg Q6HP PRN PO 01/16/25 14:30 Nitroglycerin 0.4 mg Q5MINP PRN SL 01/16/25 14:30 Morphine Sulfate 2 mg Q30M PRN IV 01/16/25 14:30 Thiamine HCl 100 mg DAILY PO 01/17/25 10:00 01/18/25 10:22 100 MG Ceftriaxone Sodium 50 ml @ 100 mls/hr DAILY@09 IV 01/18/25 09:00 01/18/25 08:54 100 MLS/HR Magnesium Oxide 400 mg DAILY PO 01/17/25 13:45 01/18/25 10:22 400 MG Phenylephrine HCl 80 mg/Sodium Chloride 250 ml @ 7.5 mls/hr Q24H IV 01/17/25 14:30 Norepinephrine Bitartrate 32 mg/ Sodium Chloride 250 ml @ 0.938 mls/ hr Q24H IV 01/17/25 14:30 01/18/25 08:00 7.5 MLS/HR Lactulose 30 ml Q6HR PO 01/17/25 18:00 01/18/25 06:06 30 ML Midodrine 5 mg TID@0600,1200,1800 PO 01/17/25 18:00 01/18/25 06:06 5 MG Furosemide 40 mg BIDD IV 01/17/25 15:16 01/18/25 06:11 40 MG Pantoprazole Sodium 40 mg BID IV 01/17/25 22:00 01/18/25 10:22 40 MG Zirconium Oxide 5 gm DAILY PO 01/17/25 22:00 01/17/25 22:38 5 GM Metronidazole 100 ml @ 100 mls/hr Q8HR IV 01/17/25 22:00 01/18/25 06:10 100 MLS/HR laboratory and microbiology Laboratory Tests 01/18/25 03:30 Test 01/18/25 03:30 Range/Units Serum Glucose 171 H 74-106 mg/dL Microbiology Date/Time Source Procedure Growth Status 01/16/25 17:00 Nose MRSA Screen - Final Complete 01/16/25 06:36 Blood Blood Culture - Preliminary NO GROWTH AFTER 48 HOURS OF INCUBATION. Resulted Problem List/Assessment/Plan Problem List/Assessment/Plan Acute kidney injury secondary to hypotension Hyperkalemia slightly secondary to spironolactone and Acute kidney injury Decompensated liver cirrhosis Hyponatremia secondary to liver cirrhosis Anemia recs Renal function improved, hyperkalemia improved Maintain fluid restriction Defer cirrhosis management to primary team I will sign off this case please reconsult if needed Plan discussed with: Patient My Orders My Orders Orders - VAL BENÍTEZ MD Procedure Category Date Status Time Magnesium Oxide PHA 01/17/25 In Process Tablet (Mag-Ox Tablet) 13:45 Sodium Chl 0.9% PHA 01/17/25 In Process (Ns... 14:30 Sodium Chl 0.9% PHA 01/17/25 In Process (Ns... 14:30 VAL BENÍTEZ MD Jan 18, 2025 11:03
--- NOTE | 2025-01-18 18:11 | DVHINCON2 ---
Date of service: Jan 18, 2025 Referring Physician Scooby Medina Reason for Consultation Cirrhosis and ascites History of Present Illness 64 years old male with past medical history of liver cirrhosis ; alcoholism, ascites, hypertension, chronic kidney disease who presents with chief complaints of abdominal pain,, nephrology consulted for Acute kidney injury /hyperkalemia resolving. Mild persistent elevation in liver enzymes Past Medical History Cirrhosis Alcohol abuse quit one year ago Family History: Patient reports no known family medical history. Allergies: Coded Allergies: NO KNOWN ALLERGIES (Unverified , 12/20/24) Home Meds Active Scripts Ferrous Sulfate (Ferosul) 325 Mg Tab, 1 TAB PO EOD for 30 Days, #30 TAB 0 Refills Prov:CHRISTINE BUTTERFIELD MD 01/13/25 Furosemide (Furosemide) 40 Mg Tab, 1 TAB PO DAILY for 30 Days, #30 TAB 0 Refills Prov:CHRISTINE BUTTERFIELD MD 01/13/25 Lactulose (Lactulose) 10 Gm Julian, 10 GM PO BID, #120 PACK Prov:SAMAN SONI MD 12/23/24 Reported Medications Thiamine Hcl (VITAMIN B-1) 100 Mg Tb, 1 TAB PO DAILY 12/20/24 Folic Acid (Folic Acid) 1 Mg Tab, 1 TAB PO DAILY 12/20/24 Magnesium Oxide (MAGNESIUM OXIDE) 400 Mg Tab, 1 TAB PO DAILY 12/20/24 Potassium Chloride (Klor-Con 10) 10 Meq Tab, 1 TAB PO BID 12/20/24 Spironolactone (Spironolactone) 100 Mg Tab, 1 TAB PO DAILY 12/20/24 Discontinued Reported Medications Nifedipine (Nifedipine Er) 30 Mg Tab, 1 TAB PO DAILY 01/11/25 Lisinopril (Lisinopril) 20 Mg Tab, 1 TAB PO DAILY 12/20/24 Current Medications Current Medications Medications (Trade) Dose Ordered Sig/Gaston Route PRN Reason Start Time Stop Time Status Last Admin Ceftriaxone Sodium 50 ml @ 100 mls/hr DAILY@09 IV 01/18/25 09:00 01/18/25 08:54 Lactulose 30 ml Q6HR PO 01/17/25 18:00 01/18/25 13:33 DC 01/18/25 06:06 Midodrine (Proamatine Tablet) 5 mg TID@0600,1200,1800 PO 01/17/25 18:00 01/18/25 17:51 Pantoprazole Sodium (Protonix) 40 mg BID IV 01/17/25 22:00 01/18/25 10:22 Zirconium Oxide (Lokelma) 5 gm DAILY PO 01/17/25 22:00 01/17/25 22:38 Metronidazole 100 ml @ 100 mls/hr Q8HR IV 01/17/25 22:00 01/18/25 14:53 Lactulose 30 ml BIDPRN PRN PO FOR CONSTIPATION 01/18/25 13:45 Vital Signs Vital Signs Date Time Temp Pulse Resp B/P (MAP) Pulse Ox O2 Delivery O2 Flow Rate FiO2 01/18/25 17:50 101/62 01/18/25 16:45 92 16 96 01/18/25 16:00 Room Air* 0 21 01/18/25 16:00 98.3 98.3 Physical Exam General-not in any distress HEENT-normocephalic, Respiratory-fair air entry bilateral, [id number] heard, no murmurs appreciated Abdominal-distended + Musculoskeletal-+ pedal edema, no calf tenderness Genitourinary-deferred Neuro-awake alert oriented x3, Psychiatric-not agitated, cooperative, Labs/Diagnostic Data Labs Test 01/18/25 14:45 01/18/25 03:30 01/17/25 03:27 01/17/25 01:25 Range/Units Ammonia 31 11-32 umol/L White Blood Count 9.7 # 4.4-10.8 10^3/uL Red Blood Count 3.12 L 4.5-5.90 10^6/uL Hemoglobin 10.1 L 13.5-17.5 g/dL Hematocrit 29.1 L 41.0-53.0 % Mean Corpuscular Volume 93.2 80.0-100.0 fL Mean Corpuscular Hemoglobin 32.4 H 28.0-32.0 pg Mean Corpuscular Hemoglobin Concent 34.8 32.0-36.0 g/dL Red Cell Distribution Width 15.1 H 11.8-14.3 % Platelet Count 166 140-450 10^3/uL Mean Platelet Volume 6.9 6.9-10.8 fL Neutrophils (%) (Auto) 71.5 37.0-80.0 % Lymphocytes (%) (Auto) 11.2 10.0-50.0 % Monocytes (%) (Auto) 14.0 H 0.0-12.0 % Eosinophils (%) (Auto) 1.8 0.0-7.0 % Basophils (%) (Auto) 1.5 0.0-2.0 % Neutrophils # (Auto) 7.0 1.6-8.6 10 ^3/uL Lymphocytes # (Auto) 1.1 0.4-5.4 10 ^3/uL Monocytes # (Auto) 1.4 H 0-1.3 10 ^3/uL Eosinophils # (Auto) 0.2 0-0.8 10 ^3/uL Basophils # (Auto) 0.2 0-0.2 10 ^3/uL Nucleated Red Blood Cells 0.0 % Sodium Level 128 L 136-145 mmol/L Potassium Level 4.1 3.5-5.1 mmol/L Chloride Level 98 98-107 mmol/L Carbon Dioxide Level 26 20-31 mmol/L Anion Gap 4 L 5-15 Blood Urea Nitrogen 29 H 9-23 mg/dL Creatinine 1.10 0.700-1.30 mg/dL Glomerular Filtration Rate Calc 75 >90 mL/min BUN/Creatinine Ratio 26.4 H 10.0-20.0 Serum Glucose 171 H 74-106 mg/dL Calcium Level 8.1 L 8.7-10.4 mg/dL Total Bilirubin 2.7 H 0.2-1.0 mg/dL Aspartate Amino Transferase (AST) 104 H 13-40 U/L Alanine Aminotransferase (ALT) 46 H 7-40 U/L Alkaline Phosphatase 129 H 46-116 U/L Total Protein 5.2 L 5.7-8.2 g/dL Albumin 2.4 L 3.2-4.8 g/dL Platelet Estimate Adequate Urine Color Yellow Yellow Urine Clarity Clear Clear Urine pH 5.0 5.0-9.0 Urine Specific [place] 1.012 1.001-1.035 Urine Protein Negative Negative Urine Ketones Negative Negative Urine Blood Negative Negative /uL Urine Nitrite Negative Negative Urine Bilirubin Negative Negative Urine Urobilinogen Normal Negative mg/dL Urine Leukocyte Esterase Negative Negative /uL Urine RBC 1 0 - 3 /hpf Urine Microscopic WBC 1 0-3 /HPF Urine Squamous Epithelial Cells Few <5 /hpf Urine Bacteria Few H None Seen /hpf Urine Hyaline Casts Few 0 - 2 /lpf Urine Sodium 26 L 40-220 mmol/L Urine Glucose Normal Normal mg/dL Test 01/17/25 00:19 01/16/25 18:29 01/16/25 09:35 01/16/25 01:04 Range/Units Magnesium Level 1.7 1.6-2.6 mg/dL Lactic Acid Level 4.3 *H 0.4-2.0 mmol/L Troponin I High Sensitivity 22 </=54 ng/L Prothrombin Time 15.5 H 9.3-11.8 sec Prothrombin Time INR 1.52 H 0.9-1.15 Activated Partial Thromboplast Time 36.2 H 24.5-34.5 SEC Microbiology Date/Time Source Procedure Growth Status 01/16/25 17:00 Nose MRSA Screen - Final Complete 01/16/25 06:36 Blood Blood Culture - Preliminary NO GROWTH AFTER 48 HOURS OF INCUBATION. Resulted CT SCAN ABD PELVIS IMPRESSION: Trace bilateral pleural effusion with bibasilar atelectasis right basilar pneumonia. Moderate to large volume ascites. Liver cirrhosis. Wall thickening of the ascending colon, proximal transverse colon and rectum which may be due to colitis versus portal hypertensive colopathy or may be from the surrounding ascites. Moderate amount of fecal material within the colon. Mild wall thickening of the stomach and proximal small bowel loops which may be due to inadequate distention with gastroenteritis not excluded. Body wall edema. Problems(with codes): (1) Cirrhosis of liver with ascites (2) Elevated liver enzymes (3) Coagulopathy (4) Hepatic encephalopathy Plan/Recommendation A/P Cirrhosis of liver with ascites s/p paracentesis; 7 l removed, no evidence of SBP Hypotension, Hyperkalemia, Lactic acidosis, Hyperbilirubinemia, Transaminitis, Anemia, Hyponatremia Meld score 23 point, predictive of 19.6% three-month mortality [facility] discrimination function is 22 point suggestive of good prognosis Intestinal wall thichening likely related to ascites fluid overload and colonic wall edema No clinical symptoms of colitis Lactulose 30 mL p.o. daily Correct coagulopathy Monitor labs I will follow up patient with you oral fluid restriction to 1 L per day to correct hyponatremia Plan discussed with: Patient, Other GABRIELLA MAZARIEGOS MD Jan 18, 2025 18:11
[2025-01-19] VITALS (101 sets, daily range): BP systolic 77–119; BP diastolic 35–76; PULSE 66–117; RESP 8–24; TEMP 97.9–98.9; O2SAT 92–99
[2025-01-19 04:08] LABS: Hematocrit 29.1 % (41.0-53.0); Hemoglobin 10.1 g/dL (13.5-17.5); Mean Corpuscular Hgb Conc. 34.7 g/dL (32.0-36.0); Mean Corpuscular Volume 92.2 fL (80.0-100.0); Platelet Count (auto) 162 10^3/uL (140-450); Red Blood Cells 3.16 10^6/uL (4.5-5.90); Red Cell Distribution Width 15.2 % (11.8-14.3); White Blood Cell 8.6 10^3/uL (4.4-10.8)
[2025-01-19 04:13] LABS: Basophils % (manual) 0 (0.0-2.0); Blast Cells 0; Metamyelocytes % 0; Promyelocytes % 0; Reactive Lymphocytes 0
[2025-01-19 04:35] LABS: Alanine Aminotransferase 39 U/L (7-40); Albumin 2.2 g/dL (3.2-4.8); Alkaline Phosphatase 129 U/L (46-116); Anion Gap 7 (5-15); Aspartate Aminotransferase 88 U/L (13-40); BUN/Creatinine Ratio 27.1 (10.0-20.0); Blood Urea Nitrogen 26 mg/dL (9-23); Calcium 7.8 mg/dL (8.7-10.4); Carbon Dioxide 27 mmol/L (20-31); Chloride 95 mmol/L (98-107); Glucose 115 mg/dL (74-106); Sodium 129 mmol/L (136-145)
[2025-01-19 04:36] LABS: Bilirubin, Total 2.8 mg/dL (0.2-1.0)
[2025-01-19 05:22] LABS: Band Neutrophils % (manual) 2; Eosinophils % (manual) 3 (0-7); Lymphocytes % (manual) 27 (10.0-50.0); Monocytes % (manual) 15 (0-12); Myelocytes % 1
[2025-01-19 05:24] LABS: Platelet Estimate Adequate
[2025-01-19 05:27] LABS: Anisocytosis Slight; Large Platelets FEW
[2025-01-19] MEDS: LACTULOSE 20Gm/30ML SOLN PO PRN (06:00)
[2025-01-19] MEDS: ALBUMIN 25% 50 ML IV SCH (08:52)
--- NOTE | 2025-01-19 10:53 | DVHPN2 ---
Reviewed: Care Plan, H&P, Labs, Medications, Previous Orders, Radiology Changes from previous H/P or p: No Changes General: Per HPI Eyes: No Pain, No Vision change, No Conjunctivae inflammation, No Eyelid inflammation, No Other, No Redness ENT: No Ear pain, No Ear discharge, No Nose pain, No Nose discharge, No Nose congestion, No Mouth pain, No Mouth swelling, No Throat pain, No Throat swelling, No Other Cardiovascular: No Chest Pain, No Palpitations, No Orthopnea, No Paroxysmal Noc. Dyspnea, No Edema, No Lt Headedness, No Other Respiratory: No Cough, No Dry; Shortness of breath; No SOB with excertion, No Wheezing, No Hemoptysis, No Pleuritic Pain, No Sputum, No Other Gastrointestinal: No Nausea, No Vomiting; Abdominal Pain; No Diarrhea, No Constipation, No Melena, No Hematochezia, No Other Genitourinary: No Dysuria, No Frequency, No Incontinence, No Hematuria, No Retention, No Other Musculoskeletal: No other, No neck pain, No shoulder pain, No arm pain, No back pain, No hand pain, No leg pain, No foot pain Skin: No Rash, No Lesions, No Jaundice, No Bruising, No Other Objective Vitals Vital Signs Date Time Temp Pulse Resp B/P (MAP) Pulse Ox O2 Delivery O2 Flow Rate FiO2 01/19/25 09:38 16 97 Room Air* 0 21 01/19/25 09:38 104 01/19/25 09:30 77/53 (61) 01/19/25 07:30 97.9 97.9 Intake/Output Intake and Output 01/19/25 07:00 Intake Total 2097.505 ml Output Total 2100 ml Balance -2.495 ml Intake Oral 1470 ml IV Total 627.505 ml Output Urine Total 2100 ml # Bowel Movements 2 General Appearance: Alert, Oriented X3, Cooperative HEENT: Atraumatic Cardiovascular: Regular rate, Normal S1, Normal S2 Abdomen: Normal bowel sounds, Soft Medications Current Medications Medications Dose Ordered Sig/Gaston Route Start Time Stop Time Status Last Admin Dose Admin Acetaminophen/ Hydrocodone Bitart 1 tab Q4HP PRN PO 01/16/25 14:30 01/17/25 20:31 1 TAB Ondansetron HCl 4 mg Q4HP PRN IV 01/16/25 14:30 Docusate Sodium 100 mg BIDPRN PRN PO 01/16/25 14:30 01/17/25 08:00 100 MG Acetaminophen 650 mg Q6HP PRN PO 01/16/25 14:30 Nitroglycerin 0.4 mg Q5MINP PRN SL 01/16/25 14:30 Morphine Sulfate 2 mg Q30M PRN IV 01/16/25 14:30 Thiamine HCl 100 mg DAILY PO 01/17/25 10:00 01/19/25 08:01 100 MG Ceftriaxone Sodium 50 ml @ 100 mls/hr DAILY@09 IV 01/18/25 09:00 01/19/25 08:01 100 MLS/HR Magnesium Oxide 400 mg DAILY PO 01/17/25 13:45 01/19/25 08:01 400 MG Phenylephrine HCl 80 mg/Sodium Chloride 250 ml @ 7.5 mls/hr Q24H IV 01/17/25 14:30 Norepinephrine Bitartrate 32 mg/ Sodium Chloride 250 ml @ 0.938 mls/ hr Q24H IV 01/17/25 14:30 01/18/25 08:00 7.5 MLS/HR Midodrine 5 mg TID@0600,1200,1800 PO 01/17/25 18:00 01/19/25 06:00 5 MG Furosemide 40 mg BIDD IV 01/17/25 15:16 01/19/25 06:00 40 MG Pantoprazole Sodium 40 mg BID IV 01/17/25 22:00 01/19/25 08:01 40 MG Zirconium Oxide 5 gm DAILY PO 01/17/25 22:00 01/19/25 08:02 5 GM Metronidazole 100 ml @ 100 mls/hr Q8HR IV 01/17/25 22:00 01/19/25 06:00 100 MLS/HR Lactulose 30 ml BIDPRN PRN PO 01/18/25 13:45 01/19/25 06:00 30 ML Albumin Human 50 ml @ 100 mls/hr DAILY IV 01/19/25 10:00 01/21/25 10:29 01/19/25 08:52 100 MLS/HR Laboratory Results Laboratory Tests 01/19/25 03:25 Chemistry Test 01/19/25 03:25 Albumin 2.2 g/dL (3.2-4.8) L Calcium Level 7.8 mg/dL (8.7-10.4) L Total Protein 5.0 g/dL (5.7-8.2) L LFT Test 01/19/25 03:25 Alanine Aminotransferase (ALT) 39 U/L (7-40) Alkaline Phosphatase 129 U/L (46-116) H Aspartate Amino Transferase (AST) 88 U/L (13-40) H Total Bilirubin 2.8 mg/dL (0.2-1.0) H Urinalysis Test 01/17/25 01:25 Urine Color Yellow (Yellow) Urine Clarity Clear (Clear) Urine pH 5.0 (5.0-9.0) Urine Specific [place] 1.012 (1.001-1.035) Urine Protein Negative (Negative) Urine Ketones Negative (Negative) Urine Blood Negative /uL (Negative) Urine Nitrite Negative (Negative) Urine Bilirubin Negative (Negative) Urine Urobilinogen Normal mg/dL (Negative) Urine Leukocyte Esterase Negative /uL (Negative) Urine RBC 1 /hpf (0 - 3) Urine Microscopic WBC 1 /HPF (0-3) Urine Squamous Epithelial Cells Few /hpf (<5) Urine Bacteria Few /hpf (None Seen) H Urine Hyaline Casts Few /lpf (0 - 2) Urine Sodium 26 mmol/L (40-220) L Urine Glucose Normal mg/dL (Normal) Microbiology Microbiology Date/Time Source Procedure Growth Status 01/16/25 17:00 Nose MRSA Screen - Final Complete 01/16/25 06:36 Blood Blood Culture - Preliminary NO GROWTH AFTER 72 HOURS OF INCUBATION. Resulted Assessment/Plan Assessment/Plan Cirrhosis of liver with ascites, Hypotension, Hyperkalemia, Lactic acidosis, Hyperbilirubinemia, Transaminitis, Anemia, Hyponatremia ascites, s/p paracentesis in ER (about 7 liters) suspected colitis ammonemia 12/17/2024: pt complains of some abd tenderness. CT indicates colitis, moderate to large ascites, which may need paracentesis again. however, pt is hypotensive and on vasopressors at this time started on Protonix 40mg BID started on Lactulose for hyperammonemia nephrology on board 12/18/2024: pt is weaning down on vasopressor, just on 1 today (Levophed) pt's abd is still distended, may need another paracentesis pt's having more diarrhea. check ammonia, if serum ammonia is 20-30, can scale back on lactulose Plan discussed with: Patient, Other (nursing) My Orders Orders - EVGENY ROBIN DO Procedure Category Date Status Time Lactulose Oral PHA 01/18/25 In Process 13:45 *Consult Dr[address] Love CONS 01/18/25 Transmitted [place] 15:48 Date of Service: Jan 18, 2025 Billing Provider: EVGENY ROBIN DO Common Visit Codes: [id number] CARE 30-74 MIN, [id number] CARE-EACH +30MIN EVGENY ROIBN DO Jan 19, 2025 10:53
--- NOTE | 2025-01-19 15:49 | DVHPN2 ---
Assessment/Plan Assessment/Plan ICU note 64 M with alcoholic cirrhosis seen today during rounds, still on levo. increase midodrine. repeat para wednesday, add albumin physical exam aox3 clear breath sounds s1 s2 rrr abdomen distended, fluid shift + no sx of hepatic encep no LE edema labs ekg imaging reviewed assessment and plan cirrhosis with ascites distributive shock hyperkalemia lactic acidosis hyperbilirubinemia transminitis anemia normocytic anemia hyponatremia ascites s/p paracentesis possible colitis ag vmn (resolved) hepatic encephalopathy? (resolved) c/w pressors maintain map >65 start midodrine 10 TID considering repeat para c/w lactulose, aim for 2-3 BM per day protonix renal consult appreciated gi consult appreciated fluid restriction condition critical prognosis poor full code dvt ppx lovenox gi ppx not indicated diet hepatic critical care time 60 minutes Plan discussed with: Patient Date of Service: Jan 19, 2025 Billing Provider: VA ALEXANDER MD Common Visit Codes: [id number] CARE 30-74 MIN VA ALEXANDER MD Jan 19, 2025 15:49
--- NOTE | 2025-01-19 17:10 | DVHPN2 ---
Progress Note - Dictate Date Seen: Jan 19, 2025 Medical Necessity Reason Pt with a Central, PICC or Fol: Yes Subjective Patient seen at bedside He is still on 10 mics of Levophed Patient feels better Abdomen is slightly more distended vital signs Vital Sign Date Time Temp Pulse Resp B/P (MAP) Pulse Ox O2 Delivery O2 Flow Rate FiO2 01/19/25 15:37 21 97 Room Air* 0 21 01/19/25 15:37 89 01/19/25 15:30 98.3 109/69 (82) 98.3 Total Intake and Output 01/18/25 01/18/25 01/19/25 15:00 23:00 07:00 Intake Total 247.813 ml 1157.251 ml 692.441 ml Output Total 1500 ml 600 ml Balance 247.813 ml -342.749 ml 92.441 ml medications Current Medications Medications Dose Ordered Sig/Gaston Route Start Time Stop Time Status Last Admin Dose Admin Acetaminophen/ Hydrocodone Bitart 1 tab Q4HP PRN PO 01/16/25 14:30 01/17/25 20:31 1 TAB Ondansetron HCl 4 mg Q4HP PRN IV 01/16/25 14:30 Docusate Sodium 100 mg BIDPRN PRN PO 01/16/25 14:30 01/17/25 08:00 100 MG Acetaminophen 650 mg Q6HP PRN PO 01/16/25 14:30 Nitroglycerin 0.4 mg Q5MINP PRN SL 01/16/25 14:30 Morphine Sulfate 2 mg Q30M PRN IV 01/16/25 14:30 Thiamine HCl 100 mg DAILY PO 01/17/25 10:00 01/19/25 08:01 100 MG Ceftriaxone Sodium 50 ml @ 100 mls/hr DAILY@09 IV 01/18/25 09:00 01/19/25 08:01 100 MLS/HR Magnesium Oxide 400 mg DAILY PO 01/17/25 13:45 01/19/25 08:01 400 MG Phenylephrine HCl 80 mg/Sodium Chloride 250 ml @ 7.5 mls/hr Q24H IV 01/17/25 14:30 Norepinephrine Bitartrate 32 mg/ Sodium Chloride 250 ml @ 0.938 mls/ hr Q24H IV 01/17/25 14:30 01/18/25 08:00 7.5 MLS/HR Furosemide 40 mg BIDD IV 01/17/25 15:16 01/19/25 06:00 40 MG Pantoprazole Sodium 40 mg BID IV 01/17/25 22:00 01/19/25 08:01 40 MG Zirconium Oxide 5 gm DAILY PO 01/17/25 22:00 01/19/25 08:02 5 GM Metronidazole 100 ml @ 100 mls/hr Q8HR IV 01/17/25 22:00 01/19/25 12:51 100 MLS/HR Albumin Human 50 ml @ 100 mls/hr DAILY IV 01/19/25 10:00 01/21/25 10:29 01/19/25 08:52 100 MLS/HR Midodrine 15 mg TID@0600,1200,1800 PO 01/19/25 18:00 Lactulose 30 ml DAILY PO 01/20/25 10:00 objective aox3 clear breath sounds s1 s2 rrr abdomen distended, fluid shift + no sx of hepatic encep no LE edema laboratory and microbiology Laboratory Tests 01/19/25 03:25 Test 01/19/25 03:25 Range/Units Serum Glucose 115 H 74-106 mg/dL Problems(with codes): (1) Hepatic encephalopathy (2) Elevated liver enzymes (3) Coagulopathy (4) Cirrhosis of liver with ascites Prognosis Plan Infuse albumin daily for three days Cut back on Levophed slowly Diet as tolerated ; oral fluid restriction Repeat paracentesis on Wednesday I will follow up patient as needed Meld score 23 point, predictive of 19.6% three-month mortality [facility] discrimination function is 22 point suggestive of good prognosis Intestinal wall thichening likely related to ascites fluid overload and colonic wall edema No clinical symptoms of colitis Lactulose 30 mL p.o. daily Correct coagulopathy Monitor labs I will follow up patient with you oral fluid restriction to 1.5 L per day to correct hyponatremia Dietary Evaluation Review Comments: 1. Agree with 2 gm Na diet, 1 L fluid/day per nephrology 2. Encourage good oral intakes >75% of meals, snacks PRN 3. May consider Ensure Enlive 1x/day to enhance caloric and protein intake if within fluid restriction limitations (provides 350 kcal, 20 gm pro, 237 ml fluid) Expected Outcomes/Goals: Adequate nutrition, improved lab values. Plan discussed with: Patient, Other (Nurse) GABRIELLA MAZARIEGOS MD Jan 19, 2025 17:10
[2025-01-19] MEDS: MIDODRINE HCL 10 MG TAB PO SCH (17:20)
[2025-01-20] VITALS (98 sets, daily range): BP systolic 83–122; BP diastolic 39–72; PULSE 65–106; RESP 12–25; TEMP 97.8–98.7; O2SAT 93–99
[2025-01-20 04:16] LABS: Hematocrit 28.8 % (41.0-53.0); Mean Corpuscular Hemoglobin 32.1 pg (28.0-32.0); Mean Corpuscular Hgb Conc. 34.7 g/dL (32.0-36.0); Mean Corpuscular Volume 92.5 fL (80.0-100.0); Platelet Count (auto) 157 10^3/uL (140-450); Red Blood Cells 3.11 10^6/uL (4.5-5.90); Red Cell Distribution Width 15.2 % (11.8-14.3); White Blood Cell 6.6 10^3/uL (4.4-10.8)
[2025-01-20 04:18] LABS: Band Neutrophils % (manual) 0; Basophils % (manual) 0 (0.0-2.0); Blast Cells 0; Metamyelocytes % 0; Myelocytes % 0; Promyelocytes % 0; Reactive Lymphocytes 0
[2025-01-20 04:32] LABS: Alanine Aminotransferase 35 U/L (7-40); Alkaline Phosphatase 117 U/L (46-116); Anion Gap 4 (5-15); Aspartate Aminotransferase 80 U/L (13-40); BUN/Creatinine Ratio 23.4 (10.0-20.0); Blood Urea Nitrogen 22 mg/dL (9-23); Calcium 7.8 mg/dL (8.7-10.4); Carbon Dioxide 28 mmol/L (20-31); Chloride 98 mmol/L (98-107); Glucose 111 mg/dL (74-106); Phosphorus 2.9 mg/dL (2.4-5.1); Potassium 3.6 mmol/L (3.5-5.1); Sodium 130 mmol/L (136-145)
[2025-01-20 04:33] LABS: Albumin 2.3 g/dL (3.2-4.8); Bilirubin, Total 2.9 mg/dL (0.2-1.0); Magnesium 1.5 mg/dL (1.6-2.6)
[2025-01-20 04:49] LABS: Eosinophils % (manual) 4 (0-7); Lymphocytes % (manual) 32 (10.0-50.0); Monocytes % (manual) 10 (0-12); Platelet Estimate Adequate
[2025-01-20] MEDS: MAGNESIUM SULFATE 1GM/100ML 100 ML IV SCH (05:32)
[2025-01-20] MEDS: LACTULOSE 20Gm/30ML SOLN PO SCH (07:59)
--- NOTE | 2025-01-20 08:41 | MEDREC ---
[facility] ASP Intervention Section I [facility] ASP Intervention: Review courses of therapy (Patient is afebrile and WBC is WNL. Per Dr. Villafana's note (01/19), 'No clinical symptoms of colitis'. Please consider the use of antibiotics in the lack of evidence of colitis.) HENRRY LOPEZ [facility] Jan 20, 2025 08:41
--- NOTE | 2025-01-20 10:37 | DVHPN2 ---
Assessment/Plan Assessment/Plan ICU note 64 M with alcoholic cirrhosis seen today during rounds, still on levo. planned para on wednesday. on albumin physical exam aox3 clear breath sounds s1 s2 rrr abdomen distended, fluid shift + no sx of hepatic encep no LE edema labs ekg imaging reviewed assessment and plan cirrhosis with ascites distributive shock hyperkalemia lactic acidosis hyperbilirubinemia transminitis anemia normocytic anemia hyponatremia ascites s/p paracentesis possible colitis ag vmn (resolved) hepatic encephalopathy? (resolved) c/w pressors maintain map >65 start midodrine 10 TID considering repeat para c/w lactulose, aim for 2-3 BM per day protonix renal consult appreciated gi consult appreciated fluid restriction albumin condition critical prognosis poor full code dvt ppx lovenox gi ppx not indicated diet hepatic critical care time 50 minutes Plan discussed with: Patient My Orders Orders - VA ALEXANDER MD Procedure Category Date Status Time Midodrine Tablet PHA 01/19/25 In Process (Proamatine Tablet) 18:00 Lactulose Oral PHA 01/20/25 In Process 10:00 Date of Service: Jan 20, 2025 Billing Provider: VA ALEXANDER MD Common Visit Codes: [id number] CARE 30-74 MIN VA ALEXANDER MD Jan 20, 2025 10:37
--- NOTE | 2025-01-20 11:24 | ECG ---
[facility] Test Date: 2025-01-16 Test Time: 20:34:19 Pat Name: PASTOR MCNEILL Department: icu Room: [address] [place] [address] A Gender: M [employer]: kelly : 1960 Requested By: WILLIAM HERNADEZ Order Number: [id number] Reading MD: Ghanshyam Addison Measurements Intervals [place] Rate: 92 P: 24 MA: 139 QRS: 3 QRSD: 99 T: 7 QT: 366 QTc: 453 Interpretive Statements Sinus rhythm Baseline wander in lead(s) V1 Electronically Signed On 01-20-2025 17:17:29 PDT by Ghanshyam Addison Please click the below link to view image of tracing.
[2025-01-20] MEDS: MAGNESIUM SULFATE 1GM/100ML 100 ML IV ONE (12:06)
[2025-01-20 15:09] LABS: Anion Gap 6 (5-15); Carbon Dioxide 28 mmol/L (20-31)
[2025-01-20 15:10] LABS: Chloride 96 mmol/L (98-107); Potassium 3.4 mmol/L (3.5-5.1); Sodium 130 mmol/L (136-145)
[2025-01-20 15:15] LABS: BUN/Creatinine Ratio 20.8 (10.0-20.0); Blood Urea Nitrogen 20 mg/dL (9-23); Glucose 127 mg/dL (74-106)
[2025-01-20] MEDS ORDERED: POTASSIUM CHL 20MEQ/100ML 100 ML IV ONE (16:00)
[2025-01-20] MEDS: POTASSIUM CHL 20MEQ/50ML 50 ML IV ONE (16:49)
--- NOTE | 2025-01-20 20:12 | DVHINCON2 ---
Date of service: Jan 20, 2025 Referring Physician Graham Hernandez MD Reason for Consultation Ascites History of Present Illness A 64-year-old man with past medical history of liver cirrhosis, alcohol abuse, ascites, and hypertension who presented to ED on 01/16/25 with complaints of abdominal pain. Patient reported he gets paracentesis about every week. He has been working with his primary care provider and his liver specialist to try and get the paracentesis scheduled as an outpatient. Patient was admitted for further care and pulmonary consultation is requested for evaluation and management due to the above findings. Review of Systems: 14-point review of systems negative unless otherwise noted above. Past Medical History: Liver cirrhosis, hx of alcohol abuse, ascites, and hypertension Past Surgical History: Paracenteses Medications: Reviewed. Allergies: No known drug allergies. Family History: No family history of premature CAD. No family history of lung disorders. Social History: Nonsmoker. Hx of alcohol abuse, quit one year ago No illicit drug use. Family History: Patient reports no known family medical history. Allergies: Coded Allergies: NO KNOWN ALLERGIES (Unverified , 12/20/24) Home Meds Active Scripts Spironolactone (Spironolactone) 100 Mg Tab, 1 TAB PO DAILY for 90 Days, #90 TAB 1 Refill Prov:GRAHAM HERNANDEZ MD 01/29/25 Midodrine HCl (Midodrine Hydrochloride) 5 Mg Tab, 15 MG PO TID for 30 Days, #270 TAB Prov:GRAHAM HERNANDEZ MD 01/29/25 Lactulose (Lactulose) 10 Gm/15 Ml Paola, 30 ML PO DAILY for 90 Days, #1200 ML Prov:GRAHAM HERNANDEZ MD 01/29/25 Hydrocortisone Base (CORTEF) 10 Mg Tab, 40 MG PO Q6HR for 10 Days, #160 TAB take 3 tablets every 6 hours for 2 days, followed by 2 tablets every 8 hours for 2 days, followed by 2 tablet every 12 hours for 2 days, followed by 2 tablets in the morning and 1 tablet at night for 2 days Prov:GRAHMA HERNANDEZ MD 01/29/25 Hydrocodone-Acetaminophen (Hydrocodone Bitartrate/AC 5-325 mg) 1 Tab Tab, 1 TAB PO Q6HPRN PRN for 7 Days, #28 TAB Prov:GRAHAM HERNANDEZ MD 01/29/25 Furosemide (Furosemide) 40 Mg Tab, 1 TAB PO DAILY for 90 Days, #90 TAB 1 Refill Prov:GRAHAM HERNANDEZ MD 01/29/25 Discontinued Reported Medications Thiamine Hcl (VITAMIN B-1) 100 Mg Tb, 1 TAB PO DAILY 12/20/24 Folic Acid (Folic Acid) 1 Mg Tab, 1 TAB PO DAILY 12/20/24 Magnesium Oxide (MAGNESIUM OXIDE) 400 Mg Tab, 1 TAB PO DAILY 12/20/24 Potassium Chloride (Klor-Con 10) 10 Meq Tab, 1 TAB PO BID 12/20/24 Spironolactone (Spironolactone) 100 Mg Tab, 1 TAB PO DAILY 12/20/24 Discontinued Scripts Ferrous Sulfate (Ferosul) 325 Mg Tab, 1 TAB PO EOD for 30 Days, #30 TAB 0 Refills Prov:CHRISTINE BUTTERFIELD MD 01/13/25 Furosemide (Furosemide) 40 Mg Tab, 1 TAB PO DAILY for 30 Days, #30 TAB 0 Refills Prov:CHRISTINE BUTTERFIELD MD 01/13/25 Lactulose (Lactulose) 10 Gm Julian, 10 GM PO BID, #120 PACK Prov:SAMAN SONI MD 12/23/24 Current Medications Current Medications Medications (Trade) Dose Ordered Sig/Gaston Route PRN Reason Start Time Stop Time Status Last Admin Lactulose 30 ml DAILY PO 01/20/25 10:00 01/20/25 07:59 Magnesium Sulfate/ Dextrose 100 ml @ 100 mls/hr Q1HR IV 01/20/25 06:00 01/20/25 07:59 DC 01/20/25 06:22 Vital Signs Vital Signs Date Time Temp Pulse Resp B/P (MAP) Pulse Ox O2 Delivery O2 Flow Rate FiO2 01/20/25 20:00 84 01/20/25 20:00 22 97 Room Air* 0 21 01/20/25 18:45 113/67 (82) 01/20/25 16:00 98.6 98.6 Physical Exam Gen.: Patient lying in bed in no apparent distress. Breathing on room air. Head: Normocephalic, atraumatic. Eyes: EOMI/PERRLA. Ears: Normal hearing. Normal anatomy. Neck/trachea: Trachea midline, supple. Nose: Normal external anatomy. Mouth: Moist mucous membranes. Chest: Decreased air entry bilaterally. No wheezing or rhonchi. Cardiovascular: Positive S1, positive S2. Regular rate and rhythm. Abdomen: Positive bowel sounds in all 4 quadrants. Soft, non-tender, non- distended. : Deferred. Rectal: Deferred. Skin: Warm, dry. Intact. Extremities: 2+ radial pulses bilaterally. No lower extremity edema. Neuro: Awake, alert, oriented x3. No gross motor or sensory deficits. Cranial nerves II through XII intact. Gait not assessed. Labs/Diagnostic Data Labs Test 01/20/25 14:27 01/20/25 04:00 01/19/25 03:25 01/18/25 14:45 Range/Units Sodium Level 130 L 136-145 mmol/L Potassium Level 3.4 L 3.5-5.1 mmol/L Chloride Level 96 L 98-107 mmol/L Carbon Dioxide Level 28 20-31 mmol/L Anion Gap 6 5-15 Blood Urea Nitrogen 20 9-23 mg/dL Creatinine 0.96 0.700-1.30 mg/dL Glomerular Filtration Rate Calc 89 >90 mL/min BUN/Creatinine Ratio 20.8 H 10.0-20.0 Serum Glucose 127 H 74-106 mg/dL Calcium Level 8.0 L 8.7-10.4 mg/dL Magnesium Level 2.0 1.6-2.6 mg/dL White Blood Count 6.6 4.4-10.8 10^3/uL Red Blood Count 3.11 L 4.5-5.90 10^6/uL Hemoglobin 10.0 L 13.5-17.5 g/dL Hematocrit 28.8 L 41.0-53.0 % Mean Corpuscular Volume 92.5 80.0-100.0 fL Mean Corpuscular Hemoglobin 32.1 H 28.0-32.0 pg Mean Corpuscular Hemoglobin Concent 34.7 32.0-36.0 g/dL Red Cell Distribution Width 15.2 H 11.8-14.3 % Platelet Count 157 140-450 10^3/uL Mean Platelet Volume 7.0 6.9-10.8 fL Neutrophils (%) (Auto) 37.0-80.0 % Lymphocytes (%) (Auto) 10.0-50.0 % Monocytes (%) (Auto) 0.0-12.0 % Basophils (%) (Auto) 0.0-2.0 % Neutrophils # (Auto) 1.6-8.6 10 ^3/uL Lymphocytes # (Auto) 0.4-5.4 10 ^3/uL Monocytes # (Auto) 0-1.3 10 ^3/uL Differential Total Cells Counted 100.0 100 Neutrophils % (Manual) 54 37.0-80.0 Band Neutrophils % (Manual) 0 Lymphocytes % (Manual) 32 10.0-50.0 Monocytes % (Manual) 10 0-12 Eosinophils % (Manual) 4 0-7 Basophils % (Manual) 0 0.0-2.0 Metamyelocytes % (manual) 0 Myelocytes % (Manual) 0 Promyelocytes % (Manual) 0 Blast Cells % (Manual) 0 Reactive Lymphocytes 0 Platelet Estimate Adequate Phosphorus Level 2.9 2.4-5.1 mg/dL Total Bilirubin 2.9 H 0.2-1.0 mg/dL Aspartate Amino Transferase (AST) 80 H 13-40 U/L Alanine Aminotransferase (ALT) 35 7-40 U/L Alkaline Phosphatase 117 H 46-116 U/L Total Protein 5.0 L 5.7-8.2 g/dL Albumin 2.3 L 3.2-4.8 g/dL Large Platelets Few Anisocytosis (manual) Slight Ammonia 31 11-32 umol/L Test 01/18/25 03:30 01/17/25 01:25 01/16/25 18:29 01/16/25 09:35 Range/Units Eosinophils (%) (Auto) 1.8 0.0-7.0 % Eosinophils # (Auto) 0.2 0-0.8 10 ^3/uL Basophils # (Auto) 0.2 0-0.2 10 ^3/uL Nucleated Red Blood Cells 0.0 % Urine Color Yellow Yellow Urine Clarity Clear Clear Urine pH 5.0 5.0-9.0 Urine Specific [place] 1.012 1.001-1.035 Urine Protein Negative Negative Urine Ketones Negative Negative Urine Blood Negative Negative /uL Urine Nitrite Negative Negative Urine Bilirubin Negative Negative Urine Urobilinogen Normal Negative mg/dL Urine Leukocyte Esterase Negative Negative /uL Urine RBC 1 0 - 3 /hpf Urine Microscopic WBC 1 0-3 /HPF Urine Squamous Epithelial Cells Few <5 /hpf Urine Bacteria Few H None Seen /hpf Urine Hyaline Casts Few 0 - 2 /lpf Urine Sodium 26 L 40-220 mmol/L Urine Glucose Normal Normal mg/dL Lactic Acid Level 4.3 *H 0.4-2.0 mmol/L Troponin I High Sensitivity 22 </=54 ng/L Test 01/16/25 01:04 Range/Units Prothrombin Time 15.5 H 9.3-11.8 sec Prothrombin Time INR 1.52 H 0.9-1.15 Activated Partial Thromboplast Time 36.2 H 24.5-34.5 SEC Microbiology Date/Time Source Procedure Growth Status 01/16/25 17:00 Nose MRSA Screen - Final Complete 01/16/25 06:36 Blood Blood Culture - Preliminary NO GROWTH AFTER 72 HOURS OF INCUBATION. Resulted Assessment Impression: Liver cirrhosis Ascites s/p paracentesis Transaminitis Anemia Hyponatremia Obesity Plan: On room air Supplemental oxygen PRN Patient with jaundice Monitor LFTs. On pressors for hemodynamic support Levophed 8 mcg/min Titrate to keep mean arterial pressure greater than 65 mmHg S/p paracentesis on 01/16/25 Repeat paracentesis planned for Wednesday Continue antibiotics Incentive spirometry Midodrine - monitor blood pressure Albumin Lactulose Monitor H&H Follow up GI recs Diet and lifestyle modifications for weight reduction Obesity - complicates all care Diurese as tolerated w/ Lasix Monitor renal function. Monitor electrolytes. Supplement as necessary. Monitor sodium d/t hyponatremia Magnesium replacement Monitor ins and outs. GI/DVT prophylaxis. Prognosis: Poor given patient's multiple co-morbidities. Condition: Critical Rest of plan per hospitalist and other consultants. A total of 35 minutes of critical care time was spent reviewing the patient record, examining the patient, making a diagnostic and therapeutic plan, discussing this plan with the medical personnel, following up on diagnostic studies and following the patient for clinical stability excluding any and all procedures. At least 50% of this time was spent in direct, [id number] contact. Thank you Dr. Hernandez, for allowing me to participate in this patient's care. Further recommendations will depend on the patient's clinical course. Please do not hesitate to contact me if you have any questions or concerns. This medical document was created using an electronic medical record system with [employer] system. Although these documentations are being carefully reviewed, there may still be some phonetic and typographical changes. The errors are purely typographical, due to imperfection on the software program, and do not reflect any compromise in the patient's medical care. Plan discussed with: Patient, Other (CLAUDIA Schuler/Dr Hernandez) ROBERTO CLAY MD Jan 20, 2025 20:11
[2025-01-21] VITALS (99 sets, daily range): BP systolic 78–113; BP diastolic 29–78; PULSE 57–95; RESP 6–25; TEMP 97.8–98.9; O2SAT 94–100
[2025-01-21 03:58] LABS: Hematocrit 25.5 % (41.0-53.0); Hemoglobin 9.1 g/dL (13.5-17.5); Mean Corpuscular Hemoglobin 32.9 pg (28.0-32.0); Mean Corpuscular Hgb Conc. 35.5 g/dL (32.0-36.0); Mean Corpuscular Volume 92.7 fL (80.0-100.0); Platelet Count (auto) 138 10^3/uL (140-450); Red Blood Cells 2.76 10^6/uL (4.5-5.90); Red Cell Distribution Width 14.9 % (11.8-14.3); White Blood Cell 6.2 10^3/uL (4.4-10.8)
[2025-01-21 04:01] LABS: Anion Gap 8 (5-15); Carbon Dioxide 27 mmol/L (20-31); Potassium 3.7 mmol/L (3.5-5.1)
[2025-01-21 04:02] LABS: Band Neutrophils % (manual) 0; Basophils % (manual) 0 (0.0-2.0); Blast Cells 0; Metamyelocytes % 0; Myelocytes % 0; Promyelocytes % 0; Reactive Lymphocytes 0
[2025-01-21 04:06] LABS: BUN/Creatinine Ratio 19.6 (10.0-20.0); Blood Urea Nitrogen 20 mg/dL (9-23); Magnesium 1.6 mg/dL (1.6-2.6)
[2025-01-21 04:08] LABS: Phosphorus 2.8 mg/dL (2.4-5.1)
[2025-01-21 04:16] LABS: Calcium 7.7 mg/dL (8.7-10.4); Chloride 96 mmol/L (98-107); Glucose 130 mg/dL (74-106); Sodium 131 mmol/L (136-145)
[2025-01-21 04:47] LABS: Eosinophils % (manual) 2 (0-7); Lymphocytes % (manual) 30 (10.0-50.0); Monocytes % (manual) 14 (0-12); Platelet Estimate Adequate
--- NOTE | 2025-01-21 10:40 | DVHPN2 ---
Assessment/Plan Assessment/Plan ICU note 64 M with alcoholic cirrhosis seen today during rounds, off levo today, plan for para tomorrow, not encephalopathic physical exam aox3 clear breath sounds s1 s2 rrr abdomen distended, fluid shift + no sx of hepatic encep no LE edema labs ekg imaging reviewed assessment and plan cirrhosis with ascites distributive shock hyperkalemia lactic acidosis hyperbilirubinemia transminitis anemia normocytic anemia hyponatremia ascites s/p paracentesis possible colitis ag vmn (resolved) hepatic encephalopathy? (resolved) c/w pressors maintain map >65 start midodrine 10 TID considering repeat para c/w lactulose, aim for 2-3 BM per day dc flagyl, c/w ceft protonix renal consult appreciated gi consult appreciated fluid restriction albumin condition critical prognosis poor full code dvt ppx lovenox gi ppx not indicated diet hepatic critical care time 39 minutes Plan discussed with: Patient Date of Service: Jan 21, 2025 Billing Provider: VA ALEXANDER MD Common Visit Codes: [id number] CARE 30-74 MIN VA ALEXANDER MD Jan 21, 2025 10:40
--- NOTE | 2025-01-21 18:54 | DVHPN2 ---
Progress Note - Dictate Date Seen: Jan 21, 2025 Medical Necessity Reason Pt with a Central, PICC or Fol: No Subjective Patient seen and examined at bedside. Breathing comfortably on room air. Overnight events reviewed. vital signs Vital Sign Date Time Temp Pulse Resp B/P (MAP) Pulse Ox O2 Delivery O2 Flow Rate FiO2 01/21/25 18:30 67 14 101/51 (68) 99 01/21/25 18:00 Room Air* 0 21 01/21/25 17:00 97.8 97.8 Total Intake and Output 01/20/25 01/20/25 01/21/25 15:00 23:00 07:00 Intake Total 274.376 ml 640.000 ml 487.188 ml Output Total 900 ml 350 ml Balance 274.376 ml -260.000 ml 137.188 ml medications Current Medications Medications Dose Ordered Sig/Gaston Route Start Time Stop Time Status Last Admin Dose Admin Acetaminophen/ Hydrocodone Bitart 1 tab Q4HP PRN PO 01/16/25 14:30 01/21/25 16:13 1 TAB Ondansetron HCl 4 mg Q4HP PRN IV 01/16/25 14:30 Acetaminophen 650 mg Q6HP PRN PO 01/16/25 14:30 Nitroglycerin 0.4 mg Q5MINP PRN SL 01/16/25 14:30 Morphine Sulfate 2 mg Q30M PRN IV 01/16/25 14:30 Thiamine HCl 100 mg DAILY PO 01/17/25 10:00 01/21/25 08:10 100 MG Ceftriaxone Sodium 50 ml @ 100 mls/hr DAILY@09 IV 01/18/25 09:00 01/21/25 08:10 100 MLS/HR Magnesium Oxide 400 mg DAILY PO 01/17/25 13:45 01/21/25 08:10 400 MG Phenylephrine HCl 80 mg/Sodium Chloride 250 ml @ 7.5 mls/hr Q24H IV 01/17/25 14:30 Norepinephrine Bitartrate 32 mg/ Sodium Chloride 250 ml @ 0.938 mls/ hr Q24H IV 01/17/25 14:30 01/20/25 04:00 5.625 MLS/HR Furosemide 40 mg BIDD IV 01/17/25 15:16 01/21/25 16:57 40 MG Pantoprazole Sodium 40 mg BID IV 01/17/25 22:00 01/21/25 08:10 40 MG Zirconium Oxide 5 gm DAILY PO 01/17/25 22:00 Hold 01/19/25 08:02 5 GM Midodrine 15 mg TID@0600,1200,1800 PO 01/19/25 18:00 01/21/25 16:57 15 MG Lactulose 30 ml DAILY PO 01/20/25 10:00 01/21/25 08:10 30 ML objective Gen.: Patient lying in bed in no apparent distress. Breathing on room air. Head: Normocephalic, atraumatic. Eyes: EOMI/PERRLA. Ears: Normal hearing. Normal anatomy. Neck/trachea: Trachea midline, supple. Nose: Normal external anatomy. Mouth: Moist mucous membranes. Chest: Decreased air entry bilaterally. No wheezing or rhonchi. Cardiovascular: Positive S1, positive S2. Regular rate and rhythm. Abdomen: Positive bowel sounds in all 4 quadrants. Soft, non-tender, non- distended. : Deferred. Rectal: Deferred. Skin: Warm, dry. Intact. Extremities: 2+ radial pulses bilaterally. No lower extremity edema. Neuro: Awake, alert, oriented x3. No gross motor or sensory deficits. Cranial nerves II through XII intact. Gait not assessed. laboratory and microbiology Laboratory Tests 01/21/25 03:33 Test 01/21/25 03:33 Range/Units Serum Glucose 130 H 74-106 mg/dL Assessment/Plan Impression: Liver cirrhosis Ascites s/p paracentesis Transaminitis Anemia Hyponatremia Obesity Events: Breathing on room air Supplemental oxygen PRN Patient with jaundice Off Levophed since 8 AM, hemodynamically stable. Midodrine - monitor blood pressure Albumin Lactulose Ammonia elevated at 56 Patient with abdominal distension - pending paracentesis Continue antibiotics Monitor renal function. Monitor electrolytes. Supplement as necessary. Hyponatremia improving - sodium of 131 Magnesium supplementation Labs and imaging reviewed. Rest of plan as noted below. Plan: On room air Supplemental oxygen PRN Patient with jaundice Monitor LFTs. Pressors if necessary for hemodynamic support Titrate to keep mean arterial pressure greater than 65 mmHg S/p paracentesis on 01/16/25 Repeat paracentesis planned for tomorrow Continue antibiotics Incentive spirometry Midodrine - monitor blood pressure Albumin Lactulose Monitor H&H GI recs appreciated Diet and lifestyle modifications for weight reduction Obesity - complicates all care Diurese as tolerated w/ Lasix Monitor renal function. Monitor electrolytes. Supplement as necessary. Monitor sodium d/t hyponatremia Magnesium replacement Monitor ins and outs. GI/DVT prophylaxis. Prognosis: Poor given patient's multiple co-morbidities. Rest of plan per hospitalist and other consultants. Thank you Dr. Hernandez, for allowing me to participate in this patient's care. Further recommendations will depend on the patient's clinical course. Please do not hesitate to contact me if you have any questions or concerns. This medical document was created using an electronic medical record system with [employer] dictation system. Although these documentations are being carefully reviewed, there may still be some phonetic and typographical changes. The errors are purely typographical, due to imperfection on the software program, and do not reflect any compromise in the patient's medical care. Dietary Evaluation Review Comments: 1. Agree with 2 gm Na diet, 1 L fluid/day per nephrology 2. Encourage good oral intakes >75% of meals, snacks PRN 3. May consider Ensure Enlive 1x/day to enhance caloric and protein intake if within fluid restriction limitations (provides 350 kcal, 20 gm pro, 237 ml fluid) Expected Outcomes/Goals: Adequate nutrition, improved lab values. Plan discussed with: Patient, Other (CLAUDIA Schuler) ROBERTO CLAY MD Jan 21, 2025 18:54
--- NOTE | 2025-01-21 21:16 | DVHNC2 ---
Procedure - Paracentesis Procedure Note INDICATION: Ascites PROCEDURE CARDIOLOGY PHYSICIAN ASSISTANT: Dr Roberto Boaf Time out 2104 Ultrasound used to maria location: Yes CONSENT: Consent was obtained from patient prior to the procedure. Indications, risks, and benefits were explained at length. Patient medications and allergies reviewed. The risks and benefits of the procedure and the sedation options and risk were discussed with the patient's healthcare proxy. All questions were answered and informed consent was obtained. Patient identification and proposed procedure were verified prior to the procedure by the physician, and a nurse in the patient's room. The heart rate, respiratory rate, oxygen saturations, blood pressure, adequacy of pulmonary ventilation, and response to care were monitored throughout the procedure. The physical status of the patient was reassessed after the procedure. PROCEDURE SUMMARY: A time-out was performed. My hands were washed immediately prior to the procedure. I wore a surgical cap, mask with protective eyewear, sterile gown and sterile gloves throughout the procedure. The area was cleansed and draped in usual sterile fashion using chlorhexidine scrub. Anesthesia was achieved with 1% lidocaine. The _ of the abdomen was prepped and draped in a sterile fashion using chlorhexidine scrub. 1% lidocaine was used to numb the skin, soft tissue and peritoneum. The paracentesis catheter was inserted and advanced with negative pressure until yellow colored fluid was aspirated. The catheter was then connected to the vaccutainer and 6 liters of additional ascitic fluid were drained. The catheter was removed and no leaking was noted. A band aid was placed over the puncture wound. The patient tolerated the procedure well without any immediate complications. Estimated blood loss was less than 5 mL. CPT 47324 ROBERTO CLAY MD Jan 21, 2025 21:16
[2025-01-21] MEDS: ALBUMIN 25% 100 ML IV ONE (21:37)
[2025-01-22] VITALS (104 sets, daily range): BP systolic 87–130; BP diastolic 39–74; PULSE 58–112; RESP 12–25; TEMP 98.1–98.9; O2SAT 93–98
[2025-01-22 04:02] LABS: Hemoglobin 9.6 g/dL (13.5-17.5); Mean Corpuscular Hemoglobin 33.2 pg (28.0-32.0); Mean Corpuscular Hgb Conc. 35.7 g/dL (32.0-36.0); Platelet Count (auto) 148 10^3/uL (140-450); Red Cell Distribution Width 15.6 % (11.8-14.3); White Blood Cell 6.3 10^3/uL (4.4-10.8)
[2025-01-22 04:08] LABS: Alanine Aminotransferase 27 U/L (7-40); Alkaline Phosphatase 97 U/L (46-116); Anion Gap 7 (5-15); BUN/Creatinine Ratio 14.8 (10.0-20.0); Blood Urea Nitrogen 19 mg/dL (9-23); Carbon Dioxide 27 mmol/L (20-31); Magnesium 1.8 mg/dL (1.6-2.6); Potassium 4.1 mmol/L (3.5-5.1)
[2025-01-22 04:09] LABS: Phosphorus 3.4 mg/dL (2.4-5.1)
[2025-01-22 04:11] LABS: Band Neutrophils % (manual) 0; Basophils % (manual) 0 (0.0-2.0); Blast Cells 0; Metamyelocytes % 0; Myelocytes % 0; Promyelocytes % 0; Reactive Lymphocytes 0
[2025-01-22 04:20] LABS: Albumin 2.6 g/dL (3.2-4.8); Aspartate Aminotransferase 65 U/L (13-40); Bilirubin, Total 2.8 mg/dL (0.2-1.0); Calcium 8.2 mg/dL (8.7-10.4); Chloride 96 mmol/L (98-107); Glucose 119 mg/dL (74-106); Sodium 130 mmol/L (136-145); Total Protein 5.2 g/dL (5.7-8.2)
[2025-01-22 06:42] LABS: Eosinophils % (manual) 4 (0-7); Large Platelets FEW; Lymphocytes % (manual) 19 (10.0-50.0); Monocytes % (manual) 19 (0-12); Platelet Estimate Adequate
[2025-01-22] MEDS: ALBUMIN 25% 100 ML IV ONE (09:30)
[2025-01-22 09:58] LABS: Hepatitis B Core Total AB Negative (Negative)
[2025-01-22 10:32] LABS: Hepatitis A Total Antibody Positive (Negative); Hepatitis B Surface Antibody Negative (Negative); Hepatitis B Surface Antigen Negative (Negative); Hepatitis C Antibody Negative (Negative)
[2025-01-22] MEDS: ALBUMIN 25% 50 ML IV ONE (16:12)
--- NOTE | 2025-01-22 20:17 | DVHPN2 ---
Assessment/Plan Assessment/Plan ICU note 64 M with alcoholic cirrhosis seen today during rounds,had para, received 37.5 albumin. still on levo. increase midodrine to 15 TID physical exam aox3 clear breath sounds s1 s2 rrr abdomen distended, fluid shift + no sx of hepatic encep no LE edema labs ekg imaging reviewed assessment and plan cirrhosis with ascites distributive shock hyperkalemia lactic acidosis hyperbilirubinemia transminitis anemia normocytic anemia hyponatremia ascites s/p paracentesis possible colitis ag vmn (resolved) hepatic encephalopathy? (resolved) c/w pressors maintain map >65 start midodrine 15 TID considering repeat para c/w lactulose, aim for 2-3 BM per day dc flagyl, c/w ceft protonix renal consult appreciated gi consult appreciated fluid restriction albumin condition critical prognosis poor full code dvt ppx lovenox gi ppx not indicated diet hepatic critical care time 40 minutes Plan discussed with: Patient Date of Service: Jan 22, 2025 Billing Provider: VA ALEXANDER MD Common Visit Codes: [id number] CARE 30-74 MIN VA ALEXANDER MD Jan 22, 2025 20:17
--- NOTE | 2025-01-22 21:32 | DVHPN2 ---
Progress Note - Dictate Date Seen: Jan 22, 2025 Medical Necessity Reason Pt with a Central, PICC or Fol: No Subjective Patient seen at bedside, Patient feels better He is still on IV Levophed and midodrine 15 three times a day Patient received paracentesis yesterday on 6 L of fluid was removed He was also given some albumin vital signs Vital Sign Date Time Temp Pulse Resp B/P (MAP) Pulse Ox O2 Delivery O2 Flow Rate FiO2 01/22/25 20:05 99 01/22/25 19:50 22 96 Room Air* 0 21 01/22/25 19:01 123/66 (85) 01/22/25 12:15 98.9 98.9 Total Intake and Output 01/21/25 01/21/25 01/22/25 15:00 23:00 07:00 Intake Total 50 ml 608.439 ml 342.192 ml Output Total 500 ml 6500 ml Balance 50 ml 108.439 ml -6157.808 ml medications Current Medications Medications Dose Ordered Sig/Gaston Route Start Time Stop Time Status Last Admin Dose Admin Acetaminophen/ Hydrocodone Bitart 1 tab Q4HP PRN PO 01/16/25 14:30 01/21/25 16:13 1 TAB Ondansetron HCl 4 mg Q4HP PRN IV 01/16/25 14:30 Acetaminophen 650 mg Q6HP PRN PO 01/16/25 14:30 Nitroglycerin 0.4 mg Q5MINP PRN SL 01/16/25 14:30 Morphine Sulfate 2 mg Q30M PRN IV 01/16/25 14:30 Thiamine HCl 100 mg DAILY PO 01/17/25 10:00 01/22/25 08:42 100 MG Ceftriaxone Sodium 50 ml @ 100 mls/hr DAILY@09 IV 01/18/25 09:00 01/22/25 08:42 100 MLS/HR Magnesium Oxide 400 mg DAILY PO 01/17/25 13:45 01/22/25 08:42 400 MG Phenylephrine HCl 80 mg/Sodium Chloride 250 ml @ 7.5 mls/hr Q24H IV 01/17/25 14:30 Norepinephrine Bitartrate 32 mg/ Sodium Chloride 250 ml @ 0.938 mls/ hr Q24H IV 01/17/25 14:30 01/22/25 18:23 3.75 MLS/HR Furosemide 40 mg BIDD IV 01/17/25 15:16 01/22/25 18:23 40 MG Pantoprazole Sodium 40 mg BID IV 01/17/25 22:00 01/22/25 08:42 40 MG Zirconium Oxide 5 gm DAILY PO 01/17/25 22:00 Hold 01/19/25 08:02 5 GM Midodrine 15 mg TID@0600,1200,1800 PO 01/19/25 18:00 01/22/25 18:22 15 MG Lactulose 30 ml DAILY PO 01/20/25 10:00 01/22/25 08:42 30 ML objective aox3 clear breath sounds s1 s2 rrr abdomen distended, fluid shift + no sx of hepatic encep no LE edema laboratory and microbiology Laboratory Tests 01/22/25 03:05 Test 01/22/25 03:05 Range/Units Serum Glucose 119 H 74-106 mg/dL Problems(with codes): (1) Hepatic encephalopathy (2) Elevated liver enzymes (3) Coagulopathy (4) Cirrhosis of liver with ascites Prognosis Plan Continue supportive care Monitor labs Lactulose daily Vitamin K daily Blood pressure is not supporting diuretic use his Continue albumin Meld score 23 point, predictive of 19.6% three-month mortality [facility] discrimination function is 22 point suggestive of good prognosis Dietary Evaluation Review Comments: 1. Agree with 2 gm Na diet, 1 L fluid/day per nephrology 2. Encourage good oral intakes >75% of meals, snacks PRN 3. May consider Ensure Enlive 1x/day to enhance caloric and protein intake if within fluid restriction limitations (provides 350 kcal, 20 gm pro, 237 ml fluid) Expected Outcomes/Goals: Adequate nutrition, improved lab values. Plan discussed with: Patient, Other (ICU nurse) GABRIELLA MAZARIEGOS MD Jan 22, 2025 21:32
[2025-01-23] VITALS (101 sets, daily range): BP systolic 74–128; BP diastolic 38–77; PULSE 56–120; RESP 10–25; TEMP 97.6–98.7; O2SAT 93–100
[2025-01-23 03:56] LABS: Hematocrit 26.1 % (41.0-53.0); Hemoglobin 9.2 g/dL (13.5-17.5); Mean Corpuscular Hemoglobin 33.1 pg (28.0-32.0); Mean Corpuscular Hgb Conc. 35.4 g/dL (32.0-36.0); Mean Corpuscular Volume 93.5 fL (80.0-100.0); Platelet Count (auto) 128 10^3/uL (140-450); Red Blood Cells 2.79 10^6/uL (4.5-5.90); Red Cell Distribution Width 15.9 % (11.8-14.3); White Blood Cell 6.8 10^3/uL (4.4-10.8)
[2025-01-23 04:02] LABS: Basophils % (manual) 0 (0.0-2.0); Blast Cells 0; Metamyelocytes % 0; Myelocytes % 0; Promyelocytes % 0; Reactive Lymphocytes 0
[2025-01-23 04:20] LABS: Alanine Aminotransferase 22 U/L (7-40); Alkaline Phosphatase 109 U/L (46-116); Anion Gap 4 (5-15); BUN/Creatinine Ratio 15.5 (10.0-20.0); Blood Urea Nitrogen 18 mg/dL (9-23); Carbon Dioxide 28 mmol/L (20-31); Chloride 99 mmol/L (98-107); Magnesium 1.7 mg/dL (1.6-2.6); Phosphorus 3.3 mg/dL (2.4-5.1); Potassium 3.7 mmol/L (3.5-5.1)
[2025-01-23 04:23] LABS: Albumin 2.4 g/dL (3.2-4.8); Aspartate Aminotransferase 55 U/L (13-40); Bilirubin, Total 2.4 mg/dL (0.2-1.0); Glucose 118 mg/dL (74-106); Sodium 131 mmol/L (136-145); Total Protein 4.7 g/dL (5.7-8.2)
[2025-01-23 04:52] LABS: Band Neutrophils % (manual) 1; Eosinophils % (manual) 6 (0-7); Lymphocytes % (manual) 27 (10.0-50.0); Monocytes % (manual) 11 (0-12)
[2025-01-23 04:53] LABS: Large Platelets FEW
[2025-01-23 04:54] LABS: Platelet Estimate Decreased
--- NOTE | 2025-01-23 10:57 | MEDREC ---
[facility] ASP Intervention Section I [facility] ASP Intervention: Review courses of therapy (PLEASE CONSIDER D/C ANTIBIOTIC(S) IN ABSENCE OF BACTERIAL INFECTION ) TD WALKER PHARMACIST Jan 23, 2025 10:57
--- NOTE | 2025-01-23 18:51 | DVHPN2 ---
Progress Note - Dictate Date Seen: Jan 23, 2025 Medical Necessity Reason Pt with a Central, PICC or Fol: No Subjective Repeat paracentesis on 01/22 w/ 6 L off. Remains on levo. On room air. Oral intake is adequate, consuming 75% of meals consistently. Pt also received IV albumin vital signs Vital Sign Date Time Temp Pulse Resp B/P (MAP) Pulse Ox O2 Delivery O2 Flow Rate FiO2 01/23/25 18:35 105/60 01/23/25 16:45 75 20 97 01/23/25 16:00 Room Air* 0 21 01/23/25 16:00 97.6 97.6 Total Intake and Output 01/22/25 01/22/25 01/23/25 15:00 23:00 07:00 Intake Total 82.814 ml 333.75 ml 514.690 ml Output Total 875 ml 350 ml Balance 82.814 ml -541.25 ml 164.690 ml medications Current Medications Medications Dose Ordered Sig/Gaston Route Start Time Stop Time Status Last Admin Dose Admin Acetaminophen/ Hydrocodone Bitart 1 tab Q4HP PRN PO 01/16/25 14:30 01/23/25 04:07 1 TAB Ondansetron HCl 4 mg Q4HP PRN IV 01/16/25 14:30 Acetaminophen 650 mg Q6HP PRN PO 01/16/25 14:30 Nitroglycerin 0.4 mg Q5MINP PRN SL 01/16/25 14:30 Morphine Sulfate 2 mg Q30M PRN IV 01/16/25 14:30 Thiamine HCl 100 mg DAILY PO 01/17/25 10:00 01/23/25 09:25 100 MG Ceftriaxone Sodium 50 ml @ 100 mls/hr DAILY@09 IV 01/18/25 09:00 01/23/25 09:19 100 MLS/HR Magnesium Oxide 400 mg DAILY PO 01/17/25 13:45 01/23/25 09:24 400 MG Phenylephrine HCl 80 mg/Sodium Chloride 250 ml @ 7.5 mls/hr Q24H IV 01/17/25 14:30 Norepinephrine Bitartrate 32 mg/ Sodium Chloride 250 ml @ 0.938 mls/ hr Q24H IV 01/17/25 14:30 01/22/25 18:23 3.75 MLS/HR Furosemide 40 mg BIDD IV 01/17/25 15:16 4/8/25 18:35 40 MG Pantoprazole Sodium 40 mg BID IV 01/17/25 22:00 01/23/25 09:23 40 MG Zirconium Oxide 5 gm DAILY PO 01/17/25 22:00 Hold 01/19/25 08:02 5 GM Midodrine 15 mg TID@0600,1200,1800 PO 01/19/25 18:00 01/23/25 18:34 15 MG Lactulose 30 ml DAILY PO 01/20/25 10:00 01/23/25 09:25 30 ML objective aox3 clear breath sounds s1 s2 rrr abdomen distended, fluid shift + no sx of hepatic encep no LE edema laboratory and microbiology Laboratory Tests 01/23/25 03:28 Test 01/23/25 03:28 Range/Units Serum Glucose 118 H 74-106 mg/dL Problems(with codes): (1) Hepatic encephalopathy (2) Elevated liver enzymes (3) Coagulopathy (4) Cirrhosis of liver with ascites Prognosis Plan Continue supportive care Monitor labs Lactulose daily Vitamin K daily Blood pressure is not supporting diuretic use at this time Continue albumin Meld score 23 point, predictive of 19.6% three-month mortality [facility] 22 point suggestive of good prognosis Dietary Evaluation Review Comments: 1. Agree with 2 gm Na diet, 1 L fluid/day per nephrology 2. Encourage good oral intakes >75% of meals, snacks PRN 3. May consider Ensure Enlive 1x/day to enhance caloric and protein intake if within fluid restriction limitations (provides 350 kcal, 20 gm pro, 237 ml fluid) Expected Outcomes/Goals: Adequate nutrition, improved lab values. Plan discussed with: Patient GABRIELLA MAZARIEGOS MD Jan 23, 2025 18:51
--- NOTE | 2025-01-23 22:21 | DVHPN2 ---
Assessment/Plan Assessment/Plan ICU note 64 M with alcoholic cirrhosis seen today during rounds,remain hypotensive on pressors physical exam aox3 clear breath sounds s1 s2 rrr abdomen distended, fluid shift + no sx of hepatic encep no LE edema labs ekg imaging reviewed assessment and plan cirrhosis with ascites distributive shock hyperkalemia lactic acidosis hyperbilirubinemia transminitis anemia normocytic anemia hyponatremia ascites s/p paracentesis possible colitis ag vmn (resolved) hepatic encephalopathy? (resolved) c/w pressors maintain map >65 start midodrine 15 TID considering repeat para c/w lactulose, aim for 2-3 BM per day dc flagyl, c/w ceft protonix renal consult appreciated gi consult appreciated fluid restriction albumin condition critical prognosis poor full code dvt ppx lovenox gi ppx not indicated diet hepatic critical care time 40 minutes Plan discussed with: Patient Date of Service: Jan 23, 2025 Billing Provider: VA ALEXANDER MD Common Visit Codes: [id number] CARE 30-74 MIN VA ALEXANDER MD Jan 23, 2025 22:21
[2025-01-24] VITALS (94 sets, daily range): BP systolic 76–140; BP diastolic 29–83; PULSE 57–143; RESP 12–30; TEMP 97.6–98.8; O2SAT 93–99
[2025-01-24 03:55] LABS: Hematocrit 27.3 % (41.0-53.0); Hemoglobin 9.6 g/dL (13.5-17.5); Mean Corpuscular Hemoglobin 33.1 pg (28.0-32.0); Mean Corpuscular Hgb Conc. 35.3 g/dL (32.0-36.0); Mean Corpuscular Volume 93.6 fL (80.0-100.0); Platelet Count (auto) 137 10^3/uL (140-450); Red Blood Cells 2.91 10^6/uL (4.5-5.90); Red Cell Distribution Width 16.3 % (11.8-14.3); White Blood Cell 6.7 10^3/uL (4.4-10.8)
[2025-01-24 04:00] LABS: Band Neutrophils % (manual) 0; Basophils % (manual) 0 (0.0-2.0); Blast Cells 0; Metamyelocytes % 0; Promyelocytes % 0; Reactive Lymphocytes 0
[2025-01-24 04:07] LABS: Anion Gap 5 (5-15); Carbon Dioxide 28 mmol/L (20-31); Chloride 99 mmol/L (98-107); Potassium 3.5 mmol/L (3.5-5.1)
[2025-01-24 04:08] LABS: Sodium 132 mmol/L (136-145)
[2025-01-24 04:13] LABS: BUN/Creatinine Ratio 15.7 (10.0-20.0); Blood Urea Nitrogen 17 mg/dL (9-23)
[2025-01-24 04:15] LABS: Phosphorus 3.1 mg/dL (2.4-5.1)
[2025-01-24 04:16] LABS: Glucose 123 mg/dL (74-106); Magnesium 1.6 mg/dL (1.6-2.6)
[2025-01-24 04:59] LABS: Eosinophils % (manual) 6 (0-7); Lymphocytes % (manual) 33 (10.0-50.0); Monocytes % (manual) 12 (0-12); Myelocytes % 1; Platelet Estimate Decreased
[2025-01-24] MEDS: MAGNESIUM SULFATE 1GM/100ML 100 ML IV SCH (05:35)
--- NOTE | 2025-01-24 08:59 | DVHPN2 ---
Assessment/Plan Assessment/Plan ICU note 64 M with alcoholic cirrhosis seen today during rounds,remain hypotensive on pressors, AM cortisol innapropriately low, starting solucortef, taper down pressors physical exam aox3 clear breath sounds s1 s2 rrr abdomen distended, fluid shift + no sx of hepatic encep no LE edema labs ekg imaging reviewed assessment and plan cirrhosis with ascites distributive shock hyperkalemia lactic acidosis hyperbilirubinemia transminitis anemia normocytic anemia hyponatremia ascites s/p paracentesis possible colitis ag vmn (resolved) hepatic encephalopathy? (resolved) c/w pressors maintain map >65 start midodrine 15 TID considering repeat para c/w lactulose, aim for 2-3 BM per day dc flagyl, c/w ceft protonix renal consult appreciated gi consult appreciated fluid restriction albumin no need to trend ammonia condition critical prognosis poor full code dvt ppx lovenox gi ppx not indicated diet hepatic critical care time 40 minutes Plan discussed with: Patient My Orders Orders - VA ALEXANDER MD Procedure Category Date Status Time Pt Request For Service PT 01/23/25 Logged 22:22 Date of Service: Jan 24, 2025 Billing Provider: VA ALEXANDER MD Common Visit Codes: [id number] CARE 30-74 MIN VA ALEXANDER MD Jan 24, 2025 08:59
[2025-01-24] MEDS: HYDROCORTISONE SOD SUCC 100 MG/2ML INJ VIAL IV ONE (10:30)
[2025-01-24] MEDS: HYDROCORTISONE SOD SUCC 100 MG/2ML INJ VIAL IV SCH (15:09)
--- NOTE | 2025-01-24 23:02 | DVHPN2 ---
Progress Note - Dictate Date Seen: Jan 24, 2025 Medical Necessity Reason Pt with a Central, PICC or Fol: No Subjective Repeat paracentesis on 01/22 w/ 6 L off. Remains on levo. On room air. Oral intake is adequate, consuming 75% of meals consistently. Pt also received IV albumin vital signs Vital Sign Date Time Temp Pulse Resp B/P (MAP) Pulse Ox O2 Delivery O2 Flow Rate FiO2 01/24/25 22:00 86 01/24/25 22:00 17 98 Room Air* 0 21 01/24/25 19:00 109/29 (55) 01/24/25 16:00 98.6 98.6 Total Intake and Output 01/23/25 01/23/25 01/24/25 15:00 23:00 07:00 Intake Total 87.504 ml 630.25 ml 972.815 ml Output Total 650 ml 875 ml Balance 87.504 ml -19.75 ml 97.815 ml medications Current Medications Medications Dose Ordered Sig/Gaston Route Start Time Stop Time Status Last Admin Dose Admin Acetaminophen/ Hydrocodone Bitart 1 tab Q4HP PRN PO 01/16/25 14:30 01/24/25 02:24 1 TAB Ondansetron HCl 4 mg Q4HP PRN IV 01/16/25 14:30 Acetaminophen 650 mg Q6HP PRN PO 01/16/25 14:30 Nitroglycerin 0.4 mg Q5MINP PRN SL 01/16/25 14:30 Morphine Sulfate 2 mg Q30M PRN IV 01/16/25 14:30 Thiamine HCl 100 mg DAILY PO 01/17/25 10:00 01/24/25 10:31 100 MG Ceftriaxone Sodium 50 ml @ 100 mls/hr DAILY@09 IV 01/18/25 09:00 01/24/25 08:54 100 MLS/HR Magnesium Oxide 400 mg DAILY PO 01/17/25 13:45 01/24/25 10:31 400 MG Furosemide 40 mg BIDD IV 01/17/25 15:16 01/24/25 17:51 40 MG Pantoprazole Sodium 40 mg BID IV 01/17/25 22:00 01/24/25 21:42 40 MG Zirconium Oxide 5 gm DAILY PO 01/17/25 22:00 Hold 01/19/25 08:02 5 GM Midodrine 15 mg TID@0600,1200,1800 PO 01/19/25 18:00 01/24/25 17:52 15 MG Lactulose 30 ml DAILY PO 01/20/25 10:00 01/23/25 09:25 30 ML Hydrocortisone Sodium Succinate 50 mg Q6H IV 01/24/25 15:00 01/24/25 21:08 50 MG objective aox3 clear breath sounds s1 s2 rrr abdomen distended, fluid shift + no sx of hepatic encep no LE edema laboratory and microbiology Laboratory Tests 01/24/25 03:20 Test 01/24/25 03:20 Range/Units Serum Glucose 123 H 74-106 mg/dL Problems(with codes): (1) Hepatic encephalopathy (2) Elevated liver enzymes (3) Coagulopathy (4) Cirrhosis of liver with ascites Prognosis 64 M with alcoholic cirrhosis ;remain hypotensive on pressors, AM cortisol innapropriately low, starting solucortef, taper down pressors Continue supportive care from GI point of view Complete paracentesis if ascites reaccumulates Dietary Evaluation Review Comments: 1. Agree with 2 gm Na diet, 1 L fluid/day per nephrology 2. Encourage good oral intakes >75% of meals, snacks PRN 3. May consider Ensure Enlive 1x/day to enhance caloric and protein intake if within fluid restriction limitations (provides 350 kcal, 20 gm pro, 237 ml fluid) Expected Outcomes/Goals: Adequate nutrition, improved lab values. Plan discussed with: Patient GABRIELLA MAZARIEGOS MD Jan 24, 2025 23:02
[2025-01-25] VITALS (105 sets, daily range): BP systolic 76–133; BP diastolic 27–77; PULSE 63–116; RESP 11–25; TEMP 97.7–98.1; O2SAT 92–99
[2025-01-25] MEDS: SODIUM CHLORIDE 0.9% 500 ML IV ONE (01:30)
[2025-01-25 04:01] LABS: Basophils # (auto) 0 10 ^3/uL (0-0.2); Basophils % (auto) 0.7 % (0.0-2.0); Eosinophils # (auto) 0 10 ^3/uL (0-0.8); Hematocrit 25.9 % (41.0-53.0); Hemoglobin 9.2 g/dL (13.5-17.5); Lymphocytes # (auto) 0.5 10 ^3/uL (0.4-5.4); Lymphocytes % (auto) 10.8 % (10.0-50.0); Mean Corpuscular Hemoglobin 33.1 pg (28.0-32.0); Mean Corpuscular Hgb Conc. 35.6 g/dL (32.0-36.0); Mean Corpuscular Volume 93.1 fL (80.0-100.0); Monocytes # (auto) 0.4 10 ^3/uL (0-1.3); Monocytes % (auto) 9.9 % (0.0-12.0); Neutrophils # (auto) 3.3 10 ^3/uL (1.6-8.6); Neutrophils % (auto) 78.6 % (37.0-80.0); Nucleated Red Blood Cells % 0.1 %; Platelet Count (auto) 114 10^3/uL (140-450); Red Blood Cells 2.78 10^6/uL (4.5-5.90); White Blood Cell 4.2 10^3/uL (4.4-10.8)
[2025-01-25 04:33] LABS: Alanine Aminotransferase 22 U/L (7-40); Alkaline Phosphatase 115 U/L (46-116); Anion Gap 7 (5-15); Blood Urea Nitrogen 22 mg/dL (9-23); Carbon Dioxide 25 mmol/L (20-31); Chloride 98 mmol/L (98-107); Magnesium 1.9 mg/dL (1.6-2.6); Phosphorus 2.9 mg/dL (2.4-5.1); Potassium 3.8 mmol/L (3.5-5.1)
[2025-01-25 04:43] LABS: Albumin 2.3 g/dL (3.2-4.8); Aspartate Aminotransferase 56 U/L (13-40); Bilirubin, Total 2.1 mg/dL (0.2-1.0); Glucose 129 mg/dL (74-106); Sodium 130 mmol/L (136-145); Total Protein 4.9 g/dL (5.7-8.2)
[2025-01-25 04:47] LABS: BUN/Creatinine Ratio 16.5 (10.0-20.0)
[2025-01-25 05:20] LABS: Large Platelets FEW; Platelet Estimate Decrea
--- NOTE | 2025-01-25 05:46 | DVH ---
EXAM: XR Chest, 1 View CLINICAL INDICATION: evaluate for fluid overload TECHNIQUE: Frontal view of the chest. COMPARISON: None FINDINGS: LUNGS AND PLEURAL SPACES: Pulmonary venous congestion. No consolidation. No pneumothorax. HEART: Unremarkable. No cardiomegaly. MEDIASTINUM: Unremarkable. Normal mediastinal contour. BONES/JOINTS: Unremarkable. No acute fracture. OTHER FINDINGS: . IMPRESSION: Pulmonary venous congestion.
[2025-01-25 19:28] LABS: Body Fluid Red Blood Cells 62 CUMM (0-2000)
[2025-01-25 19:29] LABS: Body Fluid White Blood Cells 187 CUMM (0-200)
[2025-01-25] MEDS ORDERED: NOREPINEPHRINE BITARTRATE 32 MG in SODIUM CHL 0.9% 218 ML IV SCH (19:30)
--- NOTE | 2025-01-25 20:13 | DVHPN2 ---
Assessment/Plan Assessment/Plan ICU note 64 M with alcoholic cirrhosis seen today during rounds,improved with steroid, tapped today. midline placed. removing fem TLC physical exam aox3 clear breath sounds s1 s2 rrr abdomen distended, fluid shift + no sx of hepatic encep no LE edema labs ekg imaging reviewed assessment and plan cirrhosis with ascites distributive shock hyperkalemia lactic acidosis hyperbilirubinemia transminitis anemia normocytic anemia hyponatremia ascites s/p paracentesis possible colitis ag vmn (resolved) hepatic encephalopathy? (resolved) presumed adrenal insufficiency c/w pressors maintain map >65 start midodrine 15 TID s/p repeat para 4L removed c/w lactulose, aim for 2-3 BM per day dc flagyl, c/w ceft protonix renal consult appreciated gi consult appreciated fluid restriction albumin no need to trend ammonia place midline dc TLC condition critical prognosis poor full code dvt ppx lovenox gi ppx not indicated diet hepatic critical care time 40 minutes Plan discussed with: Patient My Orders Orders - VA ALEXANDER MD Procedure Category Date Status Time Body Fluid Culture W/ DRISS 01/25/25 In Process GS 16:22 Body Fluids, Diff. LAB 01/25/25 In Process Cell Count 16:22 Protein, Body Fluid LAB 01/25/25 In Process 16:22 Lactate LAB 01/25/25 In Process Dehydrogenase, Fluid 16:22 Cytology DRISS 01/25/25 Transmitted 16:22 Complete Blood Count LAB 01/26/25 Verified 04:00 Comprehensive LAB 01/26/25 Verified Metabolic Panel 04:00 Magnesium LAB 01/26/25 Verified 04:00 Sodium Chl 0.9% PHA 01/25/25 In Process (Ns... 19:30 Date of Service: Jan 25, 2025 Billing Provider: VA ALEXANDER MD Common Visit Codes: [id number] CARE 30-74 MIN VA ALEXANDER MD Jan 25, 2025 20:13
[2025-01-25] MEDS: NOREPINEPHRINE BITARTRATE 32 MG in SODIUM CHL 0.9% 218 ML IV SCH (21:11)
[2025-01-26] VITALS (107 sets, daily range): BP systolic 76–122; BP diastolic 35–74; PULSE 55–101; RESP 10–26; TEMP 97.5–98.8; O2SAT 94–100
[2025-01-26 05:04] LABS: Basophils # (auto) 0.1 10 ^3/uL (0-0.2); Basophils % (auto) 0.9 % (0.0-2.0); Eosinophils # (auto) 0 10 ^3/uL (0-0.8); Eosinophils % (auto) 0.1 % (0.0-7.0); Hematocrit 28.2 % (41.0-53.0); Hemoglobin 9.8 g/dL (13.5-17.5); Lymphocytes # (auto) 0.7 10 ^3/uL (0.4-5.4); Mean Corpuscular Hemoglobin 32.4 pg (28.0-32.0); Mean Corpuscular Hgb Conc. 34.6 g/dL (32.0-36.0); Mean Corpuscular Volume 93.6 fL (80.0-100.0); Monocytes # (auto) 1.3 10 ^3/uL (0-1.3); Monocytes % (auto) 10.6 % (0.0-12.0); Neutrophils % (auto) 82.4 % (37.0-80.0); Platelet Count (auto) 144 10^3/uL (140-450); Red Blood Cells 3.02 10^6/uL (4.5-5.90); Red Cell Distribution Width 16.7 % (11.8-14.3); White Blood Cell 12.2 10^3/uL (4.4-10.8)
[2025-01-26 05:49] LABS: Alanine Aminotransferase 27 U/L (7-40); Alkaline Phosphatase 111 U/L (46-116); Anion Gap 7 (5-15); BUN/Creatinine Ratio 17.6 (10.0-20.0); Carbon Dioxide 25 mmol/L (20-31); Potassium 4.2 mmol/L (3.5-5.1)
[2025-01-26 06:06] LABS: Albumin 2.5 g/dL (3.2-4.8); Aspartate Aminotransferase 68 U/L (13-40); Bilirubin, Total 2.1 mg/dL (0.2-1.0); Blood Urea Nitrogen 31 mg/dL (9-23); Calcium 8.6 mg/dL (8.7-10.4); Chloride 98 mmol/L (98-107); Glucose 134 mg/dL (74-106); Sodium 130 mmol/L (136-145); Total Protein 5.2 g/dL (5.7-8.2)
[2025-01-26 06:41] LABS: Large Platelets FEW
[2025-01-26 06:42] LABS: Giant Platelets Few; Platelet Estimate Adequate
--- NOTE | 2025-01-26 10:27 | DVHPN2 ---
Assessment/Plan Assessment/Plan ICU note 64 M with alcoholic cirrhosis seen today during rounds, pressors restarted overnight, worsening RODOLFO, will give bolus, strict I&O w/o rob, c/w PT, will put higher MAP treshold. physical exam aox3 clear breath sounds s1 s2 rrr abdomen distended, fluid shift + no sx of hepatic encep no LE edema labs ekg imaging reviewed no SBP in new para assessment and plan cirrhosis with ascites distributive shock hyperkalemia lactic acidosis hyperbilirubinemia transminitis anemia normocytic anemia hyponatremia ascites s/p paracentesis possible colitis rodolfo vmn oliguria hepatic encephalopathy? (resolved) presumed adrenal insufficiency c/w pressors maintain map >70 start midodrine 15 TID s/p repeat para 4L removed c/w lactulose, aim for 2-3 BM per day c/w 50 q6 hydrocortisone dc flagyl, c/w ceft protonix renal consult appreciated gi consult appreciated fluid restriction albumin no need to trend ammonia place midline PICC and then DC TLC bolus 500 trend cr lines fem TLC - remove L basilic midline condition critical prognosis poor full code dvt ppx lovenox gi ppx not indicated diet hepatic critical care time 60 minutes Plan discussed with: Patient My Orders Orders - VA ALEXANDER MD Procedure Category Date Status Time Body Fluid Culture W/ DRISS 01/25/25 In Process GS 16:22 Protein, Body Fluid LAB 01/25/25 In Process 16:22 Lactate LAB 01/25/25 In Process Dehydrogenase, Fluid 16:22 Cytology DRISS 01/25/25 Transmitted 16:22 Hydrocodone-Acet PHA 01/25/25 In Process 5/325mg Tab (Masury 20:15 Sodium Chloride 0.9% PHA 01/26/25 Logged 10:30 Basic Metabolic Panel LAB 01/26/25 Logged 12:00 Date of Service: Jan 26, 2025 Billing Provider: VA ALEXANDER MD Common Visit Codes: [id number] CARE 30-74 MIN VA ALEXANDER MD Jan 26, 2025 10:27
[2025-01-26] MEDS: SODIUM CHLORIDE 0.9% 500 ML IV ONE (10:30)
[2025-01-26 12:44] LABS: Chloride 99 mmol/L (98-107); Potassium 3.6 mmol/L (3.5-5.1)
[2025-01-26 12:45] LABS: Anion Gap 8 (5-15); Carbon Dioxide 26 mmol/L (20-31)
[2025-01-26 12:51] LABS: BUN/Creatinine Ratio 19.5 (10.0-20.0); Sodium 133 mmol/L (136-145)
[2025-01-26 12:52] LABS: Blood Urea Nitrogen 34 mg/dL (9-23); Calcium 8.4 mg/dL (8.7-10.4); Glucose 150 mg/dL (74-106)
--- NOTE | 2025-01-26 20:04 | DVHPN2 ---
Progress Note - Dictate Date Seen: Jan 26, 2025 Medical Necessity Reason Pt with a Central, PICC or Fol: No Subjective Repeat paracentesis on 01/25 w/ 4 L off. Remains on levo. On room air. Oral intake is adequate, consuming 75% of meals consistently. Patient is downgraded to tele Awake alert and offers no complaints Hemoglobin and liver enzymes are stable vital signs Vital Sign Date Time Temp Pulse Resp B/P (MAP) Pulse Ox O2 Delivery O2 Flow Rate FiO2 01/26/25 18:45 71 20 112/67 (82) 99 01/26/25 17:34 Room Air* 0 21 01/26/25 16:00 97.5 97.5 Total Intake and Output 01/25/25 01/25/25 01/26/25 15:00 23:00 07:00 Intake Total 50 ml 556.226 ml 23.126 ml Output Total 100 ml 225 ml Balance 50 ml 456.226 ml -201.874 ml medications Current Medications Medications Dose Ordered Sig/Gaston Route Start Time Stop Time Status Last Admin Dose Admin Acetaminophen 650 mg Q6HP PRN PO 01/16/25 14:30 Thiamine HCl 100 mg DAILY PO 01/17/25 10:00 01/26/25 07:23 100 MG Ceftriaxone Sodium 50 ml @ 100 mls/hr DAILY@09 IV 01/18/25 09:00 01/26/25 07:24 100 MLS/HR Magnesium Oxide 400 mg DAILY PO 01/17/25 13:45 01/26/25 07:23 400 MG Furosemide 40 mg BIDD IV 01/17/25 15:16 01/26/25 17:44 40 MG Pantoprazole Sodium 40 mg BID IV 01/17/25 22:00 01/26/25 07:23 40 MG Zirconium Oxide 5 gm DAILY PO 01/17/25 22:00 Hold 01/19/25 08:02 5 GM Midodrine 15 mg TID@0600,1200,1800 PO 01/19/25 18:00 01/26/25 17:44 15 MG Lactulose 30 ml DAILY PO 01/20/25 10:00 01/26/25 07:23 30 ML Hydrocortisone Sodium Succinate 50 mg Q6H IV 01/24/25 15:00 01/26/25 14:34 50 MG Acetaminophen/ Hydrocodone Bitart 1 tab Q6HPRN PRN PO 01/25/25 20:15 Norepinephrine Bitartrate 32 mg/ Sodium Chloride 250 ml @ 0.938 mls/ hr Q24H IV 01/25/25 21:00 01/25/25 21:11 0.938 MLS/HR objective aox3 clear breath sounds s1 s2 rrr abdomen distended, fluid shift + no sx of hepatic encep no LE edema laboratory and microbiology Laboratory Tests 01/26/25 12:15 01/26/25 04:30 Test 01/26/25 12:15 Range/Units Serum Glucose 150 H 74-106 mg/dL Problems(with codes): (1) Hepatic encephalopathy (2) Elevated liver enzymes (3) Coagulopathy (4) Cirrhosis of liver with ascites Prognosis PLAN Medications have been reviewed Patient appears to have stabilized from a GI point of view He is requiring lactulose 30 mL once a day He is still on steroids 50 mg every 6 hours Consider tapering that down over next few days and change to oral steroids Dietary Evaluation Review Comments: 1. Agree with 2 gm Na diet, 1 L fluid/day per nephrology 2. Encourage good oral intakes >75% of meals, snacks PRN 3. May consider Ensure Enlive 1x/day to enhance caloric and protein intake if within fluid restriction limitations (provides 350 kcal, 20 gm pro, 237 ml fluid) Expected Outcomes/Goals: Adequate nutrition, improved lab values. Plan discussed with: Patient GABRIELLA MAZARIEGOS MD Jan 26, 2025 20:04
[2025-01-27] VITALS (63 sets, daily range): BP systolic 76–188; BP diastolic 33–88; PULSE 55–125; RESP 13–28; TEMP 97.7–98.2; O2SAT 95–100
[2025-01-27 05:47] LABS: Basophils # (auto) 0 10 ^3/uL (0-0.2); Basophils % (auto) 0.1 % (0.0-2.0); Eosinophils # (auto) 0 10 ^3/uL (0-0.8); Hematocrit 28.2 % (41.0-53.0); Hemoglobin 9.6 g/dL (13.5-17.5); Lymphocytes # (auto) 0.7 10 ^3/uL (0.4-5.4); Lymphocytes % (auto) 6.5 % (10.0-50.0); Mean Corpuscular Hemoglobin 32.3 pg (28.0-32.0); Mean Corpuscular Hgb Conc. 34.2 g/dL (32.0-36.0); Mean Corpuscular Volume 94.6 fL (80.0-100.0); Monocytes # (auto) 1.5 10 ^3/uL (0-1.3); Monocytes % (auto) 14.4 % (0.0-12.0); Neutrophils # (auto) 8.4 10 ^3/uL (1.6-8.6); Nucleated Red Blood Cells % 0.1 %; Platelet Count (auto) 122 10^3/uL (140-450); Red Blood Cells 2.98 10^6/uL (4.5-5.90); White Blood Cell 10.7 10^3/uL (4.4-10.8)
[2025-01-27 05:58] LABS: Alanine Aminotransferase 32 U/L (7-40); Alkaline Phosphatase 112 U/L (46-116); Anion Gap 6 (5-15); Carbon Dioxide 24 mmol/L (20-31); Chloride 100 mmol/L (98-107); Potassium 3.9 mmol/L (3.5-5.1)
[2025-01-27 06:05] LABS: Albumin 2.2 g/dL (3.2-4.8); Aspartate Aminotransferase 62 U/L (13-40); Bilirubin, Total 2.1 mg/dL (0.2-1.0); Blood Urea Nitrogen 33 mg/dL (9-23); Calcium 8.4 mg/dL (8.7-10.4); Glucose 145 mg/dL (74-106); Sodium 130 mmol/L (136-145); Total Protein 4.8 g/dL (5.7-8.2)
--- NOTE | 2025-01-27 12:36 | DVHPN2 ---
Assessment/Plan Assessment/Plan ICU note 64 M with alcoholic cirrhosis seen today during rounds, cr stable. hypotensive when sleeping, still on stress steroid[facility], cw PT physical exam aox3 clear breath sounds s1 s2 rrr abdomen distended, fluid shift + no sx of hepatic encep no LE edema labs ekg imaging reviewed no SBP in new para assessment and plan cirrhosis with ascites distributive shock hyperkalemia lactic acidosis hyperbilirubinemia transminitis anemia normocytic anemia hyponatremia ascites s/p paracentesis possible colitis ag vmn oliguria hepatic encephalopathy? (resolved) presumed adrenal insufficiency c/w pressors maintain map >70 start midodrine 15 TID s/p repeat para 4L removed c/w lactulose, aim for 2-3 BM per day c/w 50 q6 hydrocortisone dc flagyl, c/w ceft protonix renal consult appreciated gi consult appreciated fluid restriction albumin no need to trend ammonia place midline PICC and then DC TLC trend cr lines fem TLC - remove L basilic midline condition critical prognosis poor full code dvt ppx lovenox gi ppx not indicated diet hepatic critical care time 40 minutes Plan discussed with: Patient Date of Service: Jan 27, 2025 Billing Provider: VA ALEXANDER MD Common Visit Codes: [id number] CARE 30-74 MIN VA ALEXANDER MD Jan 27, 2025 12:36
--- NOTE | 2025-01-27 13:18 | DVHPN2 ---
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* Patient seen and examined Overnight events reviewed vital signs Vital Sign Date Time Temp Pulse Resp B/P (MAP) Pulse Ox O2 Delivery O2 Flow Rate FiO2 01/27/25 12:01 18 98 Room Air* 0 21 01/27/25 12:00 63 111/64 (80) 01/27/25 08:01 98.0 98.0 Total Intake and Output 01/26/25 01/26/25 01/27/25 15:00 23:00 07:00 Intake Total 550 ml 700 ml 11.251 ml Output Total 500 ml 500 ml Balance 550 ml 200 ml -488.749 ml medications Current Medications Medications Dose Ordered Sig/Gaston Route Start Time Stop Time Status Last Admin Dose Admin Acetaminophen 650 mg Q6HP PRN PO 01/16/25 14:30 Thiamine HCl 100 mg DAILY PO 01/17/25 10:00 01/27/25 08:17 100 MG Ceftriaxone Sodium 50 ml @ 100 mls/hr DAILY@09 IV 01/18/25 09:00 01/27/25 08:17 100 MLS/HR Magnesium Oxide 400 mg DAILY PO 01/17/25 13:45 01/27/25 08:17 400 MG Furosemide 40 mg BIDD IV 01/17/25 15:16 01/27/25 05:27 40 MG Pantoprazole Sodium 40 mg BID IV 01/17/25 22:00 01/27/25 08:17 40 MG Zirconium Oxide 5 gm DAILY PO 01/17/25 22:00 Hold 01/19/25 08:02 5 GM Midodrine 15 mg TID@0600,1200,1800 PO 01/19/25 18:00 01/27/25 10:09 15 MG Lactulose 30 ml DAILY PO 01/20/25 10:00 01/27/25 08:17 30 ML Hydrocortisone Sodium Succinate 50 mg Q6H IV 01/24/25 15:00 01/27/25 10:09 50 MG Acetaminophen/ Hydrocodone Bitart 1 tab Q6HPRN PRN PO 01/25/25 20:15 Norepinephrine Bitartrate 32 mg/ Sodium Chloride 250 ml @ 0.938 mls/ hr Q24H IV 01/25/25 21:00 01/25/25 21:11 0.938 MLS/HR laboratory and microbiology Laboratory Tests 01/27/25 05:22 Test 01/27/25 05:22 Range/Units Serum Glucose 145 H 74-106 mg/dL Assessment/Plan Impression Acute hypoxemic respiratory failure Coagulopathy Liver cirrhosis Ascites Patient seen and examined in NEY[facility] Events Low oxygen requirements On room air On Levophed drip for hemodynamic support Abdomen appears distended S/p paracentesis Labs and imaging reviewed Management Supplemental oxygen as needed Titrate to maintain sats 90% or above Incentive spirometry Continue antibiotics f/u cultures Bronchodilators Stress-dose steroids Diurese with Lasix Add Spironolactone 50mg BID Monitor renal function Monitor electrolytes Supplement as needed Pressors as needed for hemodynamic support To maintain a mean arterial pressure of 65 mmHg If hemodynamics remains stable, okay to downgrade later in the day DVT prophylaxis Critical care time 35 minutes Dietary Evaluation Review Comments: 1. Agree with 2 gm Na diet, 1 L fluid/day per nephrology 2. Encourage good oral intakes >75% of meals, snacks PRN 3. May consider Ensure Enlive 1x/day to enhance caloric and protein intake if within fluid restriction limitations (provides 350 kcal, 20 gm pro, 237 ml fluid) Expected Outcomes/Goals: Adequate nutrition, improved lab values. Plan discussed with: Patient RORY KELLER MD Jan 27, 2025 13:18
[2025-01-27] MEDS: SPIRONOLACTONE 25 MG TAB PO SCH (18:00)
--- NOTE | 2025-01-27 18:08 | DVHPN2 ---
Progress Note - Dictate Date Seen: Jan 27, 2025 Medical Necessity Reason Pt with a Central, PICC or Fol: Yes The following are medically ne: Central Line, Anderson Catheter Subjective Repeat paracentesis on 01/25 w/ 4 L off. Remains on levo. On room air. Awake alert and offers no complaints Hemoglobin and liver enzymes are stable vital signs Vital Sign Date Time Temp Pulse Resp B/P (MAP) Pulse Ox O2 Delivery O2 Flow Rate FiO2 01/27/25 16:15 78 16 96/51 (66) 97 01/27/25 16:04 Room Air* 0 21 01/27/25 12:00 97.7 97.7 Total Intake and Output 01/26/25 01/26/25 01/27/25 15:00 23:00 07:00 Intake Total 550 ml 700 ml 11.251 ml Output Total 500 ml 500 ml Balance 550 ml 200 ml -488.749 ml medications Current Medications Medications Dose Ordered Sig/Gaston Route Start Time Stop Time Status Last Admin Dose Admin Acetaminophen 650 mg Q6HP PRN PO 01/16/25 14:30 Thiamine HCl 100 mg DAILY PO 01/17/25 10:00 01/27/25 08:17 100 MG Ceftriaxone Sodium 50 ml @ 100 mls/hr DAILY@09 IV 01/18/25 09:00 01/27/25 08:17 100 MLS/HR Magnesium Oxide 400 mg DAILY PO 01/17/25 13:45 01/27/25 08:17 400 MG Furosemide 40 mg BIDD IV 01/17/25 15:16 01/27/25 05:27 40 MG Pantoprazole Sodium 40 mg BID IV 01/17/25 22:00 01/27/25 08:17 40 MG Zirconium Oxide 5 gm DAILY PO 01/17/25 22:00 Hold 01/19/25 08:02 5 GM Midodrine 15 mg TID@0600,1200,1800 PO 01/19/25 18:00 01/27/25 18:00 15 MG Lactulose 30 ml DAILY PO 01/20/25 10:00 01/27/25 08:17 30 ML Hydrocortisone Sodium Succinate 50 mg Q6H IV 01/24/25 15:00 01/27/25 14:50 50 MG Acetaminophen/ Hydrocodone Bitart 1 tab Q6HPRN PRN PO 01/25/25 20:15 Spironolactone 50 mg BIDD PO 01/27/25 18:00 01/27/25 18:00 50 MG objective aox3 clear breath sounds s1 s2 rrr abdomen distended, fluid shift + no sx of hepatic encep no LE edema laboratory and microbiology Laboratory Tests 01/27/25 05:22 Test 01/27/25 05:22 Range/Units Serum Glucose 145 H 74-106 mg/dL Problems(with codes): (1) Hepatic encephalopathy (2) Elevated liver enzymes (3) Coagulopathy (4) Cirrhosis of liver with ascites Prognosis PLAN Medications have been reviewed Patient appears to have stabilized from a GI point of view He is requiring lactulose 30 mL once a day Taper steroids and start PT Dietary Evaluation Review Comments: 1. Agree with 2 gm Na diet, 1 L fluid/day per nephrology 2. Encourage good oral intakes >75% of meals, snacks PRN 3. May consider Ensure Enlive 1x/day to enhance caloric and protein intake if within fluid restriction limitations (provides 350 kcal, 20 gm pro, 237 ml fluid) Expected Outcomes/Goals: Adequate nutrition, improved lab values. Plan discussed with: Other (None) GABRIELLA MAZARIEGOS MD Jan 27, 2025 18:08
[2025-01-28] VITALS (10 sets, daily range): BP systolic 100–121; BP diastolic 52–71; PULSE 69–83; RESP 16–18; TEMP 97.7–98.3; O2SAT 95–97
[2025-01-28] MEDS: HYDROcodone-ACET 5/325MG TAB PO PRN (01:08)
[2025-01-28 06:29] LABS: Basophils # (auto) 0 10 ^3/uL (0-0.2); Basophils % (auto) 0.1 % (0.0-2.0); Eosinophils # (auto) 0 10 ^3/uL (0-0.8); Hemoglobin 9.9 g/dL (13.5-17.5); Lymphocytes # (auto) 0.6 10 ^3/uL (0.4-5.4); Lymphocytes % (auto) 5.4 % (10.0-50.0); Mean Corpuscular Hemoglobin 32.1 pg (28.0-32.0); Mean Corpuscular Hgb Conc. 34.1 g/dL (32.0-36.0); Mean Corpuscular Volume 94.3 fL (80.0-100.0); Monocytes # (auto) 1.1 10 ^3/uL (0-1.3); Monocytes % (auto) 10.4 % (0.0-12.0); Neutrophils % (auto) 84.1 % (37.0-80.0); Nucleated Red Blood Cells % 0.1 %; Platelet Count (auto) 116 10^3/uL (140-450); Red Blood Cells 3.08 10^6/uL (4.5-5.90); White Blood Cell 10.7 10^3/uL (4.4-10.8)
[2025-01-28 06:38] LABS: Alanine Aminotransferase 35 U/L (7-40); Anion Gap 9 (5-15); BUN/Creatinine Ratio 21.1 (10.0-20.0); Carbon Dioxide 24 mmol/L (20-31); Chloride 99 mmol/L (98-107); Magnesium 1.9 mg/dL (1.6-2.6)
[2025-01-28 07:07] LABS: Albumin 2.3 g/dL (3.2-4.8); Alkaline Phosphatase 118 U/L (46-116); Aspartate Aminotransferase 74 U/L (13-40); Bilirubin, Total 2.2 mg/dL (0.2-1.0); Blood Urea Nitrogen 37 mg/dL (9-23); Calcium 8.5 mg/dL (8.7-10.4); Glucose 154 mg/dL (74-106); Sodium 132 mmol/L (136-145)
--- NOTE | 2025-01-28 13:35 | DVHPN2 ---
Progress Note - Dictate Date Seen: Jan 28, 2025 Medical Necessity Reason Pt with a Central, PICC or Fol: Yes The following are medically ne: Central Line, Anderson Catheter Subjective *Overcoil Stepper rounds* Patient seen and examined Overnight events reviewed vital signs Vital Sign Date Time Temp Pulse Resp B/P (MAP) Pulse Ox O2 Delivery O2 Flow Rate FiO2 01/28/25 13:00 98.1 82 18 106/56 (73) 97 98.1 01/28/25 10:00 Room Air* 0 21 Total Intake and Output 01/27/25 01/27/25 01/28/25 15:00 23:00 07:00 Intake Total 50 ml 740 ml 280 ml Output Total 625 ml 100 ml Balance 50 ml 115 ml 180 ml medications Current Medications Medications Dose Ordered Sig/Gaston Route Start Time Stop Time Status Last Admin Dose Admin Acetaminophen 650 mg Q6HP PRN PO 01/16/25 14:30 Thiamine HCl 100 mg DAILY PO 01/17/25 10:00 01/28/25 09:34 100 MG Ceftriaxone Sodium 50 ml @ 100 mls/hr DAILY@09 IV 01/18/25 09:00 01/28/25 09:34 100 MLS/HR Magnesium Oxide 400 mg DAILY PO 01/17/25 13:45 01/28/25 09:34 400 MG Pantoprazole Sodium 40 mg BID IV 01/17/25 22:00 01/28/25 09:34 40 MG Zirconium Oxide 5 gm DAILY PO 01/17/25 22:00 Hold 01/19/25 08:02 5 GM Midodrine 15 mg TID@0600,1200,1800 PO 01/19/25 18:00 01/28/25 13:01 15 MG Lactulose 30 ml DAILY PO 01/20/25 10:00 01/28/25 09:34 30 ML Hydrocortisone Sodium Succinate 50 mg Q6H IV 01/24/25 15:00 01/28/25 09:34 50 MG Acetaminophen/ Hydrocodone Bitart 1 tab Q6HPRN PRN PO 01/25/25 20:15 01/28/25 01:08 1 TAB Furosemide 40 mg DAILY PO 01/29/25 10:00 Spironolactone 100 mg DAILY PO 01/29/25 10:00 laboratory and microbiology Laboratory Tests 01/28/25 05:40 Test 4/13/25 05:40 Range/Units Serum Glucose 154 H 74-106 mg/dL Assessment/Plan Impression Acute hypoxemic respiratory failure Coagulopathy Liver cirrhosis Ascites Patient seen and examined Events s/p d/grade better abd distended cont diuretics, lasix pls aldactone salt restriction ?rpt paracentesis Monitor renal function Monitor electrolytes Supplement as needed Continue antibiotics f/u cultures Bronchodilators Stress-dose steroids taper Dietary Evaluation Review Comments: 1. Agree with 2 gm Na diet, 1 L fluid/day per nephrology 2. Encourage good oral intakes >75% of meals, snacks PRN 3. May consider Ensure Enlive 1x/day to enhance caloric and protein intake if within fluid restriction limitations (provides 350 kcal, 20 gm pro, 237 ml fluid) Expected Outcomes/Goals: Adequate nutrition, improved lab values. Plan discussed with: Other (ana roper) RORY KELLER MD Jan 28, 2025 13:34
--- NOTE | 2025-01-28 16:56 | DVHPN2 ---
Assessment/Plan Assessment/Plan progress note 64 M with alcoholic cirrhosis seen today during rounds, cr stable. taper steroid, c/w PT, dispo plan physical exam aox3 clear breath sounds s1 s2 rrr abdomen distended, fluid shift + no sx of hepatic encep no LE edema labs ekg imaging reviewed no SBP in new para assessment and plan cirrhosis with ascites distributive shock hyperkalemia lactic acidosis hyperbilirubinemia transminitis anemia normocytic anemia hyponatremia ascites s/p paracentesis possible colitis ag vmn oliguria hepatic encephalopathy? (resolved) presumed adrenal insufficiency c/w pressors maintain map >70 start midodrine 15 TID s/p repeat para 4L removed c/w lactulose, aim for 2-3 BM per day c/w 50 q6 hydrocortisone dc flagyl, c/w ceft protonix renal consult appreciated gi consult appreciated fluid restriction albumin no need to trend ammonia place midline PICC and then DC TLC trend cr taper steroid lines fem TLC - remove L basilic midline condition critical prognosis poor full code dvt ppx lovenox gi ppx not indicated diet hepatic critical care time 40 minutes Plan discussed with: Patient My Orders Orders - [facility] ALEXANDER MD Procedure Category Date Status Time Furosemide Tablet PHA 01/29/25 In Process (Lasix Tablet) 10:00 Spironolactone PHA 01/29/25 In Process (Aldactone) 10:00 Date of Service: Jan 28, 2025 Billing Provider: VA ALEXANDER MD Common Visit Codes: [id number] INP/OBS CARE(HIGH) VA ALEXANDER MD Jan 28, 2025 16:56
--- NOTE | 2025-01-28 22:22 | DVHPN2 ---
Progress Note - Dictate Date Seen: Jan 28, 2025 Medical Necessity Reason Pt with a Central, PICC or Fol: Yes The following are medically ne: Central Line, Anderson Catheter Subjective Awake alert and offers no complaints Hemoglobin and liver enzymes are stable vital signs Vital Sign Date Time Temp Pulse Resp B/P (MAP) Pulse Ox O2 Delivery O2 Flow Rate FiO2 01/28/25 21:00 98.1 75 16 107/71 (83) 96 98.1 01/28/25 20:17 Room Air* 0 21 Total Intake and Output 01/27/25 01/27/25 01/28/25 15:00 23:00 07:00 Intake Total 50 ml 740 ml 280 ml Output Total 625 ml 100 ml Balance 50 ml 115 ml 180 ml medications Current Medications Medications Dose Ordered Sig/Gaston Route Start Time Stop Time Status Last Admin Dose Admin Acetaminophen 650 mg Q6HP PRN PO 01/16/25 14:30 Thiamine HCl 100 mg DAILY PO 01/17/25 10:00 01/28/25 09:34 100 MG Ceftriaxone Sodium 50 ml @ 100 mls/hr DAILY@09 IV 01/18/25 09:00 01/28/25 09:34 100 MLS/HR Magnesium Oxide 400 mg DAILY PO 01/17/25 13:45 01/28/25 09:34 400 MG Pantoprazole Sodium 40 mg BID IV 01/17/25 22:00 01/28/25 21:21 40 MG Zirconium Oxide 5 gm DAILY PO 01/17/25 22:00 Hold 01/19/25 08:02 5 GM Midodrine 15 mg TID@0600,1200,1800 PO 01/19/25 18:00 01/28/25 17:57 15 MG Lactulose 30 ml DAILY PO 01/20/25 10:00 01/28/25 09:34 30 ML Acetaminophen/ Hydrocodone Bitart 1 tab Q6HPRN PRN PO 01/25/25 20:15 01/28/25 21:30 1 TAB Furosemide 40 mg DAILY PO 01/29/25 10:00 Spironolactone 100 mg DAILY PO 01/29/25 10:00 Hydrocortisone 40 mg Q6HR PO 01/29/25 00:00 objective aox3 clear breath sounds s1 s2 rrr abdomen distended, fluid shift + no sx of hepatic encep no LE edema laboratory and microbiology Laboratory Tests 01/28/25 05:40 Test 01/28/25 05:40 Range/Units Serum Glucose 154 H 74-106 mg/dL Problems(with codes): (1) Hepatic encephalopathy (2) Elevated liver enzymes (3) Coagulopathy (4) Cirrhosis of liver with ascites Prognosis PLAN Patient appears to have stabilized from a GI point of view He is requiring lactulose 30 mL once a day Taper steroids and start PT Possible repeat paracentesis prior to discharge in a.m. Patient will follow up with GI Services as an outpatient to arrange outpatient elective paracentesis and monitor his liver condition Dietary Evaluation Review Comments: 1. Agree with 2 gm Na diet, 1 L fluid/day per nephrology 2. Encourage good oral intakes >75% of meals, snacks PRN 3. May consider Ensure Enlive 1x/day to enhance caloric and protein intake if within fluid restriction limitations (provides 350 kcal, 20 gm pro, 237 ml fluid) Expected Outcomes/Goals: Adequate nutrition, improved lab values. Plan discussed with: Patient GABRIELLA MAZARIEGOS MD Jan 28, 2025 22:22
[2025-01-29] VITALS (7 sets, daily range): BP systolic 103–122; BP diastolic 49–79; PULSE 67–98; RESP 16–18; TEMP 98–98.9; O2SAT 97–100
[2025-01-29] MEDS: HYDROCORTISONE 10 MG TAB PO SCH (01:14)
[2025-01-29 07:17] LABS: Basophils # (auto) 0 10 ^3/uL (0-0.2); Basophils % (auto) 0.1 % (0.0-2.0); Eosinophils # (auto) 0 10 ^3/uL (0-0.8); Hematocrit 30.8 % (41.0-53.0); Hemoglobin 10.3 g/dL (13.5-17.5); Lymphocytes # (auto) 0.7 10 ^3/uL (0.4-5.4); Lymphocytes % (auto) 5.4 % (10.0-50.0); Mean Corpuscular Hemoglobin 31.9 pg (28.0-32.0); Mean Corpuscular Hgb Conc. 33.5 g/dL (32.0-36.0); Monocytes # (auto) 1.5 10 ^3/uL (0-1.3); Monocytes % (auto) 11.2 % (0.0-12.0); Neutrophils # (auto) 11.4 10 ^3/uL (1.6-8.6); Neutrophils % (auto) 83.3 % (37.0-80.0); Nucleated Red Blood Cells % 0.1 %; Platelet Count (auto) 124 10^3/uL (140-450); Red Blood Cells 3.24 10^6/uL (4.5-5.90); Red Cell Distribution Width 17.3 % (11.8-14.3); White Blood Cell 13.7 10^3/uL (4.4-10.8)
[2025-01-29 07:32] LABS: Potassium 4.3 mmol/L (3.5-5.1)
[2025-01-29 07:33] LABS: Anion Gap 7 (5-15); Carbon Dioxide 25 mmol/L (20-31); Chloride 98 mmol/L (98-107); Sodium 130 mmol/L (136-145)
[2025-01-29 07:34] LABS: Calcium 8.7 mg/dL (8.7-10.4)
[2025-01-29 07:38] LABS: BUN/Creatinine Ratio 23.4 (10.0-20.0)
[2025-01-29 07:42] LABS: Blood Urea Nitrogen 41 mg/dL (9-23); Glucose 120 mg/dL (74-106)
[2025-01-29] MEDS: SPIRONOLACTONE 25 MG TAB PO SCH (09:09)
[2025-01-29] MEDS: FUROSEMIDE 20 MG TAB PO SCH (09:10)
[2025-01-29] MEDS ORDERED: LIDOCAINE 1% HCL (LOCAL ANESTH.) INJ 20ML MDV ID ONE (14:45)
[2025-01-29] MEDS ORDERED: HYDR10T PO (16:41)
[2025-01-29] MEDS ORDERED: MIDO5TAB22 PO (16:41)
[2025-01-29] MEDS ORDERED: HYDR-4902 PO (16:41)
[2025-01-29] MEDS ORDERED: FURO40TA4 PO (16:41)
[2025-01-29] MEDS ORDERED: SPIR100T4 PO (16:41)
[2025-01-29] MEDS ORDERED: LACT10SO3 PO (16:41)
--- NOTE | 2025-01-29 16:45 | DVHDS2 ---
Discharge Summary Date of Admission Jan 16, 2025 at 14:26 Date of Discharge: Jan 29, 2025 Labs/Diagnostic Data: Laboratory Results Test 01/29/25 06:11 01/28/25 05:40 01/26/25 04:30 01/25/25 15:30 White Blood Count 13.7 10^3/uL (4.4-10.8) Red Blood Count 3.24 10^6/uL (4.5-5.90) Hemoglobin 10.3 g/dL (13.5-17.5) Hematocrit 30.8 % (41.0-53.0) Mean Corpuscular Volume 95.0 fL (80.0-100.0) Mean Corpuscular Hemoglobin 31.9 pg (28.0-32.0) Mean Corpuscular Hemoglobin Concent 33.5 g/dL (32.0-36.0) Red Cell Distribution Width 17.3 % (11.8-14.3) Platelet Count 124 10^3/uL (140-450) Mean Platelet Volume 8.7 fL (6.9-10.8) Neutrophils (%) (Auto) 83.3 % (37.0-80.0) Lymphocytes (%) (Auto) 5.4 % (10.0-50.0) Monocytes (%) (Auto) 11.2 % (0.0-12.0) Eosinophils (%) (Auto) 0.0 % (0.0-7.0) Basophils (%) (Auto) 0.1 % (0.0-2.0) Neutrophils # (Auto) 11.4 10 ^3/uL (1.6-8.6) Lymphocytes # (Auto) 0.7 10 ^3/uL (0.4-5.4) Monocytes # (Auto) 1.5 10 ^3/uL (0-1.3) Eosinophils # (Auto) 0 10 ^3/uL (0-0.8) Basophils # (Auto) 0 10 ^3/uL (0-0.2) Nucleated Red Blood Cells 0.1 % Sodium Level 130 mmol/L (136-145) Potassium Level 4.3 mmol/L (3.5-5.1) Chloride Level 98 mmol/L (98-107) Carbon Dioxide Level 25 mmol/L (20-31) Anion Gap 7 (5-15) Blood Urea Nitrogen 41 mg/dL (9-23) Creatinine 1.75 mg/dL (0.700-1.30) Glomerular Filtration Rate Calc 43 mL/min (>90) BUN/Creatinine Ratio 23.4 (10.0-20.0) Serum Glucose 120 mg/dL (74-106) Calcium Level 8.7 mg/dL (8.7-10.4) Magnesium Level 1.9 mg/dL (1.6-2.6) Total Bilirubin 2.2 mg/dL (0.2-1.0) Aspartate Amino Transferase (AST) 74 U/L (13-40) Alanine Aminotransferase (ALT) 35 U/L (7-40) Alkaline Phosphatase 118 U/L (46-116) Total Protein 5.0 g/dL (5.7-8.2) Albumin 2.3 g/dL (3.2-4.8) Platelet Estimate Adequate Large Platelets Few Giant Platelets Few Body Fluid Source Ascities fluid Body Fluid WBC (Manual) 187 CUMM (0-200) Body Fluid RBC (Manual) 62 CUMM (0-2000) Body Fluid Mononuclear Cells 82 % Body Fluid Polymorphonuclear Cells 18 % (0-25) Body Fluid Total Protein 1.0 g/dL (.) Body Fluid Lactate Dehydrogenase 53 IU/L (.) Test 01/25/25 03:25 01/24/25 08:20 01/24/25 03:20 01/20/25 04:00 Phosphorus Level 2.9 mg/dL (2.4-5.1) Ammonia 10 umol/L (11-32) Cortisol AM Sample 5.20 ug/dL (5.27-22.45) Differential Total Cells Counted 100.0 (100) Neutrophils % (Manual) 48 (37.0-80.0) Band Neutrophils % (Manual) 0 Lymphocytes % (Manual) 33 (10.0-50.0) Monocytes % (Manual) 12 (0-12) Eosinophils % (Manual) 6 (0-7) Basophils % (Manual) 0 (0.0-2.0) Metamyelocytes % (manual) 0 Myelocytes % (Manual) 1 Promyelocytes % (Manual) 0 Blast Cells % (Manual) 0 Reactive Lymphocytes 0 Schistocytes Few Hepatitis A Antibody Total Positive (Negative) Hepatitis B Surface Antigen Negative (Negative) Hepatitis B Surface Antibody Negative (Negative) Hepatitis B Core Total Antibody Negative (Negative) Hepatitis C Antibody Negative (Negative) Test 01/19/25 03:25 01/17/25 01:25 01/16/25 18:29 01/16/25 09:35 Anisocytosis (manual) Slight Urine Color Yellow (Yellow) Urine Clarity Clear (Clear) Urine pH 5.0 (5.0-9.0) Urine Specific [place] 1.012 (1.001-1.035) Urine Protein Negative (Negative) Urine Ketones Negative (Negative) Urine Blood Negative /uL (Negative) Urine Nitrite Negative (Negative) Urine Bilirubin Negative (Negative) Urine Urobilinogen Normal mg/dL (Negative) Urine Leukocyte Esterase Negative /uL (Negative) Urine RBC 1 /hpf (0 - 3) Urine Microscopic WBC 1 /HPF (0-3) Urine Squamous Epithelial Cells Few /hpf (<5) Urine Bacteria Few /hpf (None Seen) Urine Hyaline Casts Few /lpf (0 - 2) Urine Sodium 26 mmol/L (40-220) Urine Glucose Normal mg/dL (Normal) Lactic Acid Level 4.3 mmol/L (0.4-2.0) Troponin I High Sensitivity 22 ng/L (</=54) Test 01/16/25 01:04 Prothrombin Time 15.5 sec (9.3-11.8) Prothrombin Time INR 1.52 (0.9-1.15) Activated Partial Thromboplast Time 36.2 SEC (24.5-34.5) Other Laboratory Tests 01/29/25 06:11 Brief Hx & Hospital Course: 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 Patient states that he has had to have a paracentesis about every week. He has been working with his primary care provider and his liver specialist to try and get the paracentesis scheduled as an outpatient. large volume para done, patient was admitted to ICU for hypotension and pressors, albumin given afer every para. received 2 more procedures, started on midodrine and now improving, no RODOLFO, able to ambulate freely. stable to be discharged home. para done 4 L prior to DC. patient to follow up with PCP and GI, plan to do routine para. this visit cortisol innarorpriately low, started on steroids with improvement. will DC with taper. Condition at Discharge: Good Final Diagnosis/Problems List end stage liver disease cirrhosis septic shock Discharge Disposition: Home Discharge Instruct/Medications Diet: Regular Activity: No Restrictions, As Tolerated Follow Up/Referral: GI IR PCP DC clinic Discharge Statement: "Patient was advised to return to the ER or call 911 if any headaches, dizziness, shortness of breath, chest pain, abdominal pain, bleeding, fevers, or worsening of medical condition. Patient was counseled about treatment plan, medications, possible side effects, patientverbalized understanding. All questions were answered to the best of my ability. This discharge took greater then 30 minutes in planning, reviewing documentation, counseling the patient, and discussing with other team members." ASSESSMENT ASSESSMENT Assessment cirrhosis with ascites distributive shock hyperkalemia lactic acidosis hyperbilirubinemia transminitis anemia normocytic anemia hyponatremia ascites s/p paracentesis possible colitis rodolfo vmn oliguria hepatic encephalopathy? (resolved) presumed adrenal insufficiency Date of Service: Jan 29, 2025 Billing Provider: [facility] ALEXANDER MD Common Visit Codes: [id number]/OBS DISCH DAY >30min VA ALEXANDER MD Jan 29, 2025 16:45
--- NOTE | 2025-01-29 16:47 | DVHNC2 ---
Other Procedure Procedure Paracentesis Informed consent obtained: Yes Risks, benefits, and alternati: Yes Notes A time-out was performed. My hands were washed immediately prior to the procedure. I wore a surgical cap, mask with protective eyewear, sterile gown and sterile gloves throughout the procedure. The area was cleansed and draped in usual sterile fashion using chlorhexidine scrub. Anesthesia was achieved with 1% lidocaine. The left side of the abdomen was prepped and draped in a sterile fashion using chlorhexidine scrub. 1% lidocaine was used to numb the skin, soft tissue and peritoneum. The paracentesis catheter was inserted and advanced with negative pressure until roxanna colored fluid was aspirated. Approximately 60 mL of ascitic fluid was collected and sent for laboratory analysis. The catheter was then connected to the vaccutainer and 4 liters of additional ascitic fluid were drained. The catheter was removed and no leaking was noted. A compressive dressing was placed over the puncture wound. The patient tolerated the procedure well without any immediate complications. Date of Service: Jan 29, 2025 Billing Provider: VA ALEXANDER MD Common Visit Codes: PROCEDURE ONLY Procedure Codes: [id number] W/O IMAGING ARNULFO STOKES RESIDENT Jan 29, 2025 16:47 VA ALEXANDER MD Jan 30, 2025 20:18
[2025-01-29 22:13] LABS: Body Fluid Red Blood Cells 301 CUMM (0-2000); Body Fluid White Blood Cells 83 CUMM (0-200)
--- NOTE | 2025-01-29 23:14 | DVHPN2 ---
Progress Note - Dictate Date Seen: Jan 29, 2025 (Time of visit 5 pm) Medical Necessity Reason Pt with a Central, PICC or Fol: Yes The following are medically ne: Central Line, Anderson Catheter Subjective Awake alert and offers no complaints Hemoglobin and liver enzymes are stable Patient underwent paracentesis by the resident 60 mL of fluid was removed vital signs Vital Sign Date Time Temp Pulse Resp B/P (MAP) Pulse Ox O2 Delivery O2 Flow Rate FiO2 01/29/25 16:54 98.4 76 16 117/61 (79) 98 98.4 01/29/25 09:59 Room Air 0.0 01/29/25 09:59 21 Total Intake and Output 01/28/25 01/28/25 01/29/25 15:00 23:00 07:00 Intake Total 530 ml 725 ml 105 ml Output Total 300 ml 450 ml Balance 530 ml 425 ml -345 ml objective aox3 clear breath sounds s1 s2 rrr abdomen distended, fluid shift + no sx of hepatic encep no LE edema laboratory and microbiology Laboratory Tests 01/29/25 06:11 Test 01/29/25 06:11 Range/Units Serum Glucose 120 H 74-106 mg/dL Problems(with codes): (1) Hepatic encephalopathy (2) Elevated liver enzymes (3) Coagulopathy (4) Cirrhosis of liver with ascites Prognosis PLAN Patient appears to have stabilized from a GI point of view He is requiring lactulose 30 mL once a day Taper steroids and start PT Discharge planning is in progress; my contact information was given to the patient Patient will follow up with GI Services as an outpatient to arrange outpatient elective paracentesis and monitor his liver condition Dietary Evaluation Review Comments: 1. Agree with 2 gm Na diet, 1 L fluid/day per nephrology 2. Encourage good oral intakes >75% of meals, snacks PRN 3. May consider Ensure Enlive 1x/day to enhance caloric and protein intake if within fluid restriction limitations (provides 350 kcal, 20 gm pro, 237 ml fluid) Expected Outcomes/Goals: Adequate nutrition, improved lab values. Plan discussed with: Patient GABRIELLA MAZARIEGOS MD Jan 29, 2025 23:14
--- NOTE | 2025-01-30 12:54 | DVHSR ---
APPROVED REPORT EXAM: LIMITED Two-dimensional and M-mode echocardiogram with Doppler and color Doppler. Blood Pressure: 110/65 mmHg INDICATION Shock RISK FACTORS Height: 5' 10", Weight: 192 DIMENSIONS LVDd4.2 (3.8-5.7cm)LA (2D)3.7 (1.9-4.0cm)Aortic Root3.9 (2.0-3.7cm) LVDs2.6 (2.5-4.0cm)LA (MM) (1.9-4.0cm)Aortic Cusp Exc1.6 (1.5-2.0cm) EF (%) 65.0 (55-70%)Rt. Atrium (1.9-4.0cm)Asc. Aorta3.7 cm IVSd1.2 (0.7-1.1cm)RV (D) (1.8-2.4cm) PWd1.2 (0.7-1.1cm) Mitral Valve MitralMitral Stenosis E wave0.80m/sMV Mean GR.mmHg A wave1.00m/sMV Peak GR.mmHg E/A ratio0.82D MVAcm2 Aortic Valve Aortic ValveAortic Stenosis V11.40m/Gaye Mean GR.6mmHg V21.60m/Gaye Peak GR.11mmHg LVOT Diameter2.2 (1.8-2.4cm)Doppler AVA3.32cm2 AI P 1/2 Fsab359.77ms Pulmonic Valve V21.00m/s Other Information Quality : Technically LimitedRhythm : Technically limited study due to body habitus. Conclusion Sinus rhythm. Concentric LVH. Mild aortic root enlargement. Mild aortic sclerosis. Left ventricular function is preserved at 65-70% with normal RV function. [id number] aortic insufficiency. No pericardial effusion masses or vegetations.
--- NOTE | 2025-01-30 18:50 | DVHPN2 ---
Progress Note - Dictate Date Seen: Jan 29, 2025 Medical Necessity Reason Pt with a Central, PICC or Fol: Yes The following are medically ne: Central Line Subjective Patient seen and examined at bedside. Breathing comfortably on room air. Overnight events reviewed. vital signs Vital Sign Date Time Temp Pulse Resp B/P (MAP) Pulse Ox O2 Delivery O2 Flow Rate FiO2 01/29/25 16:54 98.4 76 16 117/61 (79) 98 98.4 01/29/25 09:59 Room Air 0.0 01/29/25 09:59 21 Total Intake and Output 01/29/25 01/29/25 01/30/25 15:00 23:00 07:00 Intake Total 270 ml 1120 ml Balance 270 ml 1120 ml objective Gen.: Patient lying in bed in no apparent distress. Breathing on room air. Head: Normocephalic, atraumatic. Eyes: EOMI/PERRLA. Ears: Normal hearing. Normal anatomy. Neck/trachea: Trachea midline, supple. Nose: Normal external anatomy. Mouth: Moist mucous membranes. Chest: Decreased air entry bilaterally. No wheezing or rhonchi. Cardiovascular: Positive S1, positive S2. Regular rate and rhythm. Abdomen: Positive bowel sounds in all 4 quadrants. Soft, non-tender, non- distended. : Deferred. Rectal: Deferred. Skin: Warm, dry. Intact. Extremities: 2+ radial pulses bilaterally. No lower extremity edema. Neuro: Awake, alert, oriented x3. No gross motor or sensory deficits. Cranial nerves II through XII intact. Gait not assessed. laboratory and microbiology Laboratory Tests 01/29/25 06:11 Test 01/29/25 06:11 Range/Units Serum Glucose 120 H 74-106 mg/dL Assessment/Plan Impression: Liver cirrhosis Ascites s/p paracentesis Coagulopathy Transaminitis Anemia Hyponatremia Obesity Events: Breathing on room air Supplemental oxygen PRN Patient underwent paracentesis with 60 mL of fluid removed Continue diuresis Taper steroids Continue bronchodilators Monitor renal function. Monitor electrolytes. Supplement as necessary. Monitor hyponatremia - sodium of 130 PT Disposition per hospitalist Labs and imaging reviewed. Rest of plan as noted below. Plan: On room air Supplemental oxygen PRN Patient with jaundice Monitor LFTs. Pressors if necessary for hemodynamic support Titrate to keep mean arterial pressure greater than 65 mmHg S/p paracentesis on 01/16/25 Antibiotics Incentive spirometry Midodrine - monitor blood pressure Albumin Lactulose Monitor H&H GI recs appreciated Diet and lifestyle modifications for weight reduction Obesity - complicates all care Diurese as tolerated w/ Lasix Monitor renal function. Monitor electrolytes. Supplement as necessary. Monitor sodium d/t hyponatremia Magnesium replacement Monitor ins and outs. GI/DVT prophylaxis. Prognosis: Poor given patient's multiple co-morbidities. Rest of plan per hospitalist and other consultants. Thank you Dr. Hernandez, for allowing me to participate in this patient's care. Further recommendations will depend on the patient's clinical course. Please do not hesitate to contact me if you have any questions or concerns. This medical document was created using an electronic medical record system with [employer] dictation system. Although these documentations are being carefully reviewed, there may still be some phonetic and typographical changes. The errors are purely typographical, due to imperfection on the software program, and do not reflect any compromise in the patient's medical care. Dietary Evaluation Review Comments: 1. Agree with 2 gm Na diet, 1 L fluid/day per nephrology 2. Encourage good oral intakes >75% of meals, snacks PRN 3. May consider Ensure Enlive 1x/day to enhance caloric and protein intake if within fluid restriction limitations (provides 350 kcal, 20 gm pro, 237 ml fluid) Expected Outcomes/Goals: Adequate nutrition, improved lab values. Plan discussed with: Patient, Other (RN) ROBERTO CLAY MD Jan 30, 2025 18:50
== END 2025-01-29 17:42 | disposition home or self-care (01) | DRG 280 ==
LOC: ER 23:50 → OVERFLOW 01-16 14:26 → ICU WEST 01-16 16:32 → ICU CENTRL 01-25 23:50 → TELE-WESTW 01-27 17:02
PROVIDERS: ADMIT Student in an Organized Health Care Education/Training Program; ATTEND Student in an Organized Health Care Education/Training Program
PROC: 06HY33Z Insertion of Infusion Device into Lower Vein, Percutaneous Approach (ICD-10-PCS; principal; 2025-01-16)
PROC: 0W9G3ZZ Drainage of Peritoneal Cavity, Percutaneous Approach (ICD-10-PCS; 2025-01-16)
PROC: 0W9G3ZZ Drainage of Peritoneal Cavity, Percutaneous Approach (ICD-10-PCS; 2025-01-21)
PROC: 0W9G3ZZ Drainage of Peritoneal Cavity, Percutaneous Approach (ICD-10-PCS; 2025-01-29)
DX: K70.31 Alcoholic cirrhosis of liver with ascites (principal); N17.0 Acute kidney failure with tubular necrosis; J96.01 Acute respiratory failure with hypoxia; R57.8 Other shock; R65.21 Severe sepsis with septic shock; A41.9 Sepsis, unspecified organism; D68.9 Coagulation defect, unspecified; E27.40 Unspecified adrenocortical insufficiency; E87.21 Acute metabolic acidosis; E87.1 Hypo-osmolality and hyponatremia; K72.10 Chronic hepatic failure without coma; E87.20 Acidosis, unspecified; D64.9 Anemia, unspecified; E87.5 Hyperkalemia; E80.6 Other disorders of bilirubin metabolism; K52.9 Noninfective gastroenteritis and colitis, unspecified; R34 Anuria and oliguria; T50.0X5A Adverse effect of mineralocorticoids and their antagonists, initial encounter; K76.82 Hepatic encephalopathy; R74.01 Elevation of levels of liver transaminase levels; F10.10 Alcohol abuse, uncomplicated; Y90.9 Presence of alcohol in blood, level not specified; E66.9 Obesity, unspecified; I12.9 Hypertensive chronic kidney disease with stage 1 through stage 4 chronic kidney disease, or unspecified chronic kidney disease; N18.9 Chronic kidney disease, unspecified; Z79.899 Other long term (current) drug therapy; Z68.27 Body mass index [BMI] 27.0-27.9, adult
CPT/HCPCS: 36415; 36556; 49082; 49083; 71045; 74176; 76942; 80048; 80053; 81001; 82140; 82533; 83605; 83735; 84100; 84132; 84300; 84484; 85007; 85025; 85027; 85610; 85730; 86704; 86706; 86708; 86803; 87040; 87081; 87205; 87340; 89051; 93005; 93306; 94640; 97110; 97116; 97163; 97530; G0378; J2003; J2470; J2543; J3480; J3490; P9047